=== PATIENT | female | born 1955 | race Two or more races ===

== ENCOUNTER 2017-08-01 11:55 | Emergency (ER) | payer BC ==
[~2017-08-01] VITALS: Ht 160 cm; Wt 57.6 kg
[~2017-08-01 11:55] MED LIST: AMIO100T4 PO; ANAS1TAB8 PO; ATEN-171 PO; BENA40TA2 PO; LEVO50TA8 PO; MIRT15TA7 PO; SERT25TA5 PO; SIMV40TA5 PO; WARF2TAB6 PO
[2017-08-01] MEDS ORDERED: IV NS 0.9% 250 ML IV ONE (12:00)
[2017-08-01] MEDS ORDERED: IOHEXOL-350 100 ML VIAL IV ONE (12:00)
[2017-08-01] MEDS ORDERED: METO25TA20 PO (12:08)
[2017-08-01] MEDS ORDERED: LEVO75TA7 PO (12:08)
[2017-08-01] MEDS: LIDOCAINE 100MG/5ML DISP SYR IV ONE (12:31)
[2017-08-01] MEDS ORDERED: NICARDIPINE IN DEXTROSE,ISO-OS 200 ML IV ONE (12:33)
[2017-08-01 12:36] LABS: BASOPHILS # (AUTO) 0.4 /CMM (0.0-0.2); BASOPHILS % (AUTO) 2.6 % (0.0-2.0); EOSINOPHILS # (AUTO) 0.2 /CMM (0.0-0.7); EOSINOPHILS % (AUTO) 1.8 % (0.0-6.0); HEMATOCRIT 34 % (33-45); HEMOGLOBIN 11.3 g/dL (11.5-14.8); LYMPHOCYTES # (AUTO) 2.1 /CMM (0.8-4.8); LYMPHOCYTES % (AUTO) 15.1 % (20.0-44.0); MEAN CORPUSCULAR HEMOGLOBIN 29 PG (26.0-33.0); MEAN CORPUSCULAR HGB CONC 33 g/dl (31.0-36.0); MEAN CORPUSCULAR VOLUME 86 fL (82-100); MONOCYTES # (AUTO) 1.4 /CMM (0.1-1.30); MONOCYTES % (AUTO) 10.4 % (2.0-12.0); NEUTROPHILS # (AUTO) 9.7 /CMM (1.8-8.9); NEUTROPHILS % (AUTO) 70.1 % (43.0-81.0); PLATELET COUNT (AUTO) 355 /CMM (150-450); RDW COEFFICIENT OF VARIATION 12.5 (11.5-15.0); RED BLOOD CELL COUNT(AUTO) 3.96 MIL/uL (4.0-5.2); WHITE BLOOD COUNT (AUTO) 13.8 K/uL (4.3-11.0)
[2017-08-01] MEDS: ETOMIDATE 2 MG/ML VIAL IV ONE (12:37)
[2017-08-01] MEDS: SUCCINYLCHOLINE CHLORIDE 20 MG/ML VIAL IV ONE (12:37)
[2017-08-01] MEDS: NICARDIPINE IN DEXTROSE,ISO-OS 200 ML IV ONE (12:39)
[2017-08-01 12:47] LABS: CALCIUM, SERUM 8.6 mg/dL (8.5-10.1); CREATININE 0.5 mg/dL (0.6-1.3); POTASSIUM 3.3 mmol/L (3.5-5.1)
[2017-08-01 12:49] LABS: INR 1.36 (0.87-1.13); PROTHROMBIN TIME 14.1 SECS (9.5-12.7)
[2017-08-01] MEDS: LEVETIRACETAM (500MG) 500 MG in IV NS 0.9% 100 ML IV SCH (12:50)
[2017-08-01 12:51] VITALS: BP 177/69
[2017-08-01] MEDS ORDERED: PROPOFOL 100 ML IV ONE (12:52)
[2017-08-01 12:53] LABS: ALBUMIN 3.1 g/dL (3.4-5.0); BILIRUBIN,DIRECT 0.1 mg/dL (0.0-0.2); BILIRUBIN,TOTAL 0.5 mg/dL (0.2-1.0); TOTAL PROTEIN, SERUM 7.8 g/dL (6.4-8.2)
[2017-08-01 12:56] LABS: TROPONIN I 0.038 ng/mL (0.00-0.056)
[2017-08-01] MEDS ORDERED: MANNITOL 50 ML IV ONE (12:57)
[2017-08-01] MEDS: PROPOFOL 100 ML IV ONE (13:10)
[2017-08-01] MEDS: MANNITOL 12.5 GM/50 ML VIAL IV ONE (13:10)
[2017-08-01] MEDS: PHYTONADIONE INJ 10 MG in IV D5W 50 ML SQ ONE (13:10)
[2017-08-01] MEDS: NICARDIPINE IN NACL, ISO-OSM 200 ML IV ONE (14:07)
== END 2017-08-01 14:16 | disposition home or self-care (01) ==
LOC: ER 11:57
DX: I62.9 Nontraumatic intracranial hemorrhage, unspecified (principal); J96.90 Respiratory failure, unspecified, unspecified whether with hypoxia or hypercapnia; E03.9 Hypothyroidism, unspecified; E78.00 Pure hypercholesterolemia, unspecified; I10 Essential (primary) hypertension; I25.2 Old myocardial infarction; I48.91 Unspecified atrial fibrillation; Z79.01 Long term (current) use of anticoagulants; Z86.711 Personal history of pulmonary embolism; Z86.73 Personal history of transient ischemic attack (TIA), and cerebral infarction without residual deficits; Z86.74 Personal history of sudden cardiac arrest; Z88.0 Allergy status to penicillin; Z93.0 Tracheostomy status; Z90.11 Acquired absence of right breast and nipple; Z93.1 Gastrostomy status
CPT/HCPCS: 31500; 36415; 70496; 70498; 71010 ×2; 80048; 80076; 84484; 85025; 85730; 86850; 93005; 96365; 96366; 96368; 96375; 99291; A4606; J0330; J1953; J2001; J2150 ×2; J3430; J3490 ×2; J7030; J7050; J7060; Q9967; Z7610

== ENCOUNTER 2017-09-16 12:03 | Inpatient (IN) | payer BC ==
[~2017-09-16] VITALS: Ht 160 cm; Wt 60.3 kg
[~2017-09-16 12:03] MED LIST changes: -ATEN-171 PO; -LEVO50TA8 PO; +LEVO75TA7 PO; +METO25TA20 PO
--- NOTE | 2017-09-16 12:03 | NUR ---
BBRA FROM SNF FOR SWOLLEN AND PROTRUDING TONGUE X 1 MONTH
--- NOTE | 2017-09-16 12:55 | NUR ---
RT: PT. 62 Y OLD FEMALE REC, IN ER PLACED ON [facility].VENT TRACHED PORTEX # 7 SETTINGS PER MD AND ALARMS ARE SET AND FUNCTIONAL. PT. LIGIA. WELL CONTINUE FOR MONITOR. AMBU BAG AT HE BEDSIDE. EQUAL CHEST RISE NOTED. VENT PLUGGED INTO RED OUTLET. Addendum: 09/16/17 at 1735 by AYDIN MCWILLIAMS RT Amended: Links added.
--- NOTE | 2017-09-16 13:00 | NUR ---
PORTEX 7 AC 16 TV 500 PEEP 5 FIO2 30 %
[2017-09-16 14:49] VITALS: BP 134/68
[2017-09-16 14:56] LABS: BASOPHILS # (AUTO) 0.1 /CMM (0.0-0.2); EOSINOPHILS # (AUTO) 0.4 /CMM (0.0-0.7); EOSINOPHILS % (AUTO) 4.4 % (0.0-6.0); HEMATOCRIT 30 % (33-45); HEMOGLOBIN 10.2 g/dL (11.5-14.8); LYMPHOCYTES # (AUTO) 1.6 /CMM (0.8-4.8); LYMPHOCYTES % (AUTO) 19.9 % (20.0-44.0); MEAN CORPUSCULAR HEMOGLOBIN 29 PG (26.0-33.0); MEAN CORPUSCULAR HGB CONC 34 g/dl (31.0-36.0); MEAN CORPUSCULAR VOLUME 86 fL (82-100); MONOCYTES # (AUTO) 0.9 /CMM (0.1-1.30); MONOCYTES % (AUTO) 11.2 % (2.0-12.0); NEUTROPHILS % (AUTO) 63.5 % (43.0-81.0); PLATELET COUNT (AUTO) 387 /CMM (150-450); RDW COEFFICIENT OF VARIATION 13.6 (11.5-15.0); RED BLOOD CELL COUNT(AUTO) 3.52 MIL/uL (4.0-5.2)
[2017-09-16 15:09] LABS: CARBON DIOXIDE 29 mmol/L (21-32); CHLORIDE 103 mmol/L (98-107); CREATININE 0.3 mg/dL (0.6-1.3); GLUCOSE 117 mg/dL (74-106); POTASSIUM 3.9 mmol/L (3.5-5.1); SODIUM SERUM 137 mmol/L (136-145); UREA NITROGEN, BLOOD 15 mg/dL (7-18)
[2017-09-16 15:12] LABS: INR 0.97 (0.87-1.13); PROTHROMBIN TIME 10.1 SECS (9.5-12.7)
[2017-09-16 15:15] LABS: ALANINE AMINOTRANSFERASE 22 U/L (12-78); ALBUMIN 2.4 g/dL (3.4-5.0); ALKALINE PHOSPHATASE 92 U/L (46-116); ASPARTATE AMINOTRANSFERASE 15 U/L (15-37); BILIRUBIN,TOTAL 0.2 mg/dL (0.2-1.0); TOTAL PROTEIN, SERUM 7.9 g/dL (6.4-8.2)
[2017-09-16 15:17] LABS: TROPONIN I < 0.017 ng/mL (0.00-0.056)
[2017-09-16] MEDS ORDERED: methylPREDNISolone SOD SUCC 125 MG/2ML VIAL IV ONE (16:00)
[2017-09-16] MEDS ORDERED: methylPREDNISolone SOD SUCC 125 MG/2ML VIAL ONE (16:08)
--- NOTE | 2017-09-16 16:14 | NUR ---
PT FURROWING EYEBROWS AND GRIMACING. MD NOTIFIED OF EXPRESSIONS OF PAIN. AWAITING ORDERS.
[2017-09-16] MEDS ORDERED: MAGN400O6 GT (16:25)
[2017-09-16] MEDS ORDERED: ACET-868 GT (16:25)
[2017-09-16] MEDS ORDERED: CALC-15 GT (16:25)
[2017-09-16] MEDS ORDERED: AMLO10TA2 GT (16:25)
[2017-09-16] MEDS ORDERED: LISI10TA5 GT (16:25)
[2017-09-16] MEDS ORDERED: METO50TA16 GT (16:25)
[2017-09-16] MEDS ORDERED: FERR220S2 GT (16:25)
[2017-09-16] MEDS ORDERED: LEVE100S GT (16:25)
[2017-09-16] MEDS ORDERED: HEPA50008 SQ (16:25)
[2017-09-16] MEDS ORDERED: HYDR-552 PO (16:25)
[2017-09-16] MEDS ORDERED: NA P133E RC (16:25)
[2017-09-16] MEDS ORDERED: SCOP1PAT TD (16:25)
[2017-09-16] MEDS ORDERED: ALBU2.5V38 IH (16:25)
[2017-09-16] MEDS ORDERED: CRAN3875 GT (16:25)
[2017-09-16] MEDS ORDERED: LEVO75TA7 GT (16:25)
[2017-09-16] MEDS ORDERED: DOCU-141 GT (16:25)
[2017-09-16] MEDS ORDERED: POLY15DR57 EACHEYE (16:25)
[2017-09-16] MEDS ORDERED: PANT40SU2 GT (16:25)
[2017-09-16] MEDS ORDERED: METRONIDAZOLE 500MG/ NS 100ML 100 ML IV ONE ×2 (16:30→17:03)
[2017-09-16] MEDS ORDERED: VANCOMYCIN 1 GM in IV D5W 250 ML IV ONE (16:30)
[2017-09-16] MEDS ORDERED: LACT-209 GT (16:50)
--- NOTE | 2017-09-16 16:54 | NUR ---
NAHID 113-1
[2017-09-16] MEDS ORDERED: HYDROMORPHONE 1 MG/1 ML DISP.SYRIN ONE (17:04)
[2017-09-16] MEDS ORDERED: ONDANSETRON HCL/PF 4 MG/2 ML VIAL ONE (17:04)
--- NOTE | 2017-09-16 17:12 | NUR ---
VERBAL ORDER DILAUDID 1MG AND ZOFRAN 4MG IVP X1 DR REEVES
[2017-09-16 17:23] VITALS: BP 130/73
--- NOTE | 2017-09-16 17:39 | NUR ---
GAVE REPORT TO STEWART RN NAHID ROOM 113 DR [facility] ADMITING LUDWIGS ANGINA
[2017-09-16] MEDS ORDERED: HYDROMORPHONE INJ 2 MG/ML DISP.SYRIN IV ONE (18:00)
[2017-09-16] MEDS ORDERED: ONDANSETRON HCL/PF 4 MG/2 ML VIAL IVP ONE (18:00)
--- NOTE | 2017-09-16 19:11 | NUR ---
RN NOTES - ADMISSION RECEIVED PATIENT FROM ER VIA RVERNON, TRANSFERRED TO ROOM 113-1, TOLERATED WELL. PATIENT IS ALERT AND ORIENTED X1 TO SELF, SOMETIMES NODDING YES/NO. PER FAMILY, PATIENT IS USUALLY MORE ALERT. TRACH MIDLINE AND INTACT, ON MECHANICAL VENTILATOR AT PRESCRIBED SETTINGS, TOLERATING WELL, FREE FROM ANY S/S OF RESPIRATORY DISTRESS. GT PATENT AND INTACT. IV SITE PATENT AND INTACT. SKIN ISSUES PHOTOGRAPHED AND DOCUMENTED PER PROTOCOL. BED IN LOWEST AND LOCKED POSITION. PLAN OF CARE DISCUSSED WITH THE PATIENT'S FAMILY MEMBERS, WHO VERBALIZE UNDERSTANDING. WILL CONTINUE TO CLOSELY MONITOR
[2017-09-16 20:00] VITALS: BP 159/82
[2017-09-16] MEDS ORDERED: NA PHOS,M-B/NA PHOS,DI-BA 1 EA ENEMA RC PRN (20:30)
[2017-09-16] MEDS ORDERED: Z GUARD REMEDY 2 OZ OINT TP PRN (20:30)
[2017-09-16] MEDS ORDERED: MAG HYDROX/AL HYDROX/SIMETH 30 ML UDC PO PRN (20:30)
[2017-09-16] MEDS ORDERED: MAGNESIUM HYDROXIDE 30 ML UDC GT PRN (20:30)
[2017-09-16] MEDS ORDERED: ACETAMINOPHEN 325 MG TABLET PO PRN ×2 (20:30)
[2017-09-16] MEDS ORDERED: HYDROCODONE/APAP 5/325MG 1 EACH TABLET PO SCH (20:30)
[2017-09-16] MEDS ORDERED: SCOPOLAMINE HBR 1 EA PATCH.TD72 TD SCH (20:30)
[2017-09-16] MEDS ORDERED: ZOLPIDEM TARTRATE 5 MG TABLET PO PRN (20:30)
[2017-09-16] MEDS ORDERED: MAGNESIUM HYDROXIDE 30 ML UDC PO PRN (20:30)
[2017-09-16] MEDS ORDERED: ONDANSETRON HCL/PF 4 MG/2 ML VIAL IVP PRN (20:30)
--- NOTE | 2017-09-16 20:35 | NUR ---
PT RECEIVED TRACHED PTX 7 ON VENT. NO RESP DISTRESS. PT TOLERATING VENT SETTINGS. SX'D FOR SML AMT OF THICK PALE SECRETIONS. VENT ALARMS SET AND AUDIBLE. AMBU BAG AT BEDSIDE. VENT PLUGGED INTO RED OUTLET. WILL CONTINUE TO MONITOR. Addendum: 09/16/17 at 2036 by OLGA HANEY RT Amended: Links added.
[2017-09-16] MEDS: HEPARIN SODIUM, PORCINE 5000 UNITS/1 ML VIAL SQ SCH (21:00)
--- NOTE | 2017-09-16 21:40 | NUR ---
RN NOTES - HEPARIN REFUSAL PATIENT'S FAMILY MEMBER AT BEDSIDE. TEACHING REGARDING MEDICATION RENDERED, BUT FAMILY REFUSES HEPARIN AT THIS TIME DUE TO TONGUE BLEEDING EARLIER IN THE DAY. NO NOTED BLEEDING AT THIS TIME, FAMILY MADE AWARE OF RISKS/CONSEQUENCES, WITH VERBALIZATION OF UNDERSTANDING, BUT STILL STRONGLY REFUSING. WILL CONTINUE TO CLOSELY MONITOR THE PATIENT
[2017-09-16] MEDS ORDERED: SCOPOLAMINE HBR 1 EA PATCH.TD72 TD ONE (21:49)
[2017-09-16] MEDS: FIBERSOURCE HN 1,000 ML BOTTLE GT PRN (22:00)
[2017-09-16] MEDS: DOCUSATE SODIUM 100 MG CAPSULE PO SCH (22:01)
[2017-09-16] MEDS: ALBUTEROL FS 2.5 MG/3 ML VIAL.NEB IH SCH (22:40)
--- NOTE | 2017-09-16 23:21 | NUR ---
RT NOTE: TRACH PT RECEIVED ON MECH VENT WITH NOTED SETTING. TRACH SECURED. CITY MAGISTRATE DONE. VENT PLUGGED INTO RED OUTLET. ALARMS SET AND AUDIBLE. AMBU BAG AT [facility]. NO SOB OR RESP DISTRESS NOTED. PRN SX GIVEN NEEDED. STARTED Q4 HHN TX ORDERED WITH NO ADVERSE REACTIONS. PATIENT'S FAMILY MEMBER AT BEDSIDE. WILL CONT TO MONITOR PT.
[2017-09-16] MEDS: HYDROCODONE/APAP 5/325MG 1 EACH TABLET PO PRN (23:22)
[2017-09-17] VITALS: BP 139/69
[2017-09-17] MEDS: ALBUTEROL FS 2.5 MG/3 ML VIAL.NEB IH SCH ×6 (03:13→23:07)
[2017-09-17 04:00] VITALS: BP 118/60
--- NOTE | 2017-09-17 07:00 | NUR ---
RN CLOSING NOTES PATIENT RESTING IN BED, APPEARS COMFORTABLE. WILL ENDORSE THE PATIENT TO THE AM SHIFT NURSE FOR EDWARD
[2017-09-17 07:56] LABS: HEMATOCRIT 33 % (33-45); HEMOGLOBIN 11.1 g/dL (11.5-14.8); LYMPHOCYTES % (AUTO) 11.8 % (20.0-44.0); MEAN CORPUSCULAR HEMOGLOBIN 29 PG (26.0-33.0); MEAN CORPUSCULAR HGB CONC 34 g/dl (31.0-36.0); MEAN CORPUSCULAR VOLUME 86 fL (82-100); MONOCYTES # (AUTO) 0.6 /CMM (0.1-1.30); MONOCYTES % (AUTO) 6.6 % (2.0-12.0); NEUTROPHILS % (AUTO) 81.6 % (43.0-81.0); PLATELET COUNT (AUTO) 414 /CMM (150-450); RDW COEFFICIENT OF VARIATION 14.3 (11.5-15.0); RED BLOOD CELL COUNT(AUTO) 3.79 MIL/uL (4.0-5.2); WHITE BLOOD COUNT (AUTO) 8.6 K/uL (4.3-11.0)
[2017-09-17 08:00] VITALS: BP 145/67
[2017-09-17] MEDS: PANTOPRAZOLE 40 MG/PACK PACK GT SCH (08:14)
[2017-09-17] MEDS: LEVETIRACETAM SOL (5 ML) 100 MG/ML UDC GT SCH ×2 (08:14→17:38)
[2017-09-17] MEDS: LEVOTHYROXINE SODIUM 75 MCG TABLET GT SCH (08:14)
[2017-09-17] MEDS: AMLODIPINE BESYLATE 10 MG TABLET GT SCH (08:15)
[2017-09-17] MEDS: METOPROLOL TARTRATE 50 MG TABLET GT SCH ×2 (08:15→17:40)
[2017-09-17] MEDS: methylPREDNISolone SOD SUCC 125 MG/2ML VIAL IV SCH ×3 (08:17→17:40)
[2017-09-17] MEDS: HEPARIN SODIUM, PORCINE 5000 UNITS/1 ML VIAL SQ SCH ×2 (08:19→21:48)
[2017-09-17 08:33] LABS: CALCIUM, SERUM 8.9 mg/dL (8.5-10.1); CREATININE 0.4 mg/dL (0.6-1.3); MAGNESIUM 2.2 mg/dL (1.8-2.4); PHOSPHORUS 4.3 mg/dL (2.5-4.9)
[2017-09-17] MEDS ORDERED: LISINOPRIL (10MG) 10 MG TABLET GT SCH (09:00)
[2017-09-17] MEDS ORDERED: diphenhydrAMINE HCL 50 MG/ML VIAL IV PRN (10:30)
[2017-09-17] MEDS: HYDROCODONE/APAP 5/325MG 1 EACH TABLET PO PRN ×2 (11:37→22:07)
[2017-09-17 12:00] VITALS: BP 146/61
[2017-09-17 16:00] VITALS: BP 133/55
--- NOTE | 2017-09-17 17:26 | NUR ---
RECEIVED PT ON [place] R860, VENT, ALARMS ON AND AUDIBLE, TRACH PATENT AND SECURED, AMBUBAG AT BEDSIDE, VENT PLUGGED INTO RED OUTLET, TXS GIVEN ORDERED NO ADVERSE REACTION NOTED PT STABLE. Addendum: 09/17/17 at 1730 by JAIRO CROSS RT Amended: Links added.
--- NOTE | 2017-09-17 19:30 | NUR ---
Received patient in the bed.No unusual signs or symptoms observed or reported,no signs of discomfort or distress.Female family member at bedside,assisting with emotional support and informing us of patient's needs,which we then take care off,no problems.
[2017-09-17 20:00] VITALS: BP 138/53
[2017-09-17] MEDS: DOCUSATE SODIUM 100 MG CAPSULE PO SCH (21:45)
--- NOTE | 2017-09-17 23:00 | NUR ---
Resting quietly,occasional suctioning required.Turn q2h and place in comfortable position,no problems.
[2017-09-18] VITALS: BP 149/55
--- NOTE | 2017-09-18 01:00 | NUR ---
family member member left about this time,no problems
[2017-09-18] MEDS: ALBUTEROL FS 2.5 MG/3 ML VIAL.NEB IH SCH ×6 (03:18→23:50)
[2017-09-18 04:00] VITALS: BP 147/61
[2017-09-18 07:37] LABS: CALCIUM, SERUM 8.7 mg/dL (8.5-10.1); CREATININE 0.5 mg/dL (0.6-1.3); POTASSIUM 3.5 mmol/L (3.5-5.1)
--- NOTE | 2017-09-18 07:51 | NUR ---
RN INITIAL NOTE: RECEIVED PT A/O1. ON TELE MONITORING SR. ON G TUBE FEEDING FIBERSOURCE AT 60ML/HR. SITE CLEAR AND PATENT. NO DISTRESS NOTED NO SOB NOTED. NO PAIN NOTED. L AC HEP LOCK. NO IV FLUIDS RUNNING. SITE CLEAR AND PATENT. RESTING COMFORTABLY IN BED. CALL LIGHT WITHIN REACH.
[2017-09-18 07:52] LABS: BASOPHILS % (AUTO) 0.3 % (0.0-2.0); EOSINOPHILS % (AUTO) 0.1 % (0.0-6.0); HEMATOCRIT 32 % (33-45); HEMOGLOBIN 10.5 g/dL (11.5-14.8); LYMPHOCYTES % (AUTO) 8.4 % (20.0-44.0); MEAN CORPUSCULAR HEMOGLOBIN 29 PG (26.0-33.0); MEAN CORPUSCULAR HGB CONC 33 g/dl (31.0-36.0); MEAN CORPUSCULAR VOLUME 86 fL (82-100); MONOCYTES # (AUTO) 1.6 /CMM (0.1-1.30); MONOCYTES % (AUTO) 13.5 % (2.0-12.0); NEUTROPHILS # (AUTO) 9.1 /CMM (1.8-8.9); NEUTROPHILS % (AUTO) 77.7 % (43.0-81.0); PLATELET COUNT (AUTO) 434 /CMM (150-450); RDW COEFFICIENT OF VARIATION 13.9 (11.5-15.0); RED BLOOD CELL COUNT(AUTO) 3.66 MIL/uL (4.0-5.2); WHITE BLOOD COUNT (AUTO) 11.7 K/uL (4.3-11.0)
[2017-09-18 08:00] VITALS: BP 167/66
[2017-09-18] MEDS: METOPROLOL TARTRATE 50 MG TABLET GT SCH ×2 (08:10→17:33)
[2017-09-18] MEDS: AMLODIPINE BESYLATE 10 MG TABLET GT SCH (08:10)
[2017-09-18] MEDS: LEVETIRACETAM SOL (5 ML) 100 MG/ML UDC GT SCH ×2 (08:10→17:32)
[2017-09-18] MEDS: LEVOTHYROXINE SODIUM 75 MCG TABLET GT SCH (08:10)
[2017-09-18] MEDS: PANTOPRAZOLE 40 MG/PACK PACK GT SCH (08:11)
[2017-09-18] MEDS: HEPARIN SODIUM, PORCINE 5000 UNITS/1 ML VIAL SQ SCH ×2 (08:11→21:19)
[2017-09-18] MEDS: methylPREDNISolone SOD SUCC 125 MG/2ML VIAL IV SCH ×3 (08:11→17:32)
[2017-09-18] MEDS: FIBERSOURCE HN 1,000 ML BOTTLE GT PRN (08:13)
[2017-09-18 12:00] VITALS: BP 142/56
--- NOTE | 2017-09-18 14:24 | NUR ---
RT. SPUTUM CULTURE DONE PER MD ORDER, ABRIL ALANIS MADE AWARE
[2017-09-18 16:00] VITALS: BP 142/60
[2017-09-18 16:10] LABS: APPEARANCE,URINE SL CLOUDY (CLEAR); BILIRUBIN,URINE NEGATIVE (NEGATIVE); BLOOD, URINE 1+ Ery/uL (NEGATIVE); COLOR,URINE YELLOW (YELLOW); KETONES,URINE NEGATIVE (NEGATIVE); LEUKOCYTE ESTERASE ,URINE 1+ (NEGATIVE); NITRITE, URINE NEGATIVE (NEGATIVE); PROTEIN,URINE NEGATIVE (NEGATIVE); UGLUCOSE NEGATIVE (NEGATIVE); UROBILINOGEN,URINE 0.2 EU/dL (0.2)
--- NOTE | 2017-09-18 16:14 | NUR ---
RT RECEIVED PT ON AC MODE ON GE VENT, ALARMS ON AND AUDIBLE, VENT PLUGGED INTO RED OUTLET, TRACH PATENT AND SECURED, AMBUBAG AT BEDSIDE, TXS GIVEN ORDERED NO ADVERSE REACTION NOTED, PT STABLE. Addendum: 09/18/17 at 1616 by JAIRO CROSS RT Amended: Links added.
[2017-09-18 16:38] LABS: BACTERIA,URINE Few /HPF (None Seen); SQUAMOUS EPITHELIAL CELL,UR Few /HPF (None Seen); WBC,URINE 21-50 /HPF (0-3)
[2017-09-18] MEDS: IV 1/2NS 1000 ML 1,000 ML IV PRN (17:50)
[2017-09-18] MEDS: LEVOFLOXACIN 750 MG /D5W 150ML 750 MG in PREMIX 1 EA IV SCH (17:51)
--- NOTE | 2017-09-18 18:46 | NUR ---
FLY FISHING GUIDE: CLOSING NOTE ADMINISTERED ALL MEDICATIONS ON TIME. NO ADVERSE REACTIONS NOTED. NO PAIN NOTED. A/OX1. NON-VERBAL. ON MECHANICAL VENTILATION. PORTEX 7, AC 16, TV 500, FIO2 30%, PEEP 5. ON BEDREST. ON FIBERSOURCE G-TUBE FEEDING AT RATE OF 60ML/HR. NO RESIDUAL NOTED. SITE CLEAR AND PATENT. L HAND #20 RUNNING 1/2 NS AT 60ML/HR. SITE CLEAR AND PATENT. TURNED AND REPOSITIONED Q 2HOURS. RESTING COMFORTABLY IN BED. CALL LIGHT WITHIN REACH.
--- NOTE | 2017-09-18 19:15 | NUR ---
RN INITIAL NOTES RECEIVED PATIENT IN BED, AROUSABLE WITH VERBAL AND TACTILE STIMULI WITH PATIENT'S EYE OPENING NOTED, POOR TRACKING. PATIENT ON MECH VENT VIA TRACH, TOLERATING CURRENT SETTINGS WELL WITH NO DISTRESS. AIRWAY SUCTIONED NEEDED. PATIENT IS SR ON TELE WITH HR OF 87. GT IN PLACE, GTF INFUSING, TOLERATED WELL WITH NO GASTRIC RESIDUAL. PATIENT NOTED WITH TONGUE PROTRUSION, NOTED WITH DRY AND SCALY TONGUE, ORAL CARE RENDERED NEEDED. L HAND G20, FLUSHED AND PATENT, NO SIGNS OF INFILTRATION, IVF ORDERED. PATIENT'S NEEDS ANTICIPATED AND MET. SAFETY AND COMFORT ENSURED. BED IN LOW AND LOCKED POSITION. CALL LIGHT IN REACH. WILL MONITOR. PATIENT'S FAMILY AT BEDSIDE.
[2017-09-18 20:00] VITALS: BP 149/58
[2017-09-18] MEDS: DOCUSATE SODIUM 100 MG CAPSULE PO SCH (21:09)
[2017-09-18] MEDS: HYDROCODONE/APAP 5/325MG 1 EACH TABLET PO PRN (23:54)
[2017-09-19] VITALS: BP 147/59
[2017-09-19] MEDS: FIBERSOURCE HN 1,000 ML BOTTLE GT PRN (00:01)
[2017-09-19] MEDS: ALBUTEROL FS 2.5 MG/3 ML VIAL.NEB IH SCH ×5 (02:53→19:27)
[2017-09-19] MEDS: IV 1/2NS 1000 ML 1,000 ML IV PRN (03:47)
[2017-09-19 04:00] VITALS: BP 148/60
--- NOTE | 2017-09-19 05:35 | NUR ---
END OF SHIFT. NO DISTRESS NOTED. VENT WELL FUNCTIONING WITH ALARMS ON AND AUDIBLE. AMBU BAG AT BEDSIDE. NO SOB/ DISTRESS NOTED ALL SHIFT. SX PRN MOD THICK YELLOW SECRETIONS. NO CHANGES NOTED IN PT STATUS.
--- NOTE | 2017-09-19 06:33 | NUR ---
RN CLOSING NOTE PATIENT WITH NO ACUTE CHANGE IN CONDITION OBSERVED OVERNIGHT. REMAINS SR WITH HR OF 88. PATIENT KEPT CLEAN AND DRY. AIRWAY SUCTIONED AND TRACH CARE DONE. ALL DUE MEDS GIVEN ORDERED. IVF ORDERED. GTF TOLERATED WELL, NO RESIDUAL. HOB ELEVATED. NEEDS ANTICIPATED AND MET. TURNED AND REPOSITIONED. WILL ENDORSE ACCORDINGLY FOR CONTINUITY OF CARE.
[2017-09-19 07:22] LABS: BASOPHILS % (AUTO) 0.1 % (0.0-2.0); EOSINOPHILS % (AUTO) 0.3 % (0.0-6.0); HEMATOCRIT 31 % (33-45); HEMOGLOBIN 10.5 g/dL (11.5-14.8); LYMPHOCYTES # (AUTO) 0.8 /CMM (0.8-4.8); LYMPHOCYTES % (AUTO) 6.3 % (20.0-44.0); MEAN CORPUSCULAR HEMOGLOBIN 29 PG (26.0-33.0); MEAN CORPUSCULAR HGB CONC 34 g/dl (31.0-36.0); MEAN CORPUSCULAR VOLUME 86 fL (82-100); MONOCYTES # (AUTO) 1.8 /CMM (0.1-1.30); MONOCYTES % (AUTO) 14.5 % (2.0-12.0); NEUTROPHILS # (AUTO) 9.9 /CMM (1.8-8.9); NEUTROPHILS % (AUTO) 78.8 % (43.0-81.0); PLATELET COUNT (AUTO) 323 /CMM (150-450); RDW COEFFICIENT OF VARIATION 14.9 (11.5-15.0); RED BLOOD CELL COUNT(AUTO) 3.58 MIL/uL (4.0-5.2); WHITE BLOOD COUNT (AUTO) 12.6 K/uL (4.3-11.0)
[2017-09-19 07:55] LABS: CALCIUM, SERUM 9.2 mg/dL (8.5-10.1); CREATININE 0.5 mg/dL (0.6-1.3); POTASSIUM 3.8 mmol/L (3.5-5.1)
[2017-09-19 08:00] VITALS: BP 153/65
[2017-09-19] MEDS: HEPARIN SODIUM, PORCINE 5000 UNITS/1 ML VIAL SQ SCH (10:05)
[2017-09-19] MEDS: methylPREDNISolone SOD SUCC 125 MG/2ML VIAL IV SCH ×3 (10:05→16:52)
[2017-09-19] MEDS: LEVOTHYROXINE SODIUM 75 MCG TABLET GT SCH (10:06)
[2017-09-19] MEDS: PANTOPRAZOLE 40 MG/PACK PACK GT SCH (10:07)
[2017-09-19] MEDS: METOPROLOL TARTRATE 50 MG TABLET GT SCH ×2 (10:07→16:52)
[2017-09-19] MEDS: AMLODIPINE BESYLATE 10 MG TABLET GT SCH (10:07)
[2017-09-19] MEDS: LEVETIRACETAM SOL (5 ML) 100 MG/ML UDC GT SCH ×2 (10:08→16:50)
[2017-09-19 12:00] VITALS: BP 155/66
[2017-09-19] MEDS ORDERED: methylPREDNISolone SOD SUCC IV (13:12)
[2017-09-19] MEDS ORDERED: MERO1VIA3 IV (13:12)
[2017-09-19 16:00] VITALS: BP 143/60
[2017-09-19 16:52] VITALS: BP 143/60
[2017-09-19] MEDS: LEVOFLOXACIN 750 MG /D5W 150ML 750 MG in PREMIX 1 EA IV SCH (17:00)
--- NOTE | 2017-09-19 17:52 | NUR ---
PATIENT TOLERATING MECHANICAL VENT ON CURRENT ORDERED SETTINGS. NO S/S OF RESPIRATORY DISTRESS. TRACH IS PATENT AND SECURE. VENT PLUGGED INTO RED OUTLET. ALARMS ARE SET AND FUNCTIONING. AMBU BAG AND BACKUP TRACH AT BEDSIDE. Addendum: 09/19/17 at 1753 by ROEL MOSCOSO RT Amended: Links added.
--- NOTE | 2017-09-19 19:16 | NUR ---
Patient refused discharge pictures of skin problems.
--- NOTE | 2017-09-19 20:15 | NUR ---
[facility] OFF THE FLOOR WITH EMS FOR TRANSPORT.
== END 2017-09-19 20:21 | DRG 811 ==
LOC: ER 14:38 → TELE-TD 17:08 → TELE1 20:47
PROVIDERS: ADMIT Family Medicine; ATTEND Family Medicine
PROC: 5A1945Z Respiratory Ventilation, 24-96 Consecutive Hours (ICD-10-PCS; principal; 2017-09-16)
DX: T78.3XXA Angioneurotic edema, initial encounter (principal); G93.49 Other encephalopathy; Z99.11 Dependence on respirator [ventilator] status; R40.3 Persistent vegetative state; J96.11 Chronic respiratory failure with hypoxia; Z93.0 Tracheostomy status; Z93.1 Gastrostomy status; Z86.73 Personal history of transient ischemic attack (TIA), and cerebral infarction without residual deficits; I10 Essential (primary) hypertension; E78.5 Hyperlipidemia, unspecified; E03.9 Hypothyroidism, unspecified; I25.10 Atherosclerotic heart disease of native coronary artery without angina pectoris; I25.2 Old myocardial infarction; R13.10 Dysphagia, unspecified; Z85.3 Personal history of malignant neoplasm of breast; Z86.711 Personal history of pulmonary embolism; Z90.11 Acquired absence of right breast and nipple; Z88.0 Allergy status to penicillin; D63.8 Anemia in other chronic diseases classified elsewhere; N39.0 Urinary tract infection, site not specified; B96.4 Proteus (mirabilis) (morganii) as the cause of diseases classified elsewhere; T46.4X5A Adverse effect of angiotensin-converting-enzyme inhibitors, initial encounter; Y84.8 Other medical procedures as the cause of abnormal reaction of the patient, or of later complication, without mention of misadventure at the time of the procedure; Y92.129 Unspecified place in nursing home as the place of occurrence of the external cause; K04.7 Periapical abscess without sinus; Z79.899 Other long term (current) drug therapy; Z86.74 Personal history of sudden cardiac arrest
CPT/HCPCS: 31720; 36415; 70486-TC; 71045-TC; 74018; 80048-TC; 80061-TC; 80076-TC; 81000-TC; 83605-TC; 83735-TC; 84100-TC; 84484-TC; 85025-TC; 85730-TC; 87040-TC; 87070-TC; 87081-TC; 87086-TC; 87186-TC; 94003-TC; 94640-TC; 94760-TC; A4216; A4606; A6403; J1170; J1644; J1953; J1956; J2405; J2930; J3370; J3490; J7060; Z7610

== ENCOUNTER 2017-11-12 23:21 | Inpatient (IN) | payer BC ==
[~2017-11-12] VITALS: Ht 167.6 cm; Wt 59.9 kg
[~2017-11-12 23:21] MED LIST changes: +ACET-868 GT; +ALBU2.5V38 IH; -AMIO100T4 PO; +AMLO10TA2 GT; -ANAS1TAB8 PO; -BENA40TA2 PO; +CALC-15 GT; +CRAN3875 GT; +DOCU-141 GT; +FERR220S2 GT; +HEPA50008 SQ; +HYDR-552 PO; +LACT-209 GT; +LEVE100S GT; +LEVO75TA7 GT; -LEVO75TA7 PO; +MAGN400O6 GT; +MERO1VIA3 IV; -METO25TA20 PO; +METO50TA16 GT; -MIRT15TA7 PO; +NA P133E RC; +PANT40SU2 GT; +POLY15DR57 EACHEYE; +SCOP1PAT TD; -SERT25TA5 PO; -SIMV40TA5 PO; -WARF2TAB6 PO; +methylPREDNISolone SOD SUCC IV
--- NOTE | 2017-11-12 23:25 | NUR ---
.TO BED 5 A 62 YO FEMALE PATIENT BIBRA FROM SNF FOR "POSSIBLE SEIZURE." PATIENT OPENS EYES, NONVERBAL, WITH TRACH TO MECH VENT, NOTED WITH RIGHT ARM TWITCHING. VSS. NAD NOTED. SKIN WARM AND DRY. MAINTAINED PATENT AIRWAY. COMFORT MEASURES RENDERED. SEIZURE PRECAUTIONS IN PLACE.
--- NOTE | 2017-11-12 23:38 | NUR ---
PT REC'D TRACHED PORTEX 7 VIA AMBU BAG 15LPM. PT PLACED ON NOTED [facility] VENT SETTINGS GIVEN FROM EMT. AMBU BAG BEDSIDE, ALARMS ARE SET AND AUDIBLE. VENT PLUGGED INTO RED OUTLET. WILL CONTINUE TO MONITOR. Addendum: 11/12/17 at 2347 by JANEE HENRIQUEZ RT Amended: Links added.
[2017-11-12 23:40] VITALS: BP 172/101
[2017-11-13] VITALS (7 sets, daily range): BP systolic 105–178; BP diastolic 53–101
[2017-11-13] MEDS ORDERED: LORAZEPAM INJ 2 MG/ML VIAL IV ONE
[2017-11-13] MEDS ORDERED: LEVETIRACETAM (500MG) 1,000 MG in IV NS 0.9% 100 ML IV SCH ×2
[2017-11-13] MEDS ORDERED: IV NS 0.9% 1,000 ML BAG IV ONE
[2017-11-13] MEDS ORDERED: LORAZEPAM INJ 2 MG/ML VIAL ONE (00:21)
--- NOTE | 2017-11-13 00:25 | NUR ---
started a saline lock on the left hand g18, blood drawn and sent to lab.
--- NOTE | 2017-11-13 00:29 | NUR ---
xr at bedside.
[2017-11-13] MEDS ORDERED: LEVETIRACETAM (500MG) 500 MG/5 ML VIAL IV ONE (00:44)
[2017-11-13 00:50] LABS: BASOPHILS % (AUTO) 0.5 % (0.0-2.0); EOSINOPHILS # (AUTO) 0.2 /CMM (0.0-0.7); EOSINOPHILS % (AUTO) 4.5 % (0.0-6.0); HEMATOCRIT 29 % (33-45); LYMPHOCYTES # (AUTO) 1.3 /CMM (0.8-4.8); MEAN CORPUSCULAR HEMOGLOBIN 30 PG (26.0-33.0); MEAN CORPUSCULAR HGB CONC 34 g/dl (31.0-36.0); MEAN CORPUSCULAR VOLUME 87 fL (82-100); MONOCYTES # (AUTO) 0.6 /CMM (0.1-1.30); MONOCYTES % (AUTO) 16.9 % (2.0-12.0); NEUTROPHILS # (AUTO) 1.6 /CMM (1.8-8.9); NEUTROPHILS % (AUTO) 44.1 % (43.0-81.0); PLATELET COUNT (AUTO) 291 /CMM (150-450); RDW COEFFICIENT OF VARIATION 15.4 (11.5-15.0); RED BLOOD CELL COUNT(AUTO) 3.39 MIL/uL (4.0-5.2); WHITE BLOOD COUNT (AUTO) 3.7 K/uL (4.3-11.0)
[2017-11-13 01:11] LABS: CALCIUM, SERUM 8.8 mg/dL (8.5-10.1); CREATININE 0.3 mg/dL (0.6-1.3); POTASSIUM 3.7 mmol/L (3.5-5.1)
[2017-11-13] MEDS ORDERED: OMEP20CA10 PO (04:13)
--- NOTE | 2017-11-13 04:57 | NUR ---
REPORT GIVEN TO SAWYER ALANIS FOR NAHID ADMISSION AND EDWARD.
--- NOTE | 2017-11-13 05:00 | NUR ---
RECEIVED PATIENT FROM ER BY STRETCHER- PATIENT IS VENT/TRACH DEPENDENT, NO DISTRESS NOTED, PATIENT WAS HELPED TO BED, PATIENT'S DAUGHTER AT THE BEDSIDE ATTENTIVE TO THE PATIENT. SAFETY MEASURES IMPLEMENTED. CONTINUE TO MONITOR
--- NOTE | 2017-11-13 05:23 | NUR ---
Transferred patient to ileana bed via als protocol, no incident noted.
[2017-11-13] MEDS ORDERED: MAGNESIUM HYDROXIDE 30 ML UDC PO PRN (07:00)
[2017-11-13] MEDS ORDERED: ALBUTEROL FS 2.5 MG/3 ML VIAL.NEB IH PRN (07:00)
[2017-11-13] MEDS ORDERED: MAG HYDROX/AL HYDROX/SIMETH 30 ML UDC PO PRN (07:00)
[2017-11-13] MEDS ORDERED: ACETAMINOPHEN 325 MG TABLET PO PRN (07:00)
[2017-11-13] MEDS ORDERED: ONDANSETRON HCL/PF 4 MG/2 ML VIAL IVP PRN (07:00)
[2017-11-13] MEDS ORDERED: Z GUARD REMEDY 2 OZ OINT TP PRN (07:00)
[2017-11-13] MEDS ORDERED: HYDROCODONE/APAP 5/325MG 1 EACH TABLET PO PRN (07:00)
[2017-11-13] MEDS ORDERED: ZOLPIDEM TARTRATE 5 MG TABLET PO PRN (07:00)
--- NOTE | 2017-11-13 08:09 | NUR ---
RN INITIAL NOTE PATIENT RECEIVED IN BED SLEEPING WITH FAMILY AT BESIDE, NO SEIZURE ACTIVITY NOTED AT THIS TIME, PATIENT PORTEX 7 AC 16 TV 500, PEEP [address] WE[address]. PATIENT [address] ON MONITOR PATIENT LABS MONITORED, RN WILL CONTINUE TO MONITOR THROUGHOUT THE DAY
[2017-11-13] MEDS: AMLODIPINE BESYLATE 10 MG TABLET GT SCH (08:51)
[2017-11-13] MEDS: LEVOTHYROXINE SODIUM 75 MCG TABLET GT SCH (08:51)
[2017-11-13] MEDS: POLYVINYL ALCOHOL 15 ML BOTTLE EACHEYE SCH ×2 (08:51→17:22)
[2017-11-13] MEDS: FERROUS SULFATE UDC 300 MG/5 ML UDC GT SCH ×2 (08:52→17:21)
[2017-11-13] MEDS: METOPROLOL TARTRATE 25 MG TABLET GT SCH ×2 (08:52→21:24)
[2017-11-13] MEDS: ENOXAPARIN SODIUM 40 MG/0.4 ML DISP.SYRIN SQ SCH (08:53)
[2017-11-13] MEDS ORDERED: Medication Not On Formulary EA (Cran/Vitc/Mannose/Inulin/Brom (Uti-Stat Liquid) 30 MG) GT SCH (09:00)
[2017-11-13] MEDS: FIBERSOURCE HN 1,000 ML BOTTLE GT PRN (14:03)
[2017-11-13 16:27] LABS: MAGNESIUM 2.1 mg/dL (1.8-2.4); PHOSPHORUS 4.5 mg/dL (2.5-4.9)
[2017-11-13] MEDS: LEVETIRACETAM SOL (5 ML) 100 MG/ML UDC PO SCH (17:21)
--- NOTE | 2017-11-13 18:16 | NUR ---
Rn closing note Patient remains stable throughout the day. All medications rendered, No SOB noted, patient tolerated vent settings well, no pain noted throughout the day. Vital signs with normal limits. Patient kept clean, dry, and comfortable at all times.Labs monitored throughout the shift, patient started on g-tube feeding FiberSource at 55ml/hr tolerating well no residuals noted , circulation noted without issues, patient remains alert at this time family at bedside, RN will endorse continuation of care to pm RN .
--- NOTE | 2017-11-13 18:39 | NUR ---
Patient is trach/vent dependent, resides at [facility] [phone]. She is bedbound and totally dependent with adl's. Will transfer back to [facility] once discharge. Addendum: 11/13/17 at 1850 by YOSELYN JADE RN Amended: Links added.
--- NOTE | 2017-11-13 19:30 | NUR ---
NAHID RN INITIAL NOTES RECEIVED PATIENT AWAKE, NON-VERBAL, VENT DEPENDENT. DAUGHTER AT BEDSIDE. NO RESPIRATORY DISTRESS NOTED. WITH VENT SETTINGS AC 16, TV 500, FIO2 35%, PEEP 5K. SPO2 98%. TRACH C/D/I. ON TELE MONITOR SR 61. WITH GT PATENT AND INTACT, IN PLACE, NO RESIDUAL NOTED. HOB ELEVATED. SIDE RAILS UP AND LOCKED. BED KEPT AT LOWEST POSITION. CALL LIGHT KEPT WITHIN EASY REACH. WILL CONTINUE TO MONITOR.
[2017-11-13 21:06] LABS: APPEARANCE,URINE CLEAR (CLEAR); BILIRUBIN,URINE NEGATIVE (NEGATIVE); BLOOD, URINE NEGATIVE Ery/uL (NEGATIVE); COLOR,URINE YELLOW (YELLOW); KETONES,URINE NEGATIVE (NEGATIVE); LEUKOCYTE ESTERASE ,URINE NEGATIVE (NEGATIVE); NITRITE, URINE NEGATIVE (NEGATIVE); PROTEIN,URINE NEGATIVE (NEGATIVE); UGLUCOSE NEGATIVE (NEGATIVE); UROBILINOGEN,URINE 0.2 EU/dL (0.2)
[2017-11-14] VITALS (7 sets, daily range): BP systolic 112–145; BP diastolic 56–76
--- NOTE | 2017-11-14 07:26 | NUR ---
NAHID RN CLOSING NOTES NO SIGNIFICANT CHANGES OVERNIGHT. NO RESPIRATORY DISTRESS NOTED. NO SEIZURE ACTIVITY. SEIZURE PRECAUTIONS OBSERVED. TOLERATED VENT SETTINGS, TOLERATING GTF, GT PATENT AND INTACT. KEPT CLEAN AND DRY. TURNED AND REPOSITIONED Q2 AND PRN. HOB ELEVATED. SIDE RAILS UP AND LOCKED. BED KEPT AT LOWEST POSITION. CONTINUITY OF CARE ENDORSED TO AM NURSE.
[2017-11-14 07:46] LABS: BASOPHILS % (AUTO) 1.1 % (0.0-2.0); EOSINOPHILS # (AUTO) 0.2 /CMM (0.0-0.7); EOSINOPHILS % (AUTO) 4.3 % (0.0-6.0); HEMATOCRIT 30 % (33-45); HEMOGLOBIN 10.5 g/dL (11.5-14.8); LYMPHOCYTES # (AUTO) 1.2 /CMM (0.8-4.8); LYMPHOCYTES % (AUTO) 28.2 % (20.0-44.0); MEAN CORPUSCULAR HEMOGLOBIN 30 PG (26.0-33.0); MEAN CORPUSCULAR HGB CONC 35 g/dl (31.0-36.0); MEAN CORPUSCULAR VOLUME 86 fL (82-100); MONOCYTES # (AUTO) 0.5 /CMM (0.1-1.30); MONOCYTES % (AUTO) 12.7 % (2.0-12.0); NEUTROPHILS # (AUTO) 2.3 /CMM (1.8-8.9); NEUTROPHILS % (AUTO) 53.7 % (43.0-81.0); PLATELET COUNT (AUTO) 307 /CMM (150-450); RDW COEFFICIENT OF VARIATION 15.6 (11.5-15.0); RED BLOOD CELL COUNT(AUTO) 3.52 MIL/uL (4.0-5.2); WHITE BLOOD COUNT (AUTO) 4.3 K/uL (4.3-11.0)
[2017-11-14 08:00] LABS: CALCIUM, SERUM 8.8 mg/dL (8.5-10.1); CREATININE 0.4 mg/dL (0.6-1.3); MAGNESIUM 2.1 mg/dL (1.8-2.4); PHOSPHORUS 4.6 mg/dL (2.5-4.9); POTASSIUM 3.4 mmol/L (3.5-5.1)
--- NOTE | 2017-11-14 08:00 | NUR ---
TD/RN AM SHIFT INITIAL NOTES RECEIVED PT AWAKE WITH AT BEDSIDE. PT OPEN EYES, NON-VERBAL, NO ACUTE CHANGE OF CONDITION OR GRIMACING NOTED. PT ON VENTILATOR WITH RATES SET PRESCRIBED, SATURATING @ 99%, LUNG SOUNDS CLEAR, SUCTIONED FOR AIRWAY CLEARANCE. RESPIRATIONS EVEN & UNLABORED. ON TELE WITH SINUS SUE, HR 52, ASYMPTOMATIC BP135/56. GT FEEDING ON GOING @ 70CC/HR, NO GASTRIC RESIDUAL NOTED, FLUSHED, PATENT. AM MEDS GIVEN, EXCEPT FOR METOPROLOL D/T DECREASED HR. IV SITE FLUSHED, PATENT WITH NO S/S OF INFECTION, SL. PT IS COMFORTABLE. CL WITHIN REACHED, SAFETY MAINTAINED AND SEIZURE PRECAUTION OBSERVED. ON GOING MONITORING.
[2017-11-14] MEDS: METOPROLOL TARTRATE 25 MG TABLET GT SCH ×2 (09:00→21:55)
[2017-11-14] MEDS ORDERED: PROSOURCE / PROSTAT (PYXIS) 30 ML UDC GT SCH (09:00)
[2017-11-14] MEDS: LEVOTHYROXINE SODIUM 75 MCG TABLET GT SCH (09:32)
[2017-11-14] MEDS: LEVETIRACETAM SOL (5 ML) 100 MG/ML UDC PO SCH ×2 (09:33→21:55)
[2017-11-14] MEDS: FERROUS SULFATE UDC 300 MG/5 ML UDC GT SCH ×2 (09:33→16:24)
[2017-11-14] MEDS: POLYVINYL ALCOHOL 15 ML BOTTLE EACHEYE SCH ×2 (09:33→16:24)
[2017-11-14] MEDS: AMLODIPINE BESYLATE 10 MG TABLET GT SCH (09:33)
[2017-11-14] MEDS: ENOXAPARIN SODIUM 40 MG/0.4 ML DISP.SYRIN SQ SCH (09:36)
[2017-11-14] MEDS: FIBERSOURCE HN 1,000 ML BOTTLE GT PRN (09:44)
[2017-11-14] MEDS ORDERED: POTASSIUM CHLORIDE 20 MEQ TAB.PRT.SR PO ONE ×2 (10:30→13:00)
[2017-11-14] MEDS ORDERED: FIBERSOURCE HN 1,000 ML BOTTLE GT PRN (11:00)
--- NOTE | 2017-11-14 12:00 | NUR ---
TD/RN NOON ROUNDS PT'S AT BEDSIDE. PROVIDED PERICARE, NO CHANGE OF CONDITION. MONITORING CONTINUED.
[2017-11-14] MEDS ORDERED: LEVE100S PO (13:26)
--- NOTE | 2017-11-14 19:30 | NUR ---
NAHID/RN NOTES: RECEIVED PT. IN BED AWAKE W/ DAUGHTER AT BEDSIDE. PT OPEN EYES, NON-VERBAL, NO ACUTE RESPIRATORY DISTRESS NOTED. NO FACIAL GRIMACES OR MOANING NOTED. PT ON VENTILATOR WITH RATES SET PRESCRIBED, SATURATING @ 99%, LUNG SOUNDS CLEAR, SUCTIONED FOR AIRWAY CLEARANCE. RESPIRATIONS EVEN & UNLABORED. ON TELE WITH SR HR 72. GT FEEDING ON GOING @ 70CC/HR, NO GASTRIC RESIDUAL NOTED, FLUSHED, PATENT. IV SITE FLUSHED, PATENT AND INTACT W/ NO S/S OF INFECTION/INFILTRATION NOTED. PT IS COMFORTABLE. CL WITHIN REACHED, SAFETY MAINTAINED AND SEIZURE PRECAUTION OBSERVED.
--- NOTE | 2017-11-14 19:45 | NUR ---
TD/RN AM SHIFT END NOTES ALL NEEDS MET. NO ACUTE CHANGE OF CONDITION NOTED DURING THE SHIFT. PT ENDORSED TO PM TO CONTINUE CARE AND COMPLETE DISCHARGE PROTOCOLS. PT SCHEDULED FOR TRANSPORT PICK-UP @ 10:00PM. CL WITHIN REACHED AND SAFETY MAINTAINED.
--- NOTE | 2017-11-14 22:00 | NUR ---
NAHID/RN NOTES: REPORT CALLED IN TO ZEKE MCGRATH AT [facility] [phone].
--- NOTE | 2017-11-14 22:31 | NUR ---
NAHID/RN NOTES: [facility]. 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
--- NOTE | 2017-11-14 22:38 | NUR ---
NAHID/RN NOTES: PT. LEFT VIA STRETCHER W/ RESPIRATORY THERAPIST AND TWO STAFF W/ HER DAUGHTER IN STABLE CONDITION.
== END 2017-11-14 22:40 | DRG 53 ==
LOC: ER 23:25 → TELE-TD 11-13 04:32
PROVIDERS: ADMIT Nurse Practitioner Acute Care; ATTEND Nurse Practitioner Acute Care
PROC: 5A1945Z Respiratory Ventilation, 24-96 Consecutive Hours (ICD-10-PCS; principal; 2017-11-13)
DX: R56.9 Unspecified convulsions (principal); Z99.11 Dependence on respirator [ventilator] status; J90 Pleural effusion, not elsewhere classified; J96.11 Chronic respiratory failure with hypoxia; Z93.0 Tracheostomy status; R13.10 Dysphagia, unspecified; I69.354 Hemiplegia and hemiparesis following cerebral infarction affecting left non-dominant side; J98.11 Atelectasis; Z93.1 Gastrostomy status; Z90.11 Acquired absence of right breast and nipple; Z86.711 Personal history of pulmonary embolism; Z85.3 Personal history of malignant neoplasm of breast; E78.5 Hyperlipidemia, unspecified; I10 Essential (primary) hypertension; I25.10 Atherosclerotic heart disease of native coronary artery without angina pectoris; E03.9 Hypothyroidism, unspecified; D64.9 Anemia, unspecified; Z88.1 Allergy status to other antibiotic agents; Z88.0 Allergy status to penicillin
CPT/HCPCS: 31720; 36415; 70450-TC; 71045-TC; 80048-TC; 80061-TC; 81000-TC; 83735-TC; 84100-TC; 85025-TC; 87081-TC; 94002-TC; 94003-TC; 94760-TC; 99082-TC; A4606; J1650; J1953; J2060; J7030; Z7610

== ENCOUNTER 2019-02-12 11:20 | Inpatient (IN) | payer MEDICARE, BC ==
[2019-02-12] VITALS (19 sets, daily range): BP systolic 81–141; BP diastolic 36–96
[~2019-02-12] VITALS: Ht 157.5 cm; Wt 81.6 kg
[~2019-02-12 11:20] MED LIST changes: -AMLO10TA2 GT; +AMLO10TA7 GT; -CALC-15 GT; +FERR220S18 GT; -FERR220S2 GT; +HYDR-4384 PO; -HYDR-552 PO; -LEVE100S GT; +LEVE100S PO; -MERO1VIA3 IV; +OMEP20CA10 PO; -PANT40SU2 GT; -methylPREDNISolone SOD SUCC IV
[2019-02-12 11:54] LABS: BASOPHILS % (AUTO) 0.2 % (0.0-2.0); EOSINOPHILS % (AUTO) 0.8 % (0.0-6.0); HEMATOCRIT 40 % (33-45); HEMOGLOBIN 13.3 g/dL (11.5-14.8); LYMPHOCYTES % (AUTO) 10.4 % (20.0-44.0); MEAN CORPUSCULAR HGB CONC 33 g/dl (31.0-36.0); MEAN CORPUSCULAR VOLUME 88 fL (82-100); MONOCYTES # (AUTO) 1.1 /CMM (0.1-1.30); MONOCYTES % (AUTO) 11.3 % (2.0-12.0); NEUTROPHILS # (AUTO) 7.7 /CMM (1.8-8.9); NEUTROPHILS % (AUTO) 77.3 % (43.0-81.0); PLATELET COUNT (AUTO) 263 /CMM (150-450); RED BLOOD CELL COUNT(AUTO) 4.53 MIL/uL (4.0-5.2); WHITE BLOOD COUNT (AUTO) 9.9 K/uL (4.3-11.0)
[2019-02-12] MEDS ORDERED: CHLO473M5 MM (11:58)
[2019-02-12] MEDS ORDERED: POTA20PA34 GT (11:58)
[2019-02-12] MEDS ORDERED: SCOP1PAT17 TD (11:58)
[2019-02-12] MEDS ORDERED: ACET650S26 GT (11:58)
[2019-02-12] MEDS ORDERED: MELA5TAB GT (11:58)
[2019-02-12] MEDS ORDERED: IPRA0.2S9 IH (11:58)
[2019-02-12] MEDS ORDERED: LORA10TA7 GT (11:58)
[2019-02-12] MEDS ORDERED: FURO-145 GT (11:58)
[2019-02-12] MEDS ORDERED: CLON0.5T12 GT (11:58)
[2019-02-12] MEDS ORDERED: APIX2.5T GT (11:58)
[2019-02-12] MEDS ORDERED: ALBU2.5V38 IH (11:58)
[2019-02-12] MEDS ORDERED: LEVE100S GT (11:58)
[2019-02-12] MEDS ORDERED: MULT-24 GT (11:58)
[2019-02-12 11:59] LABS: CALCIUM, SERUM 8.2 mg/dL (8.5-10.1); CARBON DIOXIDE 26 mmol/L (21-32); CHLORIDE 94 mmol/L (98-107); CREATININE 0.6 mg/dL (0.6-1.3); GLUCOSE 194 mg/dL (74-106); SODIUM SERUM 129 mmol/L (136-145); UREA NITROGEN, BLOOD 18 mg/dL (7-18)
[2019-02-12] MEDS ORDERED: DILTIAZEM HCL 25 MG IV ONE (11:59)
[2019-02-12] MEDS ORDERED: DILTIAZEM HCL 25 MG IV IV ONE (12:00)
[2019-02-12 12:12] LABS: ALANINE AMINOTRANSFERASE 19 U/L (12-78); ALBUMIN 2.6 g/dL (3.4-5.0); ALKALINE PHOSPHATASE 90 U/L (46-116); ASPARTATE AMINOTRANSFERASE 26 U/L (15-37); B-TYPE NATRIURETIC PEPTIDE 11424 PG/ML (0-125); BILIRUBIN,DIRECT 0.2 mg/dL (0.0-0.2); BILIRUBIN,TOTAL 0.5 mg/dL (0.2-1.0); TOTAL PROTEIN, SERUM 6.7 g/dL (6.4-8.2)
[2019-02-12] MEDS ORDERED: DILTIAZEM HCL IV 125 MG in IV D5W 100 ML IV PRN (13:00)
[2019-02-12 13:33] LABS: APPEARANCE,URINE Cloudy (CLEAR); BILIRUBIN,URINE Negative (NEGATIVE); BLOOD, URINE Small Ery/uL (NEGATIVE); COLOR,URINE Yellow (YELLOW); KETONES,URINE Trace (NEGATIVE); LEUKOCYTE ESTERASE ,URINE Small (NEGATIVE); NITRITE, URINE Negative (NEGATIVE); PH,URINE 5.5 (5.0-8.0); PROTEIN,URINE 100 mg/dl (NEGATIVE); UGLUCOSE Negative (NEGATIVE)
[2019-02-12 13:44] LABS: BACTERIA,URINE Moderate /HPF (None Seen); SQUAMOUS EPITHELIAL CELL,UR Few /HPF (None Seen); WBC,URINE 80-100 /HPF (0-3)
[2019-02-12] MEDS ORDERED: ACETAMINOPHEN 650 MG/SUPP.RECT RC PRN (15:00)
[2019-02-12] MEDS ORDERED: ONDANSETRON HCL/PF 4 MG/2 ML VIAL IVP PRN (15:00)
[2019-02-12] MEDS ORDERED: AMIODARONE 900 MG in IV D5W 482 ML IV PRN (15:00)
[2019-02-12] MEDS ORDERED: AMIODARONE 150 MG in IV D5W 100 ML IV ONE (15:00)
[2019-02-12] MEDS ORDERED: ZOLPIDEM TARTRATE 5 MG TABLET PO PRN (15:00)
[2019-02-12] MEDS ORDERED: BUMETANIDE INJ 8 MG in IV NS 0.9% 48 ML IV ONE (15:30)
[2019-02-12] MEDS: SCOPOLAMINE HBR 1 EA PATCH.TD72 TD SCH (16:41)
[2019-02-12] MEDS: clonazePAM 0.5 MG TABLET GT SCH (17:00)
[2019-02-12] MEDS: PROSOURCE / PROSTAT (PYXIS) 30 ML UDC GT SCH (17:00)
[2019-02-12 17:52] LABS: ABG BASE EXCESS 2.1 mmol/L; ABG OXYGEN SATURATION 95.7 % (92.0-98.5); ABG PCO2 28.4 mmHg (35.0-45.0); ABG PH 7.537 (7.350-7.450); ABG PO2 81.5 mmHg (75.0-100.0); AaDO2 243.1 mmHg; COHb 0.1 % (0.5-1.5); MetHb 0.5 % (0.0-1.5); O2Hb 95.1 % (94.0-97.0); SITE, ABG Left Radial; VENT MODE, BG AC 12 450 50% +5
[2019-02-12] MEDS: CLINDAMYCIN 600 MG in IV NS 0.9% 50 ML IV SCH (18:37)
[2019-02-12] MEDS: APIXABAN 2.5 MG TABLET GT SCH (18:39)
[2019-02-12] MEDS: MEROPENEM 1 G in IV NS 0.9% 100 ML IV SCH (19:40)
[2019-02-12] MEDS: ALBUTEROL FS 2.5 MG/3 ML VIAL.NEB NEB SCH ×2 (19:46→23:51)
[2019-02-12] MEDS: JEVITY 1.2 CAL 1,000 ML BOTTLE GT SCH (20:11)
[2019-02-12] MEDS: LEVETIRACETAM SOL (5 ML) 100 MG/ML UDC GT SCH (20:11)
[2019-02-12] MEDS: CHLORHEXIDINE GLUCONATE 15 ML UDC MM SCH (20:11)
[2019-02-13] VITALS (40 sets, daily range): BP systolic 107–149; BP diastolic 21–86
[2019-02-13] MEDS: CLINDAMYCIN 600 MG in IV NS 0.9% 50 ML IV SCH ×2 (00:36→07:57)
[2019-02-13] MEDS: MEROPENEM 1 G in IV NS 0.9% 100 ML IV SCH ×3 (01:08→17:12)
[2019-02-13] MEDS: ALBUTEROL FS 2.5 MG/3 ML VIAL.NEB NEB SCH ×6 (03:58→23:52)
[2019-02-13 05:21] LABS: BASOPHILS # (AUTO) 0.1 /CMM (0.0-0.2); BASOPHILS % (AUTO) 0.8 % (0.0-2.0); EOSINOPHILS % (AUTO) 1.3 % (0.0-6.0); HEMATOCRIT 36 % (33-45); HEMOGLOBIN 12.3 g/dL (11.5-14.8); LYMPHOCYTES # (AUTO) 1.8 /CMM (0.8-4.8); LYMPHOCYTES % (AUTO) 23.2 % (20.0-44.0); MEAN CORPUSCULAR HGB CONC 34 g/dl (31.0-36.0); MEAN CORPUSCULAR VOLUME 86 fL (82-100); MONOCYTES # (AUTO) 1.2 /CMM (0.1-1.30); MONOCYTES % (AUTO) 15.9 % (2.0-12.0); NEUTROPHILS # (AUTO) 4.4 /CMM (1.8-8.9); NEUTROPHILS % (AUTO) 58.8 % (43.0-81.0); PLATELET COUNT (AUTO) 253 /CMM (150-450); RED BLOOD CELL COUNT(AUTO) 4.22 MIL/uL (4.0-5.2); WHITE BLOOD COUNT (AUTO) 7.6 K/uL (4.3-11.0)
[2019-02-13 05:29] LABS: ALBUMIN 2.5 g/dL (3.4-5.0); BILIRUBIN,TOTAL 0.6 mg/dL (0.2-1.0); CREATININE 0.7 mg/dL (0.6-1.3); MAGNESIUM 1.8 mg/dL (1.8-2.4); PHOSPHORUS 4.5 mg/dL (2.5-4.9); TOTAL PROTEIN, SERUM 6.5 g/dL (6.4-8.2)
[2019-02-13 05:57] LABS: POTASSIUM 2.8 mmol/L (3.5-5.1)
[2019-02-13 06:06] LABS: THYROID STIMULATING HORMONE 4.08 uIU/mL (0.358-3.74)
[2019-02-13 06:18] LABS: EOSINOPHILS % (MANUAL) 1 % (0-4); LYMPHOCYTES % (MANUAL) 26 % (16-48); MONOCYTES % (MANUAL) 11 % (0-11.0); NEUTROPHILS % (MANUAL) 62 (42-76)
[2019-02-13] MEDS: POTASSIUM CL. PREMIX PERIPHER. 50 ML IV SCH ×6 (06:34→12:37)
[2019-02-13] MEDS: CHLORHEXIDINE GLUCONATE 15 ML UDC MM SCH ×2 (08:57→20:21)
[2019-02-13] MEDS: LEVETIRACETAM SOL (5 ML) 100 MG/ML UDC GT SCH ×2 (08:57→20:21)
[2019-02-13] MEDS: AMLODIPINE BESYLATE 10 MG TABLET GT SCH (08:58)
[2019-02-13] MEDS: LORATADINE 10 MG TABLET GT SCH (08:58)
[2019-02-13] MEDS: clonazePAM 0.5 MG TABLET GT SCH ×2 (08:58→17:13)
[2019-02-13] MEDS: POTASSIUM CHLORIDE 20 MEQ POWDER PACKET GT SCH (08:58)
[2019-02-13] MEDS: LEVOTHYROXINE SODIUM 75 MCG TABLET GT SCH (08:59)
[2019-02-13] MEDS ORDERED: FUROSEMIDE 20 MG TABLET GT SCH (09:00)
[2019-02-13] MEDS: APIXABAN 2.5 MG TABLET GT SCH ×2 (09:03→17:14)
[2019-02-13] MEDS: MULTIVITAMINS,THERAGRAN 1 UDTAB TABLET GT SCH (09:04)
[2019-02-13 09:33] LABS: ABG BASE EXCESS 6.3 mmol/L; ABG OXYGEN SATURATION 98.6 % (92.0-98.5); ABG PCO2 32.9 mmHg (35.0-45.0); ABG PH 7.555 (7.350-7.450); AaDO2 154.5 mmHg; COHb 0.3 % (0.5-1.5); MetHb 0.4 % (0.0-1.5); O2Hb 97.9 % (94.0-97.0); SITE, ABG Left Brachial
[2019-02-13] MEDS: PROSOURCE / PROSTAT (PYXIS) 30 ML UDC GT SCH ×2 (10:18→17:15)
[2019-02-13] MEDS ORDERED: CLINDAMYCIN 600 MG in IV D5W 50 ML IV SCH (16:00)
[2019-02-13] MEDS ORDERED: POTASSIUM CHLORIDE 20 MEQ POWDER PACKET GT ONE ×2 (16:30→23:00)
[2019-02-13] MEDS ORDERED: METOLAZONE 2.5 MG TABLET GT ONE (16:30)
[2019-02-13] MEDS ORDERED: BUMETANIDE INJ 4 MG in IV NS 0.9% 24 ML IV ONE (17:00)
[2019-02-14] VITALS (52 sets, daily range): BP systolic 84–160; BP diastolic 51–97
[2019-02-14] MEDS: MEROPENEM 1 G in IV NS 0.9% 100 ML IV SCH ×3 (01:30→18:18)
[2019-02-14 02:56] LABS: BASOPHILS % (AUTO) 0.5 % (0.0-2.0); EOSINOPHILS % (AUTO) 2.5 % (0.0-6.0); HEMATOCRIT 37 % (33-45); HEMOGLOBIN 12.7 g/dL (11.5-14.8); LYMPHOCYTES # (AUTO) 1.3 /CMM (0.8-4.8); LYMPHOCYTES % (AUTO) 15.1 % (20.0-44.0); MEAN CORPUSCULAR HGB CONC 34 g/dl (31.0-36.0); MEAN CORPUSCULAR VOLUME 87 fL (82-100); MONOCYTES # (AUTO) 1.3 /CMM (0.1-1.30); MONOCYTES % (AUTO) 14.5 % (2.0-12.0); NEUTROPHILS # (AUTO) 5.8 /CMM (1.8-8.9); NEUTROPHILS % (AUTO) 67.4 % (43.0-81.0); PLATELET COUNT (AUTO) 277 /CMM (150-450); RED BLOOD CELL COUNT(AUTO) 4.32 MIL/uL (4.0-5.2); WHITE BLOOD COUNT (AUTO) 8.7 K/uL (4.3-11.0)
[2019-02-14] MEDS ORDERED: DILTIAZEM HCL 50 MG IV IV ONE (03:00)
[2019-02-14] MEDS ORDERED: DILTIAZEM HCL IV 125 MG in IV D5W 100 ML IV PRN (03:00)
[2019-02-14] MEDS ORDERED: DILTIAZEM HCL 25 MG IV ONE ×2 (03:03→19:35)
[2019-02-14 03:06] LABS: CALCIUM, SERUM 8.2 mg/dL (8.5-10.1); CREATININE 0.7 mg/dL (0.6-1.3); MAGNESIUM 1.7 mg/dL (1.8-2.4); PHOSPHORUS 4.4 mg/dL (2.5-4.9)
[2019-02-14 03:09] LABS: POTASSIUM 2.3 mmol/L (3.5-5.1)
[2019-02-14] MEDS: ALBUTEROL FS 2.5 MG/3 ML VIAL.NEB NEB SCH ×6 (03:30→23:30)
[2019-02-14] MEDS ORDERED: Magnesium 1GM/D5W 100ML PREMIX 100 ML IV SCH (03:30)
[2019-02-14] MEDS: POTASSIUM CL. PREMIX PERIPHER. 50 ML IV SCH ×6 (03:37→08:55)
[2019-02-14] MEDS: JEVITY 1.2 CAL 1,000 ML BOTTLE GT SCH (07:56)
[2019-02-14] MEDS: CHLORHEXIDINE GLUCONATE 15 ML UDC MM SCH ×2 (08:19→20:46)
[2019-02-14] MEDS: LEVOTHYROXINE SODIUM 75 MCG TABLET GT SCH (08:20)
[2019-02-14] MEDS: MULTIVITAMINS,THERAGRAN 1 UDTAB TABLET GT SCH (08:20)
[2019-02-14] MEDS: clonazePAM 0.5 MG TABLET GT SCH ×2 (08:20→18:16)
[2019-02-14] MEDS: LEVETIRACETAM SOL (5 ML) 100 MG/ML UDC GT SCH ×2 (08:20→20:47)
[2019-02-14] MEDS: PROSOURCE / PROSTAT (PYXIS) 30 ML UDC GT SCH ×2 (08:22→18:17)
[2019-02-14] MEDS: AMLODIPINE BESYLATE 10 MG TABLET GT SCH (08:22)
[2019-02-14] MEDS: LORATADINE 10 MG TABLET GT SCH (08:23)
[2019-02-14] MEDS: APIXABAN 2.5 MG TABLET GT SCH ×2 (08:27→18:19)
[2019-02-14 10:34] LABS: ABG BASE EXCESS 17.3 mmol/L; ABG OXYGEN SATURATION 97.5 % (92.0-98.5); ABG PCO2 42.8 mmHg (35.0-45.0); ABG PH 7.597 (7.350-7.450); ABG PO2 103.2 mmHg (75.0-100.0); AaDO2 132.8 mmHg; MetHb 0.6 % (0.0-1.5); O2Hb 96.9 % (94.0-97.0); SITE, ABG Right Radial
[2019-02-14] MEDS: Z GUARD REMEDY 2 OZ OINT TP PRN ×2 (10:35→18:16)
[2019-02-14] MEDS: POTASSIUM CHLORIDE 20 MEQ POWDER PACKET GT SCH (10:35)
[2019-02-14] MEDS: DILTIAZEM HCL IV 125 MG in IV D5W 100 ML IV PRN ×2 (12:55→20:36)
[2019-02-14] MEDS ORDERED: DILTIAZEM HCL 50 MG IV ONE (19:28)
[2019-02-14] MEDS: IPRATROPIUM NEB FS 0.5 MG/2.5 ML AMPUL.NEB IH PRN (20:09)
[2019-02-15] VITALS (55 sets, daily range): BP systolic 64–151; BP diastolic 52–89
[2019-02-15] MEDS: MEROPENEM 1 G in IV NS 0.9% 100 ML IV SCH ×3 (02:00→17:32)
[2019-02-15] MEDS ORDERED: DILTIAZEM HCL 50 MG IV ONE (02:42)
[2019-02-15] MEDS: ALBUTEROL FS 2.5 MG/3 ML VIAL.NEB NEB SCH ×6 (03:30→23:20)
[2019-02-15 04:38] LABS: BASOPHILS % (AUTO) 0.5 % (0.0-2.0); HEMATOCRIT 32 % (33-45); HEMOGLOBIN 10.8 g/dL (11.5-14.8); LYMPHOCYTES # (AUTO) 1.2 /CMM (0.8-4.8); LYMPHOCYTES % (AUTO) 21.8 % (20.0-44.0); MEAN CORPUSCULAR HGB CONC 34 g/dl (31.0-36.0); MEAN CORPUSCULAR VOLUME 90 fL (82-100); MONOCYTES # (AUTO) 0.9 /CMM (0.1-1.30); MONOCYTES % (AUTO) 16.5 % (2.0-12.0); NEUTROPHILS % (AUTO) 55.2 % (43.0-81.0); PLATELET COUNT (AUTO) 228 /CMM (150-450); RED BLOOD CELL COUNT(AUTO) 3.56 MIL/uL (4.0-5.2); WHITE BLOOD COUNT (AUTO) 5.5 K/uL (4.3-11.0)
[2019-02-15] MEDS: DILTIAZEM HCL IV 125 MG in IV D5W 100 ML IV PRN ×3 (04:41→20:10)
[2019-02-15 06:08] LABS: CALCIUM, SERUM 8.5 mg/dL (8.5-10.1); CREATININE 0.5 mg/dL (0.6-1.3); MAGNESIUM 2.1 mg/dL (1.8-2.4); PHOSPHORUS 3.1 mg/dL (2.5-4.9)
[2019-02-15 06:15] LABS: POTASSIUM 2.6 mmol/L (3.5-5.1)
[2019-02-15] MEDS: POTASSIUM CL. PREMIX PERIPHER. 50 ML IV SCH ×10 (06:51→19:17)
[2019-02-15] MEDS: APIXABAN 2.5 MG TABLET GT SCH ×2 (08:09→16:56)
[2019-02-15] MEDS: PROSOURCE / PROSTAT (PYXIS) 30 ML UDC GT SCH ×2 (08:10→16:55)
[2019-02-15] MEDS: LEVOTHYROXINE SODIUM 75 MCG TABLET GT SCH (08:10)
[2019-02-15] MEDS: MULTIVITAMINS,THERAGRAN 1 UDTAB TABLET GT SCH (08:10)
[2019-02-15] MEDS: CHLORHEXIDINE GLUCONATE 15 ML UDC MM SCH ×2 (08:10→20:43)
[2019-02-15] MEDS: AMLODIPINE BESYLATE 10 MG TABLET GT SCH (08:10)
[2019-02-15] MEDS: POTASSIUM CHLORIDE 20 MEQ POWDER PACKET GT SCH (08:10)
[2019-02-15] MEDS: clonazePAM 0.5 MG TABLET GT SCH ×2 (08:10→16:56)
[2019-02-15] MEDS: LEVETIRACETAM SOL (5 ML) 100 MG/ML UDC GT SCH ×2 (08:11→20:43)
[2019-02-15] MEDS: LORATADINE 10 MG TABLET GT SCH (08:11)
[2019-02-15] MEDS: JEVITY 1.2 CAL 1,000 ML BOTTLE GT SCH (09:10)
[2019-02-15 09:34] LABS: ABG BASE EXCESS 16.2 mmol/L; ABG OXYGEN SATURATION 96.9 % (92.0-98.5); ABG PH 7.547 (7.350-7.450); ABG PO2 93.8 mmHg (75.0-100.0); AaDO2 136.2 mmHg; COHb 0.3 % (0.5-1.5); MetHb 0.5 % (0.0-1.5); O2Hb 96.1 % (94.0-97.0); PEEP,BG 5 cm H2O; SITE, ABG Left Radial; VT, ABG 350 mL
[2019-02-15] MEDS: SCOPOLAMINE HBR 1 EA PATCH.TD72 TD SCH (14:25)
[2019-02-15] MEDS: IPRATROPIUM NEB FS 0.5 MG/2.5 ML AMPUL.NEB IH PRN (19:30)
[2019-02-16] VITALS (43 sets, daily range): BP systolic 104–147; BP diastolic 58–78
[2019-02-16] MEDS: MEROPENEM 1 G in IV NS 0.9% 100 ML IV SCH ×3 (01:48→17:08)
[2019-02-16] MEDS: ALBUTEROL FS 2.5 MG/3 ML VIAL.NEB NEB SCH ×6 (03:57→23:09)
[2019-02-16 05:08] LABS: BASOPHILS # (AUTO) 0.1 /CMM (0.0-0.2); BASOPHILS % (AUTO) 1.2 % (0.0-2.0); EOSINOPHILS % (AUTO) 4.5 % (0.0-6.0); HEMATOCRIT 36 % (33-45); HEMOGLOBIN 12.3 g/dL (11.5-14.8); LYMPHOCYTES # (AUTO) 1.3 /CMM (0.8-4.8); LYMPHOCYTES % (AUTO) 21.7 % (20.0-44.0); MEAN CORPUSCULAR HGB CONC 34 g/dl (31.0-36.0); MEAN CORPUSCULAR VOLUME 88 fL (82-100); MONOCYTES # (AUTO) 0.8 /CMM (0.1-1.30); MONOCYTES % (AUTO) 13.6 % (2.0-12.0); NEUTROPHILS # (AUTO) 3.6 /CMM (1.8-8.9); PLATELET COUNT (AUTO) 306 /CMM (150-450); RED BLOOD CELL COUNT(AUTO) 4.13 MIL/uL (4.0-5.2); WHITE BLOOD COUNT (AUTO) 6.1 K/uL (4.3-11.0)
[2019-02-16 05:20] LABS: CALCIUM, SERUM 8.5 mg/dL (8.5-10.1); CREATININE 0.4 mg/dL (0.6-1.3); PHOSPHORUS 2.9 mg/dL (2.5-4.9)
[2019-02-16] MEDS: LORATADINE 10 MG TABLET GT SCH (09:38)
[2019-02-16] MEDS: CHLORHEXIDINE GLUCONATE 15 ML UDC MM SCH ×2 (09:39→21:36)
[2019-02-16] MEDS: LEVOTHYROXINE SODIUM 75 MCG TABLET GT SCH (09:39)
[2019-02-16] MEDS: POTASSIUM CHLORIDE 20 MEQ POWDER PACKET GT SCH ×3 (09:39→11:54)
[2019-02-16] MEDS: MULTIVITAMINS,THERAGRAN 1 UDTAB TABLET GT SCH (09:39)
[2019-02-16] MEDS: clonazePAM 0.5 MG TABLET GT SCH ×2 (09:40→16:57)
[2019-02-16] MEDS: AMLODIPINE BESYLATE 10 MG TABLET GT SCH (09:41)
[2019-02-16] MEDS: APIXABAN 2.5 MG TABLET GT SCH ×2 (09:41→16:56)
[2019-02-16] MEDS: PROSOURCE / PROSTAT (PYXIS) 30 ML UDC GT SCH ×2 (09:44→16:57)
[2019-02-16] MEDS: LEVETIRACETAM SOL (5 ML) 100 MG/ML UDC GT SCH ×2 (10:23→21:35)
[2019-02-16] MEDS ORDERED: JEVITY 1.2 CAL 1,000 ML BOTTLE GT SCH (11:07)
[2019-02-16] MEDS: JEVITY 1.2 CAL 1,000 ML BOTTLE GT SCH (11:52)
[2019-02-16] MEDS: Z GUARD REMEDY 2 OZ OINT TP PRN (16:50)
[2019-02-17] VITALS (7 sets, daily range): BP systolic 115–132; BP diastolic 54–73
[2019-02-17] MEDS: MEROPENEM 1 G in IV NS 0.9% 100 ML IV SCH ×3 (01:13→18:10)
[2019-02-17] MEDS: ALBUTEROL FS 2.5 MG/3 ML VIAL.NEB NEB SCH ×6 (03:37→22:41)
[2019-02-17 06:58] LABS: BASOPHILS # (AUTO) 0.1 /CMM (0.0-0.2); BASOPHILS % (AUTO) 1.1 % (0.0-2.0); EOSINOPHILS % (AUTO) 7.4 % (0.0-6.0); HEMATOCRIT 35 % (33-45); HEMOGLOBIN 11.8 g/dL (11.5-14.8); LYMPHOCYTES # (AUTO) 1.3 /CMM (0.8-4.8); LYMPHOCYTES % (AUTO) 21.6 % (20.0-44.0); MEAN CORPUSCULAR HGB CONC 34 g/dl (31.0-36.0); MEAN CORPUSCULAR VOLUME 88 fL (82-100); MONOCYTES # (AUTO) 0.8 /CMM (0.1-1.30); MONOCYTES % (AUTO) 13.2 % (2.0-12.0); NEUTROPHILS # (AUTO) 3.3 /CMM (1.8-8.9); NEUTROPHILS % (AUTO) 56.7 % (43.0-81.0); PLATELET COUNT (AUTO) 279 /CMM (150-450); RED BLOOD CELL COUNT(AUTO) 3.95 MIL/uL (4.0-5.2); WHITE BLOOD COUNT (AUTO) 5.9 K/uL (4.3-11.0)
[2019-02-17 07:25] LABS: ALBUMIN 2.5 g/dL (3.4-5.0); BILIRUBIN,TOTAL 0.4 mg/dL (0.2-1.0); CALCIUM, SERUM 8.4 mg/dL (8.5-10.1); CREATININE 0.3 mg/dL (0.6-1.3); PHOSPHORUS 3.1 mg/dL (2.5-4.9); POTASSIUM 3.5 mmol/L (3.5-5.1); TOTAL PROTEIN, SERUM 6.4 g/dL (6.4-8.2)
[2019-02-17] MEDS: clonazePAM 0.5 MG TABLET GT SCH ×2 (08:46→17:01)
[2019-02-17] MEDS: CHLORHEXIDINE GLUCONATE 15 ML UDC MM SCH ×2 (08:46→21:10)
[2019-02-17] MEDS: MULTIVITAMINS,THERAGRAN 1 UDTAB TABLET GT SCH (08:46)
[2019-02-17] MEDS: LEVETIRACETAM SOL (5 ML) 100 MG/ML UDC GT SCH ×2 (08:46→21:09)
[2019-02-17] MEDS: AMLODIPINE BESYLATE 10 MG TABLET GT SCH (08:46)
[2019-02-17] MEDS: LORATADINE 10 MG TABLET GT SCH (08:46)
[2019-02-17] MEDS: LEVOTHYROXINE SODIUM 75 MCG TABLET GT SCH (08:47)
[2019-02-17] MEDS: APIXABAN 2.5 MG TABLET GT SCH ×2 (08:48→17:03)
[2019-02-17] MEDS: PROSOURCE / PROSTAT (PYXIS) 30 ML UDC GT SCH ×2 (09:25→17:02)
[2019-02-17 10:27] LABS: ABG BASE EXCESS 8.7 mmol/L; ABG OXYGEN SATURATION 97.3 % (92.0-98.5); ABG PCO2 49.4 mmHg (35.0-45.0); ABG PH 7.455 (7.350-7.450); ABG PO2 106.2 mmHg (75.0-100.0); AaDO2 49.7 mmHg; COHb 0.3 % (0.5-1.5); MetHb 0.5 % (0.0-1.5); O2Hb 96.5 % (94.0-97.0); SITE, ABG Left Radial
[2019-02-17] MEDS: JEVITY 1.2 CAL 1,000 ML BOTTLE GT SCH (13:36)
[2019-02-17] MEDS: DOCUSATE SODIUM LIQ 100 MG/10 ML UDC GT SCH ×2 (14:59→21:09)
[2019-02-17] MEDS ORDERED: POTASSIUM CHLORIDE 20 MEQ POWDER PACKET NG SCH (16:30)
[2019-02-17] MEDS: IPRATROPIUM NEB FS 0.5 MG/2.5 ML AMPUL.NEB IH PRN (22:40)
[2019-02-18] VITALS: BP 120/72
[2019-02-18] MEDS: MEROPENEM 1 G in IV NS 0.9% 100 ML IV SCH ×3 (02:53→17:29)
[2019-02-18] MEDS: ALBUTEROL FS 2.5 MG/3 ML VIAL.NEB NEB SCH ×5 (02:54→19:52)
[2019-02-18 04:00] VITALS: BP 119/59
[2019-02-18 06:31] LABS: BASOPHILS % (AUTO) 0.6 % (0.0-2.0); EOSINOPHILS % (AUTO) 7.6 % (0.0-6.0); HEMATOCRIT 35 % (33-45); HEMOGLOBIN 11.6 g/dL (11.5-14.8); LYMPHOCYTES % (AUTO) 19.4 % (20.0-44.0); MEAN CORPUSCULAR HGB CONC 33 g/dl (31.0-36.0); MEAN CORPUSCULAR VOLUME 88 fL (82-100); MONOCYTES # (AUTO) 0.7 /CMM (0.1-1.30); MONOCYTES % (AUTO) 13.6 % (2.0-12.0); NEUTROPHILS # (AUTO) 3.1 /CMM (1.8-8.9); NEUTROPHILS % (AUTO) 58.8 % (43.0-81.0); PLATELET COUNT (AUTO) 273 /CMM (150-450); RED BLOOD CELL COUNT(AUTO) 3.97 MIL/uL (4.0-5.2); WHITE BLOOD COUNT (AUTO) 5.3 K/uL (4.3-11.0)
[2019-02-18 06:56] LABS: CALCIUM, SERUM 8.2 mg/dL (8.5-10.1); CREATININE 0.3 mg/dL (0.6-1.3); MAGNESIUM 2.2 mg/dL (1.8-2.4); PHOSPHORUS 3.1 mg/dL (2.5-4.9); POTASSIUM 3.9 mmol/L (3.5-5.1)
[2019-02-18 08:00] VITALS: BP 126/71
[2019-02-18] MEDS: MULTIVITAMINS,THERAGRAN 1 UDTAB TABLET GT SCH (10:43)
[2019-02-18] MEDS: AMLODIPINE BESYLATE 10 MG TABLET GT SCH (10:44)
[2019-02-18] MEDS: clonazePAM 0.5 MG TABLET GT SCH ×2 (10:45→16:12)
[2019-02-18] MEDS: PROSOURCE / PROSTAT (PYXIS) 30 ML UDC GT SCH ×2 (10:45→16:12)
[2019-02-18] MEDS: LORATADINE 10 MG TABLET GT SCH (10:45)
[2019-02-18] MEDS: LEVETIRACETAM SOL (5 ML) 100 MG/ML UDC GT SCH ×2 (10:45→21:08)
[2019-02-18] MEDS: DOCUSATE SODIUM LIQ 100 MG/10 ML UDC GT SCH ×2 (10:45→16:12)
[2019-02-18] MEDS: CHLORHEXIDINE GLUCONATE 15 ML UDC MM SCH ×2 (10:46→21:09)
[2019-02-18] MEDS: LEVOTHYROXINE SODIUM 75 MCG TABLET GT SCH (10:47)
[2019-02-18] MEDS: APIXABAN 2.5 MG TABLET GT SCH ×2 (10:48→18:40)
[2019-02-18 12:00] VITALS: BP 120/63
[2019-02-18 16:00] VITALS: BP 127/60
[2019-02-18] MEDS: SCOPOLAMINE HBR 1 EA PATCH.TD72 TD SCH (16:12)
[2019-02-18] MEDS ORDERED: NA PHOS,M-B/NA PHOS,DI-BA 1 EA ENEMA RC PRN (19:30)
== END 2019-02-18 21:25 | DRG 308 ==
LOC: ER 11:29 → ICU 13:11 → TELE-TD 02-16 21:18 → TELE1 02-18 18:00
PROVIDERS: ADMIT Nurse Practitioner Acute Care; ATTEND Nurse Practitioner Acute Care
PROC: 5A1955Z Respiratory Ventilation, Greater than 96 Consecutive Hours (ICD-10-PCS; principal; 2019-02-12)
PROC: 05H633Z Insertion of Infusion Device into Left Subclavian Vein, Percutaneous Approach (ICD-10-PCS; 2019-02-12)
DX: I48.91 Unspecified atrial fibrillation (principal); I50.23 Acute on chronic systolic (congestive) heart failure; Z99.11 Dependence on respirator [ventilator] status; G93.40 Encephalopathy, unspecified; J96.10 Chronic respiratory failure, unspecified whether with hypoxia or hypercapnia; D68.59 Other primary thrombophilia; N39.0 Urinary tract infection, site not specified; R40.3 Persistent vegetative state; Z93.0 Tracheostomy status; E87.6 Hypokalemia; Z93.1 Gastrostomy status; E78.5 Hyperlipidemia, unspecified; E03.9 Hypothyroidism, unspecified; I11.0 Hypertensive heart disease with heart failure; I25.10 Atherosclerotic heart disease of native coronary artery without angina pectoris; R47.02 Dysphasia; Z85.3 Personal history of malignant neoplasm of breast; Z86.711 Personal history of pulmonary embolism; Z86.73 Personal history of transient ischemic attack (TIA), and cerebral infarction without residual deficits; Z90.11 Acquired absence of right breast and nipple; E88.09 Other disorders of plasma-protein metabolism, not elsewhere classified; B96.20 Unspecified Escherichia coli [E. coli] as the cause of diseases classified elsewhere; Z16.12 Extended spectrum beta lactamase (ESBL) resistance; R93.5 Abnormal findings on diagnostic imaging of other abdominal regions, including retroperitoneum
CPT/HCPCS: 31720; 36415; 36569; 36600; 71045-TC; 80048-TC; 80053-TC; 80061-TC; 80076-TC; 81000-TC; 82040-TC; 82803-TC; 82962-TC; 83540-TC; 83735-TC; 83880; 84100-TC; 84132-TC; 84443-TC; 84484-TC; 85025-TC; 85730-TC; 87081-TC; 87086-TC; 87186-TC; 93307-TC; 93970-TC; 94002-TC; 94003-TC; 94760-TC; 94761-TC; 99082-TC; A4216; A6402; A7526; G0378; J0282; J1953; J2185; J3475; J3480; J3490; J7030; J7050; J7060

== ENCOUNTER 2022-07-26 09:20 | Inpatient (IN) | payer MEDICARE, OTHER ==
[~2022-07-26] VITALS: Ht 157.5 cm; Wt 82.2 kg
[~2022-07-26 09:20] MED LIST changes: +ACET650S26 GT; +AMLO-213 GT; -AMLO10TA7 GT; +APIX2.5T GT; +CHLO473M5 MM; +CLON0.5T4 GT; -FERR220S18 GT; +FERR220S2 GT; +FURO-145 GT; -HEPA50008 SQ; -HYDR-4384 PO; +IPRA0.2S9 IH; +LEVE100S GT; -LEVE100S PO; +LORA10TA7 GT; -MAGN400O6 GT; +MELA5TAB GT; -METO50TA16 GT; +MULT-24 GT; -NA P133E RC; -OMEP20CA10 PO; +POLY15DR31 EACHEYE; -POLY15DR57 EACHEYE; +POTA20PA3 GT; -SCOP1PAT TD; +SCOP1PAT17 TD
--- NOTE | 2022-07-26 09:20 | NUR ---
Received pt 67 yrs female transfered by [facility] with tach c/o bleeding from trach since 830 in am tody pt unresponsiive
--- NOTE | 2022-07-26 09:25 | NUR ---
VENT SITTING TV 450 AC14 PEEP 5 FIO2 40%
--- NOTE | 2022-07-26 09:42 | NUR ---
COVID TEST COLLECTED AND SENT
[2022-07-26 09:47] LABS: BASOPHILS # (AUTO) 0.1 K/uL (0.0-0.2); BASOPHILS % (AUTO) 0.7 % (0.0-2.0); EOSINOPHILS % (AUTO) 3.5 % (0.0-6.0); HEMATOCRIT 36 % (33-45); HEMOGLOBIN 11.7 g/dL (11.5-14.8); LYMPHOCYTES # (AUTO) 2.2 K/uL (0.8-4.8); LYMPHOCYTES % (AUTO) 21.6 % (20.0-44.0); MEAN CORPUSCULAR HGB CONC 33 g/dl (31.0-36.0); MEAN CORPUSCULAR VOLUME 86 fL (82-100); MONOCYTES % (AUTO) 9.7 % (2.0-12.0); NEUTROPHILS # (AUTO) 6.5 K/uL (1.8-8.9); NEUTROPHILS % (AUTO) 64.5 % (43.0-81.0); PLATELET COUNT (AUTO) 306 K/uL (150-450); RED BLOOD CELL COUNT(AUTO) 4.15 MIL/uL (4.0-5.2); WHITE BLOOD COUNT (AUTO) 10.2 K/uL (4.3-11.0)
--- NOTE | 2022-07-26 09:59 | NUR ---
IV ESTABLIHSED R HAND 20G, ADDITIONAL IV ESTABLISHED R UPPER ARM 18G. LABS DRAWN AND COLLECTED AT BEDSIDE.
--- NOTE | 2022-07-26 10:01 | NUR ---
RT NOTE PT BROUGHT IN TO ED FOR BLEEDING TRACH. PT PLACED ON [facility] VENT ON GIVEN SETTINGS FROM FACILITY AC 14 450 +5 40%. TRACH SUCTIONED WITH MODERATED RED SECRETIONS. AIRWAY IS PATENT AND SECURE. AMBU BAG IS AT BEDSIDE. VENT IS PLUGGED INTO RED OUTLET WITH ALARMS ON AND AUDIBLE. Addendum: 07/26/22 at 1005 by BINU MACIAS RT Amended: Links added.
[2022-07-26] MEDS ORDERED: ONDA4TAB5 GT (10:13)
[2022-07-26] MEDS ORDERED: FOLI0.8C GT (10:13)
[2022-07-26] MEDS ORDERED: CARV12.5 GT (10:13)
[2022-07-26] MEDS ORDERED: ASCO500C17 GT (10:13)
[2022-07-26] MEDS ORDERED: CRAN400C GT (10:13)
[2022-07-26] MEDS ORDERED: NUT.237L30 GT (10:13)
[2022-07-26] MEDS ORDERED: NALO1DIS2 IJ (10:13)
[2022-07-26] MEDS ORDERED: ATOR20TA GT (10:13)
[2022-07-26] MEDS ORDERED: LORA-259 GT (10:13)
[2022-07-26] MEDS ORDERED: ASPI-1169 GT (10:13)
--- NOTE | 2022-07-26 10:14 | NUR ---
X-RAY DONE AT BED SIDE
--- NOTE | 2022-07-26 10:15 | NUR ---
bleeding stop no active bleeding at this time
[2022-07-26 10:21] LABS: ALANINE AMINOTRANSFERASE 20 U/L (12-78); ALBUMIN 3.3 g/dL (3.4-5.0); ALKALINE PHOSPHATASE 118 U/L (46-116); ASPARTATE AMINOTRANSFERASE 16 U/L (15-37); BILIRUBIN,DIRECT 0.1 mg/dL (0.0-0.2); BILIRUBIN,TOTAL 0.3 mg/dL (0.2-1.0); CALCIUM, SERUM 9.1 mg/dL (8.5-10.1); CARBON DIOXIDE 32 mmol/L (21-32); CHLORIDE 101 mmol/L (98-107); CREATININE 0.5 mg/dL (0.6-1.3); GLUCOSE 175 mg/dL (74-106); POTASSIUM 3.6 mmol/L (3.5-5.1); SODIUM SERUM 141 mmol/L (136-145); TOTAL PROTEIN, SERUM 8.4 g/dL (6.4-8.2); UREA NITROGEN, BLOOD 14 mg/dL (7-18)
--- NOTE | 2022-07-26 10:44 | NUR ---
CALLED [facility] [phone] PER CHARGE DOUG NEED TO CONTACT VERO [phone] LEFT .
[2022-07-26] MEDS ORDERED: CT SWABBABLE VALVE TRANS SET 1 EA INFUS.SET MC ONE (10:48)
[2022-07-26] MEDS ORDERED: IV NS 0.9% 250 ML IV ONE (10:48)
[2022-07-26] MEDS ORDERED: IOHEXOL-350 100 ML VIAL IV ONE (10:48)
--- NOTE | 2022-07-26 11:00 | NUR ---
CALLED ENT DR. NUÑEZ [phone] [facility] [address] SPICER.
--- NOTE | 2022-07-26 11:20 | NUR ---
T CTA VIA GARNY STABLE VS AND CONDITION
--- NOTE | 2022-07-26 11:40 | NUR ---
Bact from CTA done tolorated procedur no active bleeding from trach
--- NOTE | 2022-07-26 12:46 | NUR ---
NERIS GLEASON AND ELENA
--- NOTE | 2022-07-26 13:30 | NUR ---
NO ACTIIVE BLEEDING from track
--- NOTE | 2022-07-26 13:39 | NUR ---
BED 313-1
--- NOTE | 2022-07-26 14:32 | NUR ---
REPORT GIVEN TO ROSA ALANIS FOR EDWARD
--- NOTE | 2022-07-26 15:00 | NUR ---
RN NOTES RECEIVED PATIENT FROM ER AT 1500. PATIENT IS NONVERBAL. VENT PATIENT. OVERALL SKIN INTACT. LUARM DISCOLORATION NOTED. OVERALL OTHER SKIN INTACT. NO PAIN NOTED. NO DISTRESS NOTED. GOT PATIENT VACCINATION RECORD FROM DAUGHTER. ALL NEEDS ATTENDED. BELONGING CHECKS DONE. ON GTUBE. NO FEEDING NOTED. WILL CONTINUE TO MONITOR. ALL SAFETY MEASURES IN PLACE. BD LOCKED IN THE LOWEST POSITION. CALL LIGHT AND TABLE IN EASY REACH. SIDE RAILS UP TIMES 2. HOB ELEVATED FOR ASPIRATION PRECAUTION. WILL CONTINUE TO MONITOR.
[2022-07-26] MEDS ORDERED: MAG HYDROX/AL HYDROX/SIMETH 30 ML UDC PO PRN (16:30)
[2022-07-26] MEDS ORDERED: ACETAMINOPHEN 325 MG TABLET PO PRN ×2 (16:30→19:00)
[2022-07-26] MEDS ORDERED: ONDANSETRON HCL/PF 4 MG/2 ML VIAL IVP PRN (16:30)
[2022-07-26] MEDS ORDERED: MAGNESIUM HYDROXIDE 30 ML UDC PO PRN (16:30)
[2022-07-26] MEDS ORDERED: Z GUARD REMEDY 4 OZ OINT TP PRN (16:30)
[2022-07-26] MEDS ORDERED: ALBUTEROL FS 2.5 MG/3 ML VIAL.NEB IH PRN (19:00)
[2022-07-26] MEDS ORDERED: LORAZEPAM 1 MG TABLET GT PRN (19:00)
[2022-07-26] MEDS ORDERED: IPRATROPIUM NEB FS 0.5 MG/2.5 ML AMPUL.NEB IH PRN ×2 (19:00)
[2022-07-26] MEDS ORDERED: ONDANSETRON 4 MG TAB.RAPDIS GT PRN (19:30)
[2022-07-26] MEDS ORDERED: NALOXONE HCL 0.4 MG/ML AMPUL IV PRN (19:30)
--- NOTE | 2022-07-26 19:30 | NUR ---
RN NOTES . PATIENT IS NONVERBAL. VENT PATIENT. OVERALL SKIN INTACT. LUARM DISCOLORATION NOTED. OVERALL OTHER SKIN INTACT. NO PAIN NOTED. NO DISTRESS NOTED. ALL NEEDS ATTENDED. BELONGING CHECKS DONE. ON GTUBE. NO FEEDING NOTED. IV ACCESS ON THE RUARM G20 INTACT. CONSENT FOR MEDICAL RECORDS SIGNED BY TELEPHONE CONSENT OF THE DAUGHTER STEFANIA. ME AND JOVEN WITNESSED.WILL CONTINUE TO MONITOR. ALL SAFETY MEASURES IN PLACE. BD LOCKED IN THE LOWEST POSITION. CALL LIGHT AND TABLE IN EASY REACH. SIDE RAILS UP TIMES 2. HOB ELEVATED FOR ASPIRATION PRECAUTION. WILL ENDORSE FOR EDWARD.
--- NOTE | 2022-07-26 19:40 | NUR ---
securities lending trader Opening Note Received patient in bed; awake and nonverbal. On mechanical ventilator with current settings: PEEP 5, AC 14, VT 450, FiO2 40%. Breathing even and nonlabored. Not in any form of respiratory distress. No s/s of pain or discomfort noted at this time. On telemetry monitoring with current reading of sinus rhythm with BBB, HR-65 bpm. With IV access on right hand 20g and right antecubital 18g; both are intact, patent and saline locked. With g-tube in place; clean, dry, patent and intact. Needs anticipated. Turned and repositioning done per hospital protocol. Safety and aspiration precautions implemented: head of bed elevated, call light and table within reach, side rails up x 3, bed in lowest locked position. Will continue plan of care.
[2022-07-26 20:00] VITALS: BP_SYST 133; BP_SYST 98; BP_DIAS 37; BP_DIAS 76
[2022-07-26] MEDS: ALBUTEROL FS 2.5 MG/3 ML VIAL.NEB IH SCH (20:17)
--- NOTE | 2022-07-26 20:44 | NUR ---
RT - SPUTUM SAMPLE COLLECTED, PLACED IN FRIDGE FOR LAB
[2022-07-26] MEDS: LEVETIRACETAM SOL (5 ML) 100 MG/ML UDC GT SCH (22:23)
[2022-07-26] MEDS: ATORVASTATIN 10 MG TABLET GT SCH (22:23)
[2022-07-26] MEDS: DOCUSATE SODIUM 100 MG CAPSULE PO SCH (22:23)
[2022-07-26] MEDS: CHLORHEXIDINE GLUCONATE 15 ML UDC MM SCH (22:25)
[2022-07-27] VITALS: BP 131/42
[2022-07-27] MEDS: ALBUTEROL FS 2.5 MG/3 ML VIAL.NEB IH SCH ×4 (02:13→20:18)
[2022-07-27 04:00] VITALS: BP 123/49
--- NOTE | 2022-07-27 06:55 | NUR ---
certified juvenile probation officer Closing Note Patient in bed; awake, nonverbal. On mechanical ventilator with current settings: PEEP 5, AC 14, VT 450, FiO2 40%. Breathing even and nonlabored. In no apparent distress. No s/s of pain or discomfort noted at this time. On telemetry monitoring with current reading of sinus rhythm with BBB, HR-68 bpm. With IV access on right hand 20g and right antecubital 18g; both are intact, patent and saline locked. With g-tube in place; clean, dry, patent and intact. All needs attended to. Turned and repositioning done. Safety and aspiration precautions maintained: head of bed elevated, call light and table within reach, side rails up x 3, bed in lowest locked position. Endorsed to morning shift for marjorie.
[2022-07-27 07:21] LABS: BASOPHILS # (AUTO) 0.1 K/uL (0.0-0.2); HEMOGLOBIN 10.6 g/dL (11.5-14.8); MONOCYTES # (AUTO) 1.2 K/uL (0.1-1.30)
--- NOTE | 2022-07-27 07:25 | NUR ---
RN OPENING NOTE RECEIVED PATIENT LAYING IN BED, ASLEEP. PATIENT NON-VERBAL. ON TRACH TO VENT WITH CURRENT SETTINGS TOLERATING WELL. NO SOB NOTED, BREATHING EVEN AND UNLABORED. NOTED WITH IV ACCESS ON RIGHT HAND #20G AND RIGHT AC #18 G SALINE LOCKED. ALSO NOTED WITH G-TUBE. PATIENT CURRENTLY ON NPO. SAFETY MEASURE IN PLACE. BED IN LOWEST AND LOCKED POSITION, SIDE RAILS UP X3, CALL LIGHT PLACED WITHIN EASY REACH. WILL CONTINUE TO MONITOR PATIENT.
[2022-07-27 07:28] LABS: BASOPHILS % (AUTO) 0.7 % (0.0-2.0); EOSINOPHILS % (AUTO) 2.5 % (0.0-6.0); HEMATOCRIT 32 % (33-45); LYMPHOCYTES # (AUTO) 1.3 K/uL (0.8-4.8); LYMPHOCYTES % (AUTO) 13.7 % (20.0-44.0); MEAN CORPUSCULAR HGB CONC 33 g/dl (31.0-36.0); MEAN CORPUSCULAR VOLUME 87 fL (82-100); MONOCYTES % (AUTO) 12.9 % (2.0-12.0); NEUTROPHILS # (AUTO) 6.5 K/uL (1.8-8.9); NEUTROPHILS % (AUTO) 70.2 % (43.0-81.0); PLATELET COUNT (AUTO) 253 K/uL (150-450); RED BLOOD CELL COUNT(AUTO) 3.74 MIL/uL (4.0-5.2); WHITE BLOOD COUNT (AUTO) 9.3 K/uL (4.3-11.0)
[2022-07-27] MEDS: LEVOTHYROXINE SODIUM 100 MCG TABLET GT SCH ×2 (07:30→09:35)
[2022-07-27 07:37] LABS: THYROID STIMULATING HORMONE 3.597 uIU/mL (0.358-3.74)
[2022-07-27 07:52] LABS: CALCIUM, SERUM 8.7 mg/dL (8.5-10.1); CREATININE 0.4 mg/dL (0.6-1.3); MAGNESIUM 2.5 mg/dL (1.8-2.4); PHOSPHORUS 3.2 mg/dL (2.5-4.9); POTASSIUM 3.2 mmol/L (3.5-5.1)
[2022-07-27 08:00] VITALS: BP 156/75
[2022-07-27] MEDS: LEVETIRACETAM SOL (5 ML) 100 MG/ML UDC GT SCH ×3 (09:00→21:36)
[2022-07-27] MEDS ORDERED: Medication Not On Formulary EA (Cranberry 400 MG) GT SCH (09:00)
[2022-07-27] MEDS: CARVEDILOL 12.5 MG TABLET GT SCH ×3 (09:00→17:00)
[2022-07-27] MEDS: ACETAMINOPHEN 650 MG/20.3 ML UDC GT SCH ×3 (09:00→17:00)
[2022-07-27] MEDS: FUROSEMIDE 20 MG TABLET GT SCH ×2 (09:00→09:35)
[2022-07-27] MEDS: FOLIC ACID 1 MG TABLET GT SCH ×2 (09:00→09:35)
[2022-07-27] MEDS: ASCORBIC ACID 500 MG TABLET GT SCH ×2 (09:00→09:35)
[2022-07-27] MEDS: PANTOPRAZOLE 40 MG VIAL IV SCH (09:35)
[2022-07-27] MEDS: CHLORHEXIDINE GLUCONATE 15 ML UDC MM SCH ×2 (09:35→21:36)
[2022-07-27] MEDS ORDERED: DEXTROSE 50%-WATER 50 ML DISP.SYRIN IV PRN (10:00)
[2022-07-27 10:27] LABS: THYROID STIMULATING HORMONE 3.445 uIU/mL (0.358-3.74)
[2022-07-27] MEDS: POTASSIUM CL. PREMIX PERIPHER. 50 ML IV SCH ×4 (11:15→15:27)
[2022-07-27] MEDS: BLOOD SUGAR DIAGNOSTIC 1 EACH STRIP IN SCH ×3 (13:24→23:34)
[2022-07-27] MEDS: INSULIN REGULAR, HUMAN 100 UNIT/ML 3 ML VIAL SQ PRN ×3 (13:25→23:45)
[2022-07-27] MEDS ORDERED: MORPHINE SULFATE INJ 2 MG/ML DISP.SYRIN IV ONE (13:30)
--- NOTE | 2022-07-27 15:30 | NUR ---
RN NOTE REGISTERED CLIENT ASSOCIATE DAVIE GOOD SEEN PATIENT, G-TUBE REPOSITIONED. NOTED WITH MINIMAL BLEEDING. WILL WAIT FOR CT ABDOMEN AND PELVIS FOR PLACEMENT. PATIENT'S AT BEDSIDE.
--- NOTE | 2022-07-27 15:35 | NUR ---
RN NOTE PATIENT PICKED UP FOR CT SCAN OF ABDOMEN AND PELVIS.
--- NOTE | 2022-07-27 15:55 | NUR ---
RN NOTE PATIENT BACK FROM CT SCAN, IN STABLE CONDITION.
[2022-07-27] MEDS ORDERED: IOHEXOL-300 100 ML VIAL IV ONE (15:58)
[2022-07-27] MEDS ORDERED: CT SWABBABLE VALVE TRANS SET 1 EA INFUS.SET MC ONE (15:58)
[2022-07-27] MEDS ORDERED: IV NS 0.9% 250 ML IV ONE (15:58)
[2022-07-27 16:00] VITALS: BP 154/58
[2022-07-27] MEDS ORDERED: GLUCERNA 1.2 1,000 ML BOTTLE GT PRN ×2 (18:30→19:00)
--- NOTE | 2022-07-27 18:30 | NUR ---
RN CLOSING NOTE PATIENT LAYING IN BED, ASLEEP. PATIENT NON-VERBAL. ON TRACH TO VENT WITH CURRENT SETTINGS TOLERATING WELL. NO SOB NOTED, BREATHING EVEN AND UNLABORED. NEW IV ACCESS MIDLINE ON LEFT UPPER ARM #18 G, INTACT AND PATENT, SALINE LOCKED. WITH G-TUBE INTACT. SAFETY MEASURE MAINTAINED. BED IN LOWEST AND LOCKED POSITION, SIDE RAILS UP X3, CALL LIGHT PLACED WITHIN EASY REACH. WILL ENDORSE TO NEXT SHIFT FOR EDWARD.
--- NOTE | 2022-07-27 18:52 | NUR ---
RN NOTE RECEIVED NEW ORDER FROM JORDY CRABTREE NP TO RESUME GTUBE FEEDING AND MEDS FROM SNF. ORDER CARRIED OUT.
--- NOTE | 2022-07-27 19:30 | NUR ---
RN OPENING NOTES RECEIVED PATIENT IN BED, WITH EYES CLOSE, NON VERBAL BUT EASY TO AROUSE. AFEBRILE AND NOT IN ANY FORM OF ACUTE DISTRESS. NO SOB/WHEEZING NOTED. ON TRACH TO VENT WITH CURRENT SETTINGS, TOLERATING WELL. WITH INTACT G-TUBE, NO RESIDUAL NOTED. WITH IV ACCESS ON R HAND 20G AND R ANTECUBITAL 18G SL. SAFETY MEASURES IN PLACE. KEPT BED IN LOCKED AND IN LOWEST POSITION. SIDE RAILS UP X2. CALL LIGHT WITHIN EASY REACH.
[2022-07-27 20:00] VITALS: BP 118/46
[2022-07-27] MEDS: DOCUSATE SODIUM 100 MG CAPSULE PO SCH (21:36)
[2022-07-27] MEDS: ATORVASTATIN 10 MG TABLET GT SCH (21:36)
[2022-07-28] VITALS: BP 120/58
--- NOTE | 2022-07-28 01:33 | NUR ---
RT PT RECVD STABLE ON CURRENT AC VENT SETTINGS AND LIGIA WELL. TRACH IS PATENT, MIDLINE AND SECURED. SUCTION DONE Q2/PRN, NEB TX GIVEN AND LIGIA WELL. TRACH CARE DONE. SPO2 >92%. NO SOB OR RESPIRATORY DISTRESS NOTED. VENT IS PLUGGED INTO RED OUTLET WITH ALARMS ON AND AUDIBLE. SPARE TRACH AND AMBU BAG AT BEDSIDE.
[2022-07-28] MEDS: ALBUTEROL FS 2.5 MG/3 ML VIAL.NEB IH SCH ×4 (02:21→20:05)
[2022-07-28 04:00] VITALS: BP 124/62
[2022-07-28] MEDS: BLOOD SUGAR DIAGNOSTIC 1 EACH STRIP IN SCH ×4 (05:14→23:19)
--- NOTE | 2022-07-28 06:40 | NUR ---
RN NOTE TRIED TO CALL FAMILY MEMBER TO OBTAIN VERBAL CONSENT FOR MRI OF PELVIS WITH AND WITHOUT CONSENT BUT UNABLE TO GET HOLD. ENDORSED TO INCOMING SHIFT FOR FOLLOW UP CALL.
--- NOTE | 2022-07-28 07:03 | NUR ---
RN CLOSING NOTES PATIENT IN BED, WITH EYES CLOSE, NON VERBAL BUT EASY TO AROUSE AND RESPONDS TO VERBAL AND TACTILE STIMULI. AFEBRILE AND NOT IN ANY FORM OF ACUTE DISTRESS. NO SOB/WHEEZING NOTED. ON TRACH TO VENT WITH CURRENT SETTINGS, TOLERATING WELL. WITH INTACT G-TUBE, NO RESIDUAL NOTED AND WITH FEEDING OF GLUCERNA 1.2 RUNNING AT 55ML/HR. WITH IV ACCESS ON R HAND 20G AND R ANTECUBITAL 18G SL. MONITORED FOR ANY S/SX. OF HYPO/HYPERGLYCEMIA. MEDICATED ORDERED. TURNED AND REPOSITIONED EVERY 2 HOURS AND TOLERATED TO PROMOTE PROPER CIRCULATION AND COMFORT. SAFETY MEASURES IN PLACE. KEPT BED IN LOCKED AND IN LOWEST POSITION. SIDE RAILS UP X2. CALL LIGHT WITHIN EASY REACH. ALL NURSING NEEDS ATTENDED. ENDORSED TO INCOMING NURSE FOR CONTINUITY OF CARE.
[2022-07-28 07:35] LABS: BASOPHILS # (AUTO) 0.1 K/uL (0.0-0.2); BASOPHILS % (AUTO) 0.6 % (0.0-2.0); EOSINOPHILS % (AUTO) 2.3 % (0.0-6.0); HEMATOCRIT 29 % (33-45); HEMOGLOBIN 9.6 g/dL (11.5-14.8); LYMPHOCYTES # (AUTO) 1.5 K/uL (0.8-4.8); LYMPHOCYTES % (AUTO) 12.1 % (20.0-44.0); MEAN CORPUSCULAR HGB CONC 33 g/dl (31.0-36.0); MEAN CORPUSCULAR VOLUME 87 fL (82-100); MONOCYTES # (AUTO) 1.1 K/uL (0.1-1.30); MONOCYTES % (AUTO) 9.3 % (2.0-12.0); NEUTROPHILS # (AUTO) 9.1 K/uL (1.8-8.9); NEUTROPHILS % (AUTO) 75.7 % (43.0-81.0); PLATELET COUNT (AUTO) 244 K/uL (150-450); RED BLOOD CELL COUNT(AUTO) 3.38 MIL/uL (4.0-5.2); WHITE BLOOD COUNT (AUTO) 12.1 K/uL (4.3-11.0)
[2022-07-28 07:46] LABS: ALBUMIN 2.8 g/dL (3.4-5.0); BILIRUBIN,TOTAL 0.4 mg/dL (0.2-1.0); CALCIUM, SERUM 8.6 mg/dL (8.5-10.1); CREATININE 0.5 mg/dL (0.6-1.3); MAGNESIUM 2.4 mg/dL (1.8-2.4); PHOSPHORUS 3.3 mg/dL (2.5-4.9); POTASSIUM 3.5 mmol/L (3.5-5.1); TOTAL PROTEIN, SERUM 7.3 g/dL (6.4-8.2)
[2022-07-28 08:00] VITALS: BP 136/51
[2022-07-28] MEDS: CHLORHEXIDINE GLUCONATE 15 ML UDC MM SCH ×2 (09:26→22:35)
[2022-07-28] MEDS: ACETAMINOPHEN 650 MG/20.3 ML UDC GT SCH ×2 (09:26→16:34)
[2022-07-28] MEDS: LEVETIRACETAM SOL (5 ML) 100 MG/ML UDC GT SCH ×2 (09:26→22:34)
[2022-07-28] MEDS: FUROSEMIDE 20 MG TABLET GT SCH (09:27)
[2022-07-28] MEDS: LEVOTHYROXINE SODIUM 100 MCG TABLET GT SCH (09:27)
[2022-07-28] MEDS: ASCORBIC ACID 500 MG TABLET GT SCH (09:27)
[2022-07-28] MEDS: CARVEDILOL 12.5 MG TABLET GT SCH ×2 (09:27→16:34)
[2022-07-28] MEDS: FOLIC ACID 1 MG TABLET GT SCH (09:27)
[2022-07-28] MEDS: PANTOPRAZOLE 40 MG VIAL IV SCH (09:27)
--- NOTE | 2022-07-28 09:59 | NUR ---
RN OPENING NOTES RECEIVED PATIENT IN BED, WITH EYES CLOSE, NON VERBAL BUT EASY TO AROUSE. AFEBRILE AND NOT IN ANY FORM OF ACUTE DISTRESS. NO SOB/WHEEZING NOTED. ON TRACH TO VENT WITH CURRENT SETTINGS, TOLERATING WELL. WITH INTACT G-TUBE, NO RESIDUAL NOTED, PATENT AND INTACT WITH GLUCERNA @55ML/HR RUNNING, TOLERATING WELL, NO N/V/D NOTED. WITH IV ACCESS ON R HAND 20G AND R ANTECUBITAL 18G SL, PATENT AND INTACT, FLUSHES WELL. SAFETY MEASURES IN PLACE. KEPT BED IN LOCKED AND IN LOWEST POSITION. SIDE RAILS UP X2. CALL LIGHT WITHIN EASY REACH.WILL CONTINUE PLAN OF CARE.
--- NOTE | 2022-07-28 10:00 | NUR ---
RN NOTES CONSENT CALLED DAUGHTER MALCOLM TO GET A TELEPHONE CONSENT FOR MRI WITH AND WITHOUT CONTRAST, DAUGHTER AGREED.
[2022-07-28 12:06] LABS: IMMUNOGLOBULIN A, SERUM 441 mg/dL (87-352); IMMUNOGLOBULIN G, SERUM 1274 mg/dL (586-1602); IMMUNOGLOBULIN M, SERUM 112 mg/dL (26-217)
--- NOTE | 2022-07-28 12:31 | NUR ---
RN NOTES CALLED LAB FOR FOLLOW UP [facility], PER ALYCIA THEY WILL RUN IT TODAY, WILL FOLLOW UP. MRI PERSONNEL STATED THEY CAN'T DO THE MRI HERE DUE TO PATIENT IS ON TRACH. DAUGHTER AT THE BEDSIDE, SUGGESTED TO BRING PATIENT TO [facility] FOR MRI, INFORMED LEYDA COOL, PER LEYDA COOL DISCUSS IT WITH DR. DIEZ. INFORMED DR. DIEZ AWAITING FOR RESPOND. WILL CONTINUE PLAN OF CARE.
[2022-07-28] MEDS: INSULIN REGULAR, HUMAN 100 UNIT/ML 3 ML VIAL SQ PRN (12:49)
[2022-07-28 12:54] LABS: BILIRUBIN,URINE NEGATIVE (NEGATIVE); COLOR,URINE YELLOW (YELLOW); LEUKOCYTE ESTERASE ,URINE NEGATIVE (NEGATIVE); NITRITE, URINE NEGATIVE (NEGATIVE); PH,URINE 7.5 (5.0-8.0); PROTEIN,URINE TRACE mg/dl (NEGATIVE); UGLUCOSE NEGATIVE (NEGATIVE); UROBILINOGEN,URINE 0.2 EU/dL (0.2)
[2022-07-28 13:00] LABS: BACTERIA,URINE Rare /HPF (None Seen); RBC,URINE 0-2 /HPF (0-2); SQUAMOUS EPITHELIAL CELL,UR Few /HPF (None Seen); WBC,URINE 0-2 /HPF (0-3)
--- NOTE | 2022-07-28 16:35 | NUR ---
RN NOTES HELD CARVEDILOL DUE TO PULSE=53, WILL CONTINUE PLAN OF CARE.
[2022-07-28] MEDS: SOD FERRIC GLUC 125 MG in IV NS 0.9% 100 ML IV SCH (17:23)
--- NOTE | 2022-07-28 18:43 | NUR ---
RN CLOSING NOTES PATIENT IN BED, WITH EYES CLOSE, NON VERBAL BUT EASY TO AROUSE AND RESPONDS TO VERBAL AND TACTILE STIMULI. AFEBRILE AND NOT IN ANY FORM OF ACUTE DISTRESS. NO SOB/WHEEZING NOTED. ON TRACH TO VENT WITH CURRENT SETTINGS, TOLERATING WELL. WITH INTACT G-TUBE, NO RESIDUAL NOTED AND WITH FEEDING OF GLUCERNA 1.2 RUNNING AT 55ML/HR. NOTED WITH LIANA MIDLINE, PATENT AND INTACT, FLUSHES WELL. TURNED AND REPOSITIONED EVERY 2 HOURS AND TOLERATED TO PROMOTE PROPER CIRCULATION AND COMFORT. SAFETY MEASURES IN PLACE. KEPT BED IN LOCKED AND IN LOWEST POSITION. SIDE RAILS UP X2. CALL LIGHT WITHIN EASY REACH. ALL NURSING NEEDS ATTENDED. NO EPISODE OF TRACH BLEEDING. WILL ENDORSED TO INCOMING NURSE FOR CONTINUITY OF CARE.
--- NOTE | 2022-07-28 19:30 | NUR ---
RN OPENING NOTES RECEIVED PATIENT IN BED, AWAKE BUT NON VERBAL. AFEBRILE AND NOT IN ANY FORM OF ACUTE DISTRESS. NO SOB/WHEEZING NOTED. ON TRACH TO VENT WITH CURRENT SETTINGS, TOLERATING WELL. WITH INTACT G-TUBE, NO RESIDUAL NOTED AND WITH FEEDING OF GLUCERNA 1.2 ATG 55ML/HR. WITH IV ACCESS ON L ANTECUBITAL 18G SL. SAFETY MEASURES IN PLACE. KEPT BED IN LOCKED AND IN LOWEST POSITION. SIDE RAILS UP X2. CALL LIGHT WITHIN EASY REACH.
[2022-07-28 20:00] VITALS: BP 115/48
[2022-07-28] MEDS: DOCUSATE SODIUM 100 MG CAPSULE PO SCH (22:34)
[2022-07-28] MEDS: ATORVASTATIN 10 MG TABLET GT SCH (22:35)
[2022-07-28] MEDS: SULFAMETH/TRIMETH 800/160 MG 1 UDTAB TABLET PO SCH (22:35)
[2022-07-29] VITALS: BP 98/49
[2022-07-29] MEDS: ALBUTEROL FS 2.5 MG/3 ML VIAL.NEB IH SCH ×4 (01:15→20:09)
[2022-07-29] MEDS: GLUCERNA 1.2 1,000 ML BOTTLE GT PRN (04:32)
[2022-07-29 05:00] VITALS: BP 139/95
[2022-07-29] MEDS: BLOOD SUGAR DIAGNOSTIC 1 EACH STRIP IN SCH ×3 (05:11→18:11)
[2022-07-29] MEDS: INSULIN REGULAR, HUMAN 100 UNIT/ML 3 ML VIAL SQ PRN ×2 (05:20→13:43)
[2022-07-29 06:45] LABS: CALCIUM, SERUM 8.5 mg/dL (8.5-10.1); CREATININE 0.5 mg/dL (0.6-1.3); MAGNESIUM 2.4 mg/dL (1.8-2.4); PHOSPHORUS 3.1 mg/dL (2.5-4.9); POTASSIUM 3.5 mmol/L (3.5-5.1)
[2022-07-29 06:58] LABS: BASOPHILS # (AUTO) 0.1 K/uL (0.0-0.2); EOSINOPHILS % (AUTO) 4.7 % (0.0-6.0); HEMATOCRIT 30 % (33-45); HEMOGLOBIN 9.7 g/dL (11.5-14.8); LYMPHOCYTES # (AUTO) 1.3 K/uL (0.8-4.8); LYMPHOCYTES % (AUTO) 16.4 % (20.0-44.0); MEAN CORPUSCULAR HGB CONC 33 g/dl (31.0-36.0); MEAN CORPUSCULAR VOLUME 87 fL (82-100); MONOCYTES # (AUTO) 0.8 K/uL (0.1-1.30); MONOCYTES % (AUTO) 10.8 % (2.0-12.0); NEUTROPHILS # (AUTO) 5.1 K/uL (1.8-8.9); NEUTROPHILS % (AUTO) 67.1 % (43.0-81.0); PLATELET COUNT (AUTO) 228 K/uL (150-450); RED BLOOD CELL COUNT(AUTO) 3.44 MIL/uL (4.0-5.2); WHITE BLOOD COUNT (AUTO) 7.7 K/uL (4.3-11.0)
--- NOTE | 2022-07-29 07:07 | NUR ---
RN CLOSING NOTE PATIENT IN BED, AWAKE BUT NON VERBAL. AFEBRILE AND NOT IN ANY FORM OF ACUTE DISTRESS. NO SOB/WHEEZING NOTED. ON TRACH TO VENT WITH CURRENT SETTINGS, TOLERATING WELL. WITH INTACT G-TUBE, NO RESIDUAL NOTED AND WITH FEEDING OF GLUCERNA 1.2 ATG 55ML/HR. WITH IV ACCESS ON SAL MIDLINE S/L. SAFETY MEASURES IN PLACE. KEPT BED IN LOCKED AND IN LOWEST POSITION. SIDE RAILS UP X2. CALL LIGHT WITHIN EASY REACH. WILL ENDORSE EDWARD TO DAY SHIFT NURSE.
--- NOTE | 2022-07-29 07:30 | NUR ---
RURAL ROUTE MAIL CARRIER OPENING NOTES RECEIVED PATIENT IN BED, AWAKE ,NON VERBAL. AFEBRILE AND NOT IN ANY FORM OF ACUTE DISTRESS. NO SOB/WHEEZING NOTED. ON TRACH TO VENT WITH CURRENT SETTINGS, TOLERATING WELL. WITH INTACT G-TUBE, NO RESIDUAL NOTED. PLACEMENT CHECKED . IN PLACE , CHECKED WITH OLVIN ALSO. AND WITH FEEDING OF GLUCERNA 1.2 AT 55ML/HR.IV ACCESS ON LAC 18G SL. ALL SAFETY MEASURES IN PLACE. KEPT BED IN LOCKED AND IN LOWEST POSITION. SIDE RAILS UP X2. CALL LIGHT WITHIN EASY REACH. HEAD OF BED ELEVATED FOR ASPIRATION PRECAUTION. WILL CONTINUE TO MONITOR.
[2022-07-29 08:00] VITALS: BP 143/96
[2022-07-29] MEDS: LEVOTHYROXINE SODIUM 100 MCG TABLET GT SCH (08:18)
[2022-07-29] MEDS: FOLIC ACID 1 MG TABLET GT SCH (08:22)
[2022-07-29] MEDS: SULFAMETH/TRIMETH 800/160 MG 1 UDTAB TABLET PO SCH ×2 (08:22→21:04)
[2022-07-29] MEDS: FUROSEMIDE 20 MG TABLET GT SCH (08:23)
[2022-07-29] MEDS: ACETAMINOPHEN 650 MG/20.3 ML UDC GT SCH ×2 (08:23→18:53)
[2022-07-29] MEDS: LEVETIRACETAM SOL (5 ML) 100 MG/ML UDC GT SCH ×2 (08:23→21:04)
[2022-07-29] MEDS: CHLORHEXIDINE GLUCONATE 15 ML UDC MM SCH ×2 (08:23→21:03)
[2022-07-29] MEDS: CARVEDILOL 12.5 MG TABLET GT SCH ×2 (08:24→18:01)
[2022-07-29] MEDS: ASCORBIC ACID 500 MG TABLET GT SCH (08:24)
[2022-07-29] MEDS: PANTOPRAZOLE 40 MG/PACK PACK GT SCH (09:02)
[2022-07-29 11:07] LABS: *SPE A/G RATIO 0.7 (0.7-1.7); *SPE ALPHA-1-GLOBULIN 0.3 g/dL (0.0-0.4); *SPE BETA GLOBULIN 1.3 g/dL (0.7-1.3); *SPE M-SPIKE Not Observed g/dL (Not Observed)
[2022-07-29] MEDS ORDERED: IOHEXOL-300 100 ML VIAL IV ONE (11:17)
[2022-07-29] MEDS ORDERED: IV NS 0.9% 250 ML IV ONE (11:18)
[2022-07-29 12:00] VITALS: BP 144/56
[2022-07-29] MEDS: SOD FERRIC GLUC 125 MG in IV NS 0.9% 100 ML IV SCH (14:23)
[2022-07-29 16:00] VITALS: BP 123/63
--- NOTE | 2022-07-29 19:30 | NUR ---
TELE CLOSING NOTES PATIENT IN BED, AWAKE ,NON VERBAL. DAUGHTER AT BED SIDE.AFEBRILE AND NOT IN ANY FORM OF ACUTE DISTRESS. NO SOB/WHEEZING NOTED. ON TRACH TO VENT WITH CURRENT SETTINGS, TOLERATING WELL. WITH INTACT G-TUBE, NO RESIDUAL NOTED. PLACEMENT CHECKED . IN PLACE , CHECKED WITH OLVIN ALSO. AND WITH FEEDING OF GLUCERNA 1.2 AT 55ML/HR.IV ACCESS ON LAC 18G SL. ALL DUE MEDS GIVEN ORDERED. NPO FROM [facility] TO HAVE BIOPSY TOMORROW. ALL SAFETY MEASURES IN PLACE. KEPT BED IN LOCKED AND IN LOWEST POSITION. SIDE RAILS UP X2. CALL LIGHT WITHIN EASY REACH. HEAD OF BED ELEVATED FOR ASPIRATION PRECAUTION. WILL ENDORSE FOR EDWARD.
--- NOTE | 2022-07-29 19:52 | NUR ---
noc rn opening received patient in bed, eye opening to stimuli. no s/s of apparent distress-- vent dependent. no bleeding noted on trach area. not exhibiting pain via flacc. 1 daughter at the bedside. tele monitor reading sb with 51 bpm with bbb and pac's. g-tube noted to be in place with redness-- will monitor. g-tube feeding glucerna 1.2 running 55mls/hr. lt. ac #18g on saline lock. safety in place. will continue with plan of care for patient.
[2022-07-29 20:00] VITALS: BP 106/31
[2022-07-29] MEDS: ATORVASTATIN 10 MG TABLET GT SCH (21:14)
[2022-07-29] MEDS: DOCUSATE SODIUM 100 MG CAPSULE PO SCH (21:14)
[2022-07-30] VITALS: BP 115/41
[2022-07-30] MEDS: INSULIN REGULAR, HUMAN 100 UNIT/ML 3 ML VIAL SQ PRN ×2 (00:35→06:14)
[2022-07-30] MEDS: BLOOD SUGAR DIAGNOSTIC 1 EACH STRIP IN SCH ×4 (00:35→17:08)
[2022-07-30] MEDS: ALBUTEROL FS 2.5 MG/3 ML VIAL.NEB IH SCH ×4 (01:58→20:22)
[2022-07-30 04:00] VITALS: BP 130/41
[2022-07-30 06:18] LABS: BASOPHILS % (AUTO) 0.9 % (0.0-2.0); EOSINOPHILS % (AUTO) 6.3 % (0.0-6.0); HEMATOCRIT 29 % (33-45); HEMOGLOBIN 9.6 g/dL (11.5-14.8); LYMPHOCYTES # (AUTO) 1.2 K/uL (0.8-4.8); LYMPHOCYTES % (AUTO) 23.3 % (20.0-44.0); MEAN CORPUSCULAR HGB CONC 34 g/dl (31.0-36.0); MEAN CORPUSCULAR VOLUME 86 fL (82-100); MONOCYTES # (AUTO) 0.6 K/uL (0.1-1.30); MONOCYTES % (AUTO) 10.9 % (2.0-12.0); NEUTROPHILS % (AUTO) 58.6 % (43.0-81.0); PLATELET COUNT (AUTO) 237 K/uL (150-450); RED BLOOD CELL COUNT(AUTO) 3.31 MIL/uL (4.0-5.2); WHITE BLOOD COUNT (AUTO) 5.1 K/uL (4.3-11.0)
[2022-07-30 06:57] LABS: CALCIUM, SERUM 8.5 mg/dL (8.5-10.1); CREATININE 0.5 mg/dL (0.6-1.3); MAGNESIUM 2.5 mg/dL (1.8-2.4); POTASSIUM 3.6 mmol/L (3.5-5.1)
--- NOTE | 2022-07-30 07:30 | NUR ---
RN Opening Note Patient non verbal, not ab;le to assess patients mental status. Patient opens yes and seems to be aware of her name. Patient makes some face expressions. Patient in bewd with no signs of discomfort or distress. Using FLACC patients pain is 0/10. Made patient aware of plan of care and the scheduled biopsy. Patients IV with no signs of infiltration. Feedings are paused at the moment for patient scheduled procedure. Will continue to monitor throughout shift and provide care as needed. All safety precautions taken, call light and table within reach, bed at lowest position.
--- NOTE | 2022-07-30 07:38 | NUR ---
noc rn closing needs attended. report given to stevo Frankel for continuity of patient care.
[2022-07-30 08:00] VITALS: BP 113/54
[2022-07-30] MEDS: FOLIC ACID 1 MG TABLET GT SCH (08:33)
[2022-07-30] MEDS: ASCORBIC ACID 500 MG TABLET GT SCH (08:33)
[2022-07-30] MEDS: PANTOPRAZOLE 40 MG/PACK PACK GT SCH (08:33)
[2022-07-30] MEDS: LEVOTHYROXINE SODIUM 100 MCG TABLET GT SCH (08:33)
[2022-07-30] MEDS: ACETAMINOPHEN 650 MG/20.3 ML UDC GT SCH ×2 (08:34→16:50)
[2022-07-30] MEDS: CHLORHEXIDINE GLUCONATE 15 ML UDC MM SCH ×2 (08:34→21:27)
[2022-07-30] MEDS: FUROSEMIDE 20 MG TABLET GT SCH (08:34)
[2022-07-30] MEDS: LEVETIRACETAM SOL (5 ML) 100 MG/ML UDC GT SCH ×2 (08:34→21:28)
[2022-07-30] MEDS: SULFAMETH/TRIMETH 800/160 MG 1 UDTAB TABLET PO SCH ×2 (08:34→21:28)
[2022-07-30] MEDS: CARVEDILOL 12.5 MG TABLET GT SCH ×2 (09:00→16:50)
--- NOTE | 2022-07-30 11:12 | NUR ---
WOUND CARE CONSULT:PT PRESENTS WITH SACRAL SCARRING AND REDNESS TO LEFT AXILLA PRESENT ON ADMISSION. RECOMMENDATIONS MADE FOR SKIN PROTECTION. DISCUSSED WITH NURSING STAFF. IN AGREEMENT WITH PLAN OF CARE. Addendum: 07/30/22 at 1114 by JAJA WHITMAN WNDNU Amended: Links added.
[2022-07-30 12:00] VITALS: BP 135/57
[2022-07-30] MEDS ORDERED: MIDAZOLAM HCL 2 MG/2ML VIAL IV PRN (13:30)
[2022-07-30] MEDS ORDERED: NALOXONE PREFILLED SYRINGE 2 MG/2 ML SYRINGE IV PRN (13:30)
[2022-07-30] MEDS ORDERED: FLUMAZENIL 0.5 MG VIAL IV PRN (13:30)
[2022-07-30] MEDS: FENTANYL PF 250MCG/5ML AMPUL IV PRN ×2 (14:01→14:03)
[2022-07-30] MEDS: SOD FERRIC GLUC 125 MG in IV NS 0.9% 100 ML IV SCH (15:06)
[2022-07-30 16:00] VITALS: BP 148/70
[2022-07-30] MEDS: GLUCERNA 1.2 1,000 ML BOTTLE GT PRN (16:52)
--- NOTE | 2022-07-30 18:00 | NUR ---
RN Closing Note Patient Non-verbal. Not able to express her concerns. Patient shows no signs of discomfort or distress. Daughter at bedside providing tattoo artist. Will endorse report to night nurse for continuity of care. Patient remained safe and stable throughput shift. Will continue to monitor throughout shift and provide care as needed. All safety precautions taken, call light and table within reach, bed at lowest position.
--- NOTE | 2022-07-30 19:30 | NUR ---
noc rn opening received patient in bed, eye opening to stimuli. no s/s of apparent distress-- vent dependent. no bleeding noted on trach area. not exhibiting pain via flacc. 1 daughter at the bedside. tele monitor reading sb with 50 bpm with bbb and pac's. g-tube noted to be in place with redness-- will monitor. g-tube feeding glucerna 1.2 running 55mls/hr. lt. ac #18g on saline lock. safety in place. will continue with plan of care for patient.
[2022-07-30 20:00] VITALS: BP 126/54
[2022-07-30] MEDS: DOCUSATE SODIUM 100 MG CAPSULE PO SCH (21:27)
[2022-07-30] MEDS: ATORVASTATIN 10 MG TABLET GT SCH (21:28)
[2022-07-31] VITALS: BP 120/75
[2022-07-31] MEDS: BLOOD SUGAR DIAGNOSTIC 1 EACH STRIP IN SCH ×4 (00:16→17:27)
[2022-07-31] MEDS: INSULIN REGULAR, HUMAN 100 UNIT/ML 3 ML VIAL SQ PRN (00:18)
[2022-07-31] MEDS: ALBUTEROL FS 2.5 MG/3 ML VIAL.NEB IH SCH ×4 (02:10→20:14)
[2022-07-31 04:00] VITALS: BP 122/37
--- NOTE | 2022-07-31 07:18 | NUR ---
PICCOLOIST CLOSING NOTES PATIENT IN BED, AWAKE, NON VERBAL. AFEBRILE AND NOT IN ANY FORM OF ACUTE DISTRESS. NO SOB/WHEEZING NOTED. ON TRACH TO VENT WITH CURRENT SETTINGS, TOLERATING WELL. WITH INTACT G-TUBE, NO RESIDUAL NOTED. PLACEMENT CHECKED. AND WITH FEEDING OF GLUCERNA 1.2 AT 55ML/HR. IV ACCESS ON LAC 18G SL. ALL DUE MEDS GIVEN ORDERED. ALL SAFETY MEASURES IN PLACE. KEPT BED IN LOCKED AND IN LOWEST POSITION. SIDE RAILS UP X2. CALL LIGHT WITHIN EASY REACH. HEAD OF BED ELEVATED FOR ASPIRATION PRECAUTION. WILL ENDORSE FOR EDWARD.
[2022-07-31 07:20] LABS: CALCIUM, SERUM 8.8 mg/dL (8.5-10.1); CREATININE 0.5 mg/dL (0.6-1.3); MAGNESIUM 2.5 mg/dL (1.8-2.4); POTASSIUM 3.7 mmol/L (3.5-5.1)
--- NOTE | 2022-07-31 07:30 | NUR ---
RN Opening Note Not able to assess pts mental status, patient blinks to her name and responds to touch. Patient in bed with no signs of discomfort or distress. Patient on ventilator, o2 saturation at 100. Iv with no signs of infiltration. Feedings running as ordered. All safety precautions taken, call light and table within reach and bed at lowest position.
[2022-07-31] MEDS: LEVOTHYROXINE SODIUM 100 MCG TABLET GT SCH (07:49)
[2022-07-31 08:00] VITALS: BP 112/47
[2022-07-31 08:11] LABS: BASOPHILS # (AUTO) 0.1 K/uL (0.0-0.2); BASOPHILS % (AUTO) 1.3 % (0.0-2.0); EOSINOPHILS % (AUTO) 4.3 % (0.0-6.0); HEMATOCRIT 30 % (33-45); HEMOGLOBIN 9.7 g/dL (11.5-14.8); LYMPHOCYTES # (AUTO) 1.2 K/uL (0.8-4.8); LYMPHOCYTES % (AUTO) 23.4 % (20.0-44.0); MEAN CORPUSCULAR HGB CONC 33 g/dl (31.0-36.0); MEAN CORPUSCULAR VOLUME 87 fL (82-100); MONOCYTES # (AUTO) 0.6 K/uL (0.1-1.30); MONOCYTES % (AUTO) 11.2 % (2.0-12.0); NEUTROPHILS % (AUTO) 59.8 % (43.0-81.0); PLATELET COUNT (AUTO) 252 K/uL (150-450)
[2022-07-31] MEDS: PANTOPRAZOLE 40 MG/PACK PACK GT SCH (08:27)
[2022-07-31] MEDS: ACETAMINOPHEN 650 MG/20.3 ML UDC GT SCH ×2 (08:27→16:30)
[2022-07-31] MEDS: LEVETIRACETAM SOL (5 ML) 100 MG/ML UDC GT SCH ×2 (08:27→21:26)
[2022-07-31] MEDS: CHLORHEXIDINE GLUCONATE 15 ML UDC MM SCH ×2 (08:27→21:26)
[2022-07-31] MEDS: SULFAMETH/TRIMETH 800/160 MG 1 UDTAB TABLET PO SCH ×2 (08:28→21:26)
[2022-07-31] MEDS: FOLIC ACID 1 MG TABLET GT SCH (08:28)
[2022-07-31] MEDS: FUROSEMIDE 20 MG TABLET GT SCH (08:28)
[2022-07-31] MEDS: ASCORBIC ACID 500 MG TABLET GT SCH (08:29)
[2022-07-31] MEDS: CARVEDILOL 12.5 MG TABLET GT SCH ×2 (08:29→16:31)
[2022-07-31] MEDS: SOD FERRIC GLUC 125 MG in IV NS 0.9% 100 ML IV SCH (14:10)
[2022-07-31] MEDS ORDERED: GLUCERNA 1.2 1,000 ML BOTTLE NG PRN (15:00)
[2022-07-31 15:55] VITALS: BP 142/47
[2022-07-31] MEDS: GLUCERNA 1.2 1,000 ML BOTTLE GT PRN (16:09)
--- NOTE | 2022-07-31 18:30 | NUR ---
RN Closing Note Patient Non-verbal. Not able to express her concerns. Patient shows no signs of discomfort or distress. Daughter at bedside providing perforator operator. Will endorse report to night nurse for continuity of care. Patient remained safe and stable throughput shift. Will continue to monitor throughout shift and provide care as needed. All safety precautions taken, call light and table within reach, bed at lowest position.
--- NOTE | 2022-07-31 19:30 | NUR ---
RN OPENING NOTE PATIENT IN BED, EYES CLOSED AND NONVERBAL, DAUGHTER AT BEDSIDE. PATIENT ON MECHANICAL VENT WITH FIO2 40%, TOLERATING WELL. PATIENT NOT IN ANY RESPIRATORY DISTRESS AT THIS TIME. TELE MONITOR READS SB 52 BPM WITH PVCS. PATIENT ON GLUCERNA 1.2 AT 55 ML/HR VIA G TUBE. NO RESIDUAL, PATENT AND INTACT. LIANA MIDLINE FLUSHING WELL WITH NS, DRESSING C/D/I. PATIENT NOT IN ANY PAIN VIA FLACC. SAFETY MEASURES IN PLACE: BED LOCKED AND IN LOWEST POSITION, CALL LIGHT WITHIN REACH, SIDE RAILS UP. WILL MONITOR PATIENT CLOSELY.
[2022-07-31 20:00] VITALS: BP 128/57
[2022-07-31] MEDS: MUPIROCIN OINT 2% 22 GM TUBE NS SCH (21:26)
[2022-07-31] MEDS: ATORVASTATIN 10 MG TABLET GT SCH (21:26)
[2022-07-31] MEDS: DOCUSATE SODIUM 100 MG CAPSULE PO SCH (21:27)
[2022-08-01] VITALS: BP 126/57
[2022-08-01] MEDS: BLOOD SUGAR DIAGNOSTIC 1 EACH STRIP IN SCH ×4 (00:40→17:29)
--- NOTE | 2022-08-01 01:00 | NUR ---
TF TURNED OFF AT THIS TIME. FEEDING FOR ONLY 20 HOURS, WILL RESTART AT 0500.
[2022-08-01] MEDS: INSULIN REGULAR, HUMAN 100 UNIT/ML 3 ML VIAL SQ PRN (01:03)
[2022-08-01] MEDS: ALBUTEROL FS 2.5 MG/3 ML VIAL.NEB IH SCH ×4 (02:22→20:44)
[2022-08-01 04:00] VITALS: BP 125/48
--- NOTE | 2022-08-01 07:28 | NUR ---
RN CLOSING NOTE PATIENT IN BED, EYES CLOSED AND NONVERBAL. PATIENT ON MECHANICAL VENT WITH FIO2 40%, TOLERATING WELL. PATIENT NOT IN ANY RESPIRATORY DISTRESS AT THIS TIME. TELE MONITOR READS SB 56 BPM WITH PVCS. PATIENT ON GLUCERNA 1.2 AT 55 ML/HR VIA G TUBE. NO RESIDUAL, PATENT AND INTACT, TURNED BACK ON AT 0500. LIANA MIDLINE FLUSHING WELL WITH NS, DRESSING C/D/I. PATIENT NOT IN ANY PAIN VIA FLACC. SAFETY MEASURES IN PLACE: BED LOCKED AND IN LOWEST POSITION, CALL LIGHT WITHIN REACH, SIDE RAILS UP. PLACED AIR MATTRESS. ALL NEEDS MET AND ATTENDED. ALL ORDERS CARRIED OUT. ENDORSED TO DAY SHIFT NURSE FOR EDWARD.
[2022-08-01 07:44] LABS: BASOPHILS # (AUTO) 0.1 K/uL (0.0-0.2); BASOPHILS % (AUTO) 1.2 % (0.0-2.0); EOSINOPHILS % (AUTO) 4.7 % (0.0-6.0); HEMATOCRIT 28 % (33-45); HEMOGLOBIN 9.2 g/dL (11.5-14.8); LYMPHOCYTES # (AUTO) 1.1 K/uL (0.8-4.8); LYMPHOCYTES % (AUTO) 18.7 % (20.0-44.0); MEAN CORPUSCULAR HGB CONC 33 g/dl (31.0-36.0); MEAN CORPUSCULAR VOLUME 86 fL (82-100); MONOCYTES # (AUTO) 0.7 K/uL (0.1-1.30); MONOCYTES % (AUTO) 12.3 % (2.0-12.0); NEUTROPHILS # (AUTO) 3.8 K/uL (1.8-8.9); NEUTROPHILS % (AUTO) 63.1 % (43.0-81.0); PLATELET COUNT (AUTO) 222 K/uL (150-450)
[2022-08-01] MEDS: LEVOTHYROXINE SODIUM 100 MCG TABLET GT SCH (07:56)
[2022-08-01 08:00] VITALS: BP 129/93
[2022-08-01 08:08] LABS: CALCIUM, SERUM 8.6 mg/dL (8.5-10.1); CREATININE 0.5 mg/dL (0.6-1.3); MAGNESIUM 2.5 mg/dL (1.8-2.4); PHOSPHORUS 2.9 mg/dL (2.5-4.9); POTASSIUM 3.8 mmol/L (3.5-5.1)
[2022-08-01] MEDS: PANTOPRAZOLE 40 MG/PACK PACK GT SCH (09:48)
[2022-08-01] MEDS: ACETAMINOPHEN 650 MG/20.3 ML UDC GT SCH ×2 (09:49→16:09)
[2022-08-01] MEDS: LEVETIRACETAM SOL (5 ML) 100 MG/ML UDC GT SCH ×2 (09:49→21:08)
[2022-08-01] MEDS: CHLORHEXIDINE GLUCONATE 15 ML UDC MM SCH ×2 (09:50→21:06)
[2022-08-01] MEDS: FUROSEMIDE 20 MG TABLET GT SCH (09:50)
[2022-08-01] MEDS: FOLIC ACID 1 MG TABLET GT SCH (09:50)
[2022-08-01] MEDS: SULFAMETH/TRIMETH 800/160 MG 1 UDTAB TABLET PO SCH ×2 (09:50→21:07)
[2022-08-01] MEDS: ASCORBIC ACID 500 MG TABLET GT SCH (09:50)
[2022-08-01] MEDS: CARVEDILOL 12.5 MG TABLET GT SCH ×2 (09:51→16:09)
[2022-08-01] MEDS: MUPIROCIN OINT 2% 22 GM TUBE NS SCH ×2 (11:06→21:09)
[2022-08-01] MEDS: SOD FERRIC GLUC 125 MG in IV NS 0.9% 100 ML IV SCH (14:43)
--- NOTE | 2022-08-01 18:36 | NUR ---
RN Closing Note Patient Non-verbal. Not able to express her concerns. Patient shows no signs of discomfort or distress. Daughter at bedside providing store stocker. Will endorse report to night nurse for continuity of care. Communicated with family as needed. Patient remained safe and stable throughput shift. Will continue to monitor throughout shift and provide care as needed. All safety precautions taken, call light and table within reach, bed at lowest position.
--- NOTE | 2022-08-01 19:15 | NUR ---
PATTERN MARKING SUPERVISOR OPENING NOTES RECEIVED PT IN BED AWAKE AT THIS TIME. NON-VERBAL. AWAKENS TO NAME AND TOUCH. PT DAUGHTER AT BEDSIDE. ON MECHANICAL VENT WITH NO S/S OF DISCOMFORT OR DISTRESS. ON TELE MONITOR READING SINUS BRADYCARDIA, 52 HR. TUBE FEEDING INTACT AND FLUSHING WELL, RUNNING GLUCERNA 1.2 @ 55 ML/HR. SAFETY PRECAUTIONS IN PLACE: BED IN LOW AND LOCKED POSITION; SIDE RAILS UP X3; CALL LIGHT WITHIN REACH. WILL CONTINUE TO MONITOR AND ASSIST.
[2022-08-01 20:00] VITALS: BP 122/47
[2022-08-01] MEDS: DOCUSATE SODIUM 100 MG CAPSULE PO SCH (21:07)
[2022-08-01] MEDS: ATORVASTATIN 10 MG TABLET GT SCH (21:07)
[2022-08-01] MEDS: GLUCERNA 1.2 1,000 ML BOTTLE GT PRN (21:15)
[2022-08-02] VITALS: BP 138/57
[2022-08-02] MEDS: BLOOD SUGAR DIAGNOSTIC 1 EACH STRIP IN SCH ×4 (00:49→17:40)
[2022-08-02] MEDS: INSULIN REGULAR, HUMAN 100 UNIT/ML 3 ML VIAL SQ PRN ×3 (01:01→18:00)
--- NOTE | 2022-08-02 01:02 | NUR ---
RN NOTES INSULIN COVERAGE NON-ADMIN PER SLIDING SCALE. BLOOD SUGAR READING AT 121. PT ON TUBE FEEDING.
[2022-08-02] MEDS: ALBUTEROL FS 2.5 MG/3 ML VIAL.NEB IH SCH ×4 (02:01→20:21)
--- NOTE | 2022-08-02 05:40 | NUR ---
RN NOTES INSULIN COVERAGE NON-ADMIN PER SLIDING SCALE FOR 0600 ACCUCHECK . BLOOD SUGAR READING AT 121. PT ON TUBE FEEDING.
[2022-08-02 06:58] LABS: BASOPHILS # (AUTO) 0.1 K/uL (0.0-0.2); BASOPHILS % (AUTO) 0.9 % (0.0-2.0); EOSINOPHILS % (AUTO) 4.6 % (0.0-6.0); HEMATOCRIT 29 % (33-45); HEMOGLOBIN 9.6 g/dL (11.5-14.8); LYMPHOCYTES # (AUTO) 1.1 K/uL (0.8-4.8); LYMPHOCYTES % (AUTO) 15.7 % (20.0-44.0); MEAN CORPUSCULAR HGB CONC 33 g/dl (31.0-36.0); MEAN CORPUSCULAR VOLUME 89 fL (82-100); MONOCYTES # (AUTO) 0.8 K/uL (0.1-1.30); MONOCYTES % (AUTO) 11.6 % (2.0-12.0); NEUTROPHILS # (AUTO) 4.6 K/uL (1.8-8.9); NEUTROPHILS % (AUTO) 67.2 % (43.0-81.0); PLATELET COUNT (AUTO) 223 K/uL (150-450); RED BLOOD CELL COUNT(AUTO) 3.29 MIL/uL (4.0-5.2); WHITE BLOOD COUNT (AUTO) 6.9 K/uL (4.3-11.0)
[2022-08-02 07:43] LABS: CALCIUM, SERUM 8.6 mg/dL (8.5-10.1); CREATININE 0.4 mg/dL (0.6-1.3); MAGNESIUM 2.6 mg/dL (1.8-2.4); PHOSPHORUS 3.2 mg/dL (2.5-4.9); POTASSIUM 3.8 mmol/L (3.5-5.1)
--- NOTE | 2022-08-02 07:45 | NUR ---
PIPED POCKET MACHINE OPERATOR CLOSING NOTES PT IN BED AWAKE AT THIS TIME. NON-VERBAL. AWAKENS TO NAME AND TOUCH. STABLE ON MECHANICAL VENT WITH NO S/S OF DISCOMFORT OR DISTRESS. ON TELE MONITOR READING SINUS BRADYCARDIA, 52 HR. TUBE FEEDING INTACT AND FLUSHING WELL, RUNNING GLUCERNA 1.2 @ 55 ML/HR. ALL CARE PROVIDED WELL AND ADMINISTERED MEDICATIONS TOLERATED WELL. SAFETY PRECAUTIONS MAINTAINED: BED IN LOW AND LOCKED POSITION; SIDE RAILS UP X3; CALL LIGHT WITHIN REACH. WILL ENDORSE EDWARD TO HAND SLITTER NURSE.
[2022-08-02] MEDS: LEVOTHYROXINE SODIUM 100 MCG TABLET GT SCH (08:15)
[2022-08-02] MEDS: ACETAMINOPHEN 650 MG/20.3 ML UDC GT SCH ×2 (08:33→17:40)
[2022-08-02] MEDS: LEVETIRACETAM SOL (5 ML) 100 MG/ML UDC GT SCH ×2 (08:33→22:02)
[2022-08-02] MEDS: PANTOPRAZOLE 40 MG/PACK PACK GT SCH (08:33)
[2022-08-02] MEDS: FOLIC ACID 1 MG TABLET GT SCH (08:33)
[2022-08-02] MEDS: FUROSEMIDE 20 MG TABLET GT SCH (08:34)
[2022-08-02] MEDS: ASCORBIC ACID 500 MG TABLET GT SCH (08:34)
[2022-08-02] MEDS: CHLORHEXIDINE GLUCONATE 15 ML UDC MM SCH ×2 (08:34→22:02)
[2022-08-02] MEDS: CARVEDILOL 12.5 MG TABLET GT SCH ×2 (08:34→17:40)
[2022-08-02] MEDS: SULFAMETH/TRIMETH 800/160 MG 1 UDTAB TABLET PO SCH (08:34)
[2022-08-02] MEDS: MUPIROCIN OINT 2% 22 GM TUBE NS SCH ×2 (08:35→22:02)
[2022-08-02 09:51] VITALS: BP 135/55
[2022-08-02 14:20] LABS: BAND % (MANUAL) 7 % (0.0-5.0); EOSINOPHILS % (MANUAL) 6 % (0-4); LYMPHOCYTES % (MANUAL) 12 % (16-48); MONOCYTES % (MANUAL) 2 % (0-11.0); MYELOCYTES % 1 % (0-0); NEUTROPHILS % (MANUAL) 72 (42-76)
--- NOTE | 2022-08-02 19:18 | NUR ---
WASTEWATER ANALYST LAB ANALYST CLOSING NOTES PT IN BED NON-VERBAL. STABLE ON MECHANICAL VENT WITH NO S/S OF DISCOMFORT OR DISTRESS. ON TELE MONITOR READING SINUS BRADYCARDIA, 57 HR. TUBE FEEDING INTACT AND FLUSHING WELL, RUNNING GLUCERNA 1.2 @ 55 ML/HR. ALL CARE PROVIDED WELL AND ADMINISTERED MEDICATIONS TOLERATED WELL. ALL SAFETY PRECAUTIONS MAINTAINED: BED IN LOW AND LOCKED POSITION; SIDE RAILS UP X3; CALL LIGHT WITHIN REACH. WILL ENDORSE EDWARD TO INTERIOR DESIGN COORDINATOR NURSE.
--- NOTE | 2022-08-02 19:45 | NUR ---
parcel post carrier Opening Note Received patient in bed; awake and nonverbal. On mechanical ventilator with current settings: PEEP 5, FiO2 40%, AC 14, TV 450. Breathing even and nonlabored. Not in any form of respiratory distress. No s/s of pain or discomfort noted at this time. On telemetry monitoring with current reading of sinus bradycardia with BBB, HR-59 bpm. With midline on left upper arm; intact, patent and saline locked. With g-tube in place; dressing clean, dry, and intact. On Glucerna 1.2 GT feeding running @ 55 ml/hr; flushes well. Needs anticipated. Turned and repositioning done per hospital protocol. Safety and aspiration precautions implemented: head of bed elevated, call light and table within reach, side rails up x 3, bed in lowest locked position. Will continue plan of care.
[2022-08-02 20:00] VITALS: BP 142/59
[2022-08-02] MEDS: GLUCERNA 1.2 1,000 ML BOTTLE GT PRN (20:21)
[2022-08-02] MEDS: DOCUSATE SODIUM 100 MG CAPSULE PO SCH (22:03)
[2022-08-02] MEDS: ATORVASTATIN 10 MG TABLET GT SCH (22:03)
[2022-08-03] VITALS: BP 111/81
[2022-08-03] MEDS: BLOOD SUGAR DIAGNOSTIC 1 EACH STRIP IN SCH ×4 (00:56→17:14)
[2022-08-03] MEDS: ALBUTEROL FS 2.5 MG/3 ML VIAL.NEB IH SCH ×4 (00:56→20:14)
[2022-08-03 04:00] VITALS: BP 134/49
[2022-08-03 06:20] LABS: BASOPHILS # (AUTO) 0.1 K/uL (0.0-0.2); BASOPHILS % (AUTO) 0.9 % (0.0-2.0); EOSINOPHILS % (AUTO) 4.4 % (0.0-6.0); HEMATOCRIT 29 % (33-45); HEMOGLOBIN 9.8 g/dL (11.5-14.8); LYMPHOCYTES # (AUTO) 1.2 K/uL (0.8-4.8); LYMPHOCYTES % (AUTO) 16.7 % (20.0-44.0); MEAN CORPUSCULAR HGB CONC 34 g/dl (31.0-36.0); MEAN CORPUSCULAR VOLUME 87 fL (82-100); MONOCYTES # (AUTO) 0.8 K/uL (0.1-1.30); MONOCYTES % (AUTO) 11.5 % (2.0-12.0); NEUTROPHILS # (AUTO) 4.6 K/uL (1.8-8.9); NEUTROPHILS % (AUTO) 66.5 % (43.0-81.0); PLATELET COUNT (AUTO) 228 K/uL (150-450); RED BLOOD CELL COUNT(AUTO) 3.38 MIL/uL (4.0-5.2); WHITE BLOOD COUNT (AUTO) 6.9 K/uL (4.3-11.0)
[2022-08-03] MEDS: INSULIN REGULAR, HUMAN 100 UNIT/ML 3 ML VIAL SQ PRN ×3 (06:44→17:28)
[2022-08-03 06:52] LABS: CALCIUM, SERUM 9.1 mg/dL (8.5-10.1); CREATININE 0.5 mg/dL (0.6-1.3); MAGNESIUM 2.4 mg/dL (1.8-2.4); PHOSPHORUS 3.3 mg/dL (2.5-4.9); POTASSIUM 4.1 mmol/L (3.5-5.1)
--- NOTE | 2022-08-03 06:55 | NUR ---
associate financial representative Closing Note Patient in bed; awake and nonverbal. On mechanical ventilator with current settings: PEEP 5, FiO2 40%, AC 14, TV 450. Breathing even and nonlabored. In no apparent distress. No s/s of pain or discomfort noted at this time. On telemetry monitoring with current reading of sinus bradycardia with HR-58 bpm. With midline on left upper arm; intact, patent and saline locked. With g-tube in place; dressing clean, dry, and intact. On Glucerna 1.2 GT feeding running @ 55 ml/hr; flushes well. All needs attended. Turned and repositioned. Safety and aspiration precautions maintained: head of bed elevated, call light and table within reach, side rails up x 3, bed in lowest locked position. Endorsed to morning shift for marjorie.
--- NOTE | 2022-08-03 07:30 | NUR ---
CORRECTIONAL MANAGER OPENING NOTES RECEIVED PT IN BED AWAKE AT THIS TIME. NON-VERBAL. AWAKENS TO NAME AND TOUCH. . ON MECHANICAL VENT WITH NO S/S OF DISCOMFORT OR DISTRESS. ON TELE MONITOR READING SINUS BRADYCARDIA, 59 HR. TUBE FEEDING INTACT AND FLUSHING WELL, RUNNING GLUCERNA 1.2 @ 55 ML/HR. SAFETY PRECAUTIONS IN PLACE: BED IN LOW AND LOCKED POSITION; SIDE RAILS UP X3; CALL LIGHT WITHIN REACH. WILL CONTINUE TO MONITOR FOR ANY CHANGES .
[2022-08-03 08:00] VITALS: BP 151/66
[2022-08-03] MEDS: CHLORHEXIDINE GLUCONATE 15 ML UDC MM SCH ×2 (08:41→21:30)
[2022-08-03] MEDS: ACETAMINOPHEN 650 MG/20.3 ML UDC GT SCH ×2 (08:41→16:58)
[2022-08-03] MEDS: PANTOPRAZOLE 40 MG/PACK PACK GT SCH (08:41)
[2022-08-03] MEDS: LEVOTHYROXINE SODIUM 100 MCG TABLET GT SCH (08:41)
[2022-08-03] MEDS: FUROSEMIDE 20 MG TABLET GT SCH (08:42)
[2022-08-03] MEDS: ASCORBIC ACID 500 MG TABLET GT SCH (08:42)
[2022-08-03] MEDS: FOLIC ACID 1 MG TABLET GT SCH (08:42)
[2022-08-03] MEDS: LEVETIRACETAM SOL (5 ML) 100 MG/ML UDC GT SCH (08:42)
[2022-08-03] MEDS: CARVEDILOL 12.5 MG TABLET GT SCH ×2 (08:43→16:58)
[2022-08-03] MEDS: MUPIROCIN OINT 2% 22 GM TUBE NS SCH ×2 (10:28→21:34)
--- NOTE | 2022-08-03 10:30 | NUR ---
RN NOTES PATIENT WAS NOTED PULLED OUT GTUBE WITH THE BALLOON , NO BLEEDING NOTED
[2022-08-03 12:00] VITALS: BP 132/76
[2022-08-03] MEDS ORDERED: VITAMINS A AND D 56.7 GM TUBE TP PRN (13:00)
[2022-08-03] MEDS: IV D5/0.45 NACL 1,000 ML IV SCH (15:22)
--- NOTE | 2022-08-03 15:47 | NUR ---
RN NOTES SEEN BY DR WHITEHEAD AND GTUBE SITE WAS ASSESSED AND NOTED WITH SOME DISCHARGES , WITH ORDER TO DO CULTURE ON THE GT SITE , SPECIMEN WAS COLLECTED AND LAB AWARE , WILL REFER TO ID DOCTOR , DAUGHTER AT BEDSIDE AWARE , STARTED WITH IV OF D5 1/2 @ 100 ML /HOUR , IV ACCESS ON LIANA MIDLINE PATENT AND INTACT .
[2022-08-03 16:00] VITALS: BP 142/72
--- NOTE | 2022-08-03 16:59 | NUR ---
RN NOTES PATIENT DUE MEDS FOR 1700 WAS ON HOLD DUE TO G -TUBE WAS PULLED
--- NOTE | 2022-08-03 18:22 | NUR ---
FINANCE ATTORNEY CLOSING NOTES PATIENT IN BED AWAKE AT THIS TIME. NON-VERBAL. AWAKENS TO NAME AND TOUCH. . ON MECHANICAL VENT WITH NO S/S OF DISCOMFORT OR DISTRESS. ON TELE MONITOR READING SINUS BRADYCARDIA, 56 HR. ALL DUE MEDS ORDERED , GTUBE WAS PULLED OUT AND DR WHITEHEAD AWARE AND WITH ORDER OF D5 1/2 NS @100 ML /HR ON IV ACCESS ON BEAVER MIDLINE WITH G#18 , GLUCERNA 1.2 @ 55 ML/HR ON HOLD FOR NOW , LABS IN AM , WITH PUREWICK ON WITH 1400 CC URINE , BM NOTED X 2 , SAFETY PRECAUTIONS IN PLACE: BED IN LOW AND LOCKED POSITION; SIDE RAILS UP X3; CALL LIGHT WITHIN REACH. ENDORSED TO NEXT SHIFT .
--- NOTE | 2022-08-03 19:39 | NUR ---
noc rn opening received patient in bed, with eyes closed, easy to arouse. no s/s of apparent distress-- trach dependent. not exhibiting pain via flacc. 1 visitor at bedside with patient. tele monitor reading sb-sr -- changing. patient has no G-tube, vuong cath in place-- got pulled out this am as endorsed by the morning shift rn. lt. upper arm midline running D5 1/2 ns @100mls/hr. purewick drainig well. safety in place. will continue with patient's plan of care.
[2022-08-03 20:00] VITALS: BP 113/44
[2022-08-03] MEDS: KEPPRA 1500 MG in IV NS 100 ML IV SCH (21:28)
[2022-08-03] MEDS: ATORVASTATIN 10 MG TABLET GT SCH (22:00)
[2022-08-03] MEDS: DOCUSATE SODIUM 100 MG CAPSULE PO SCH (22:00)
[2022-08-04] VITALS: BP 130/45
[2022-08-04] MEDS: INSULIN REGULAR, HUMAN 100 UNIT/ML 3 ML VIAL SQ PRN ×4 (00:03→17:31)
[2022-08-04] MEDS: IV D5/0.45 NACL 1,000 ML IV SCH ×2 (01:40→11:50)
[2022-08-04] MEDS: ALBUTEROL FS 2.5 MG/3 ML VIAL.NEB IH SCH ×4 (02:06→20:14)
[2022-08-04 05:00] VITALS: BP 144/72
[2022-08-04] MEDS: BLOOD SUGAR DIAGNOSTIC 1 EACH STRIP IN SCH ×4 (06:11→17:30)
[2022-08-04 07:10] LABS: BASOPHILS % (AUTO) 0.9 % (0.0-2.0); EOSINOPHILS % (AUTO) 5.9 % (0.0-6.0); HEMATOCRIT 30 % (33-45); HEMOGLOBIN 9.8 g/dL (11.5-14.8); LYMPHOCYTES # (AUTO) 1.1 K/uL (0.8-4.8); LYMPHOCYTES % (AUTO) 21.1 % (20.0-44.0); MEAN CORPUSCULAR HGB CONC 33 g/dl (31.0-36.0); MEAN CORPUSCULAR VOLUME 88 fL (82-100); MONOCYTES # (AUTO) 0.7 K/uL (0.1-1.30); NEUTROPHILS % (AUTO) 59.1 % (43.0-81.0); PLATELET COUNT (AUTO) 218 K/uL (150-450); RED BLOOD CELL COUNT(AUTO) 3.39 MIL/uL (4.0-5.2); WHITE BLOOD COUNT (AUTO) 5.1 K/uL (4.3-11.0)
[2022-08-04] MEDS: LEVOTHYROXINE SODIUM 100 MCG TABLET GT SCH (07:30)
--- NOTE | 2022-08-04 07:41 | NUR ---
NOC RN CLOSING NOTE NEEDS ATTENDED. REPORT GIVEN TO ZEKE WRIGHT FOR CONTINUITY OF PATIENT CARE.
--- NOTE | 2022-08-04 07:56 | NUR ---
BUSINESS MACHINE MECHANIC OPENING NOTE Patient in bed, asleep. Opens eyes, per shift engineer report. On mechanical ventilator, tolerating current settings well. IV access on LIANA midline infusing D5 1/2 NS at 100 ml/hr. GT site redness noted, GT feeding on hold for now. Purewick in place draining to a yellow colored urine. On tele monitoring showing SB, HR 56. Safety precautions in place: be din low, locked position; siderails up x 2; call light within reach. Will continue to monitor.
[2022-08-04 08:17] VITALS: BP_SYST 159; BP_SYST 166; BP_DIAS 67; BP_DIAS 73
[2022-08-04] MEDS: KEPPRA 1500 MG in IV NS 100 ML IV SCH ×2 (08:17→20:53)
[2022-08-04 08:55] LABS: CALCIUM, SERUM 8.7 mg/dL (8.5-10.1); CARBON DIOXIDE 26 mmol/L (21-32); CREATININE 0.5 mg/dL (0.6-1.3); GLUCOSE 133 mg/dL (74-106); MAGNESIUM 2.5 mg/dL (1.8-2.4); PHOSPHORUS 3.2 mg/dL (2.5-4.9); POTASSIUM 3.8 mmol/L (3.5-5.1); SODIUM SERUM 143 mmol/L (136-145); UREA NITROGEN, BLOOD 8 mg/dL (7-18)
[2022-08-04] MEDS: ASCORBIC ACID 500 MG TABLET GT SCH (09:00)
[2022-08-04] MEDS: ACETAMINOPHEN 650 MG/20.3 ML UDC GT SCH ×2 (09:00→17:00)
[2022-08-04] MEDS: FOLIC ACID 1 MG TABLET GT SCH (09:00)
[2022-08-04] MEDS: CARVEDILOL 12.5 MG TABLET GT SCH ×2 (09:00→17:00)
--- NOTE | 2022-08-04 09:00 | NUR ---
RN NOTE GT feeding held, GT site redness noted, ID consulted. PO medications scheduled for 0900 not administered.
[2022-08-04] MEDS: CHLORHEXIDINE GLUCONATE 15 ML UDC MM SCH ×2 (09:26→21:07)
[2022-08-04] MEDS: PANTOPRAZOLE 40 MG VIAL IV SCH (09:26)
[2022-08-04] MEDS: MUPIROCIN OINT 2% 22 GM TUBE NS SCH ×2 (09:26→21:08)
[2022-08-04] MEDS: FUROSEMIDE 20 MG/2 ML VIAL IV SCH (09:27)
[2022-08-04] MEDS: VANCOMYCIN 1 GM in IV D5W 250ml IV SCH ×2 (11:49→18:00)
[2022-08-04 12:10] VITALS: BP 159/70
--- NOTE | 2022-08-04 14:00 | NUR ---
RN NOTE Purewick changed, drained 1400cc of yellow colored urine.
[2022-08-04] MEDS: CEFEPIME 2 GM in IV D5W 100 ML IV SCH ×2 (14:23→21:01)
[2022-08-04 15:59] VITALS: BP 154/75
--- NOTE | 2022-08-04 17:02 | NUR ---
RN NOTE Patient's PO meds still on hold.
--- NOTE | 2022-08-04 18:46 | NUR ---
ROLLING ATTENDANT CLOSING NOTE Patient in bed, resting. Opens eyes, non-verbal. On mechanical ventilator, tolerating current settings well. IV access on LIANA midline infusing D5 1/2 NS at 100 ml/hr. GT site redness noted, GT feeding on hold for now. Purewick in place draining to a yellow colored urine with an output of 1400 cc. On tele monitoring showing SB, HR 55. Patient kept clean and dry. Due IV meds given. Turned and repositioned as tolerated. Safety precautions in place: be din low, locked position; siderails up x 2; call light within reach. Will endorse to slot shift supervisor nurse for EDWARD.
--- NOTE | 2022-08-04 19:30 | NUR ---
noc rn opening received patient in bed, with eyes closed, easy to arouse. no s/s of apparent distress-- VENT dependent. not exhibiting pain via flacc. 1 visitor at bedside with patient. tele monitor reading sb 55 bpm. patient has no G-tube, vuong cath in place with dressing. lt. upper arm midline running D5 1/2 ns @100mls/hr. purewick drainig well. safety in place. will continue with patient's plan of care.
[2022-08-04 20:00] VITALS: BP 153/75
[2022-08-04] MEDS: ATORVASTATIN 10 MG TABLET GT SCH (22:00)
[2022-08-04] MEDS: DOCUSATE SODIUM 100 MG CAPSULE PO SCH (22:00)
[2022-08-05] VITALS: BP 154/77
[2022-08-05] MEDS: BLOOD SUGAR DIAGNOSTIC 1 EACH STRIP IN SCH ×5 (00:22→23:37)
[2022-08-05] MEDS: INSULIN REGULAR, HUMAN 100 UNIT/ML 3 ML VIAL SQ PRN ×3 (00:22→23:39)
[2022-08-05] MEDS: VANCOMYCIN 1 GM in IV D5W 250ml IV SCH (03:26)
[2022-08-05 04:00] VITALS: BP 152/79
[2022-08-05] MEDS: ALBUTEROL FS 2.5 MG/3 ML VIAL.NEB IH SCH ×4 (04:12→20:38)
[2022-08-05] MEDS: CEFEPIME 2 GM in IV D5W 100 ML IV SCH ×3 (05:24→20:07)
[2022-08-05 06:23] LABS: BASOPHILS # (AUTO) 0.1 K/uL (0.0-0.2); EOSINOPHILS % (AUTO) 6.4 % (0.0-6.0); HEMATOCRIT 28 % (33-45); HEMOGLOBIN 9.5 g/dL (11.5-14.8); LYMPHOCYTES # (AUTO) 1.1 K/uL (0.8-4.8); LYMPHOCYTES % (AUTO) 20.6 % (20.0-44.0); MEAN CORPUSCULAR HGB CONC 34 g/dl (31.0-36.0); MEAN CORPUSCULAR VOLUME 86 fL (82-100); MONOCYTES # (AUTO) 0.7 K/uL (0.1-1.30); MONOCYTES % (AUTO) 13.6 % (2.0-12.0); NEUTROPHILS # (AUTO) 3.2 K/uL (1.8-8.9); NEUTROPHILS % (AUTO) 58.4 % (43.0-81.0); PLATELET COUNT (AUTO) 206 K/uL (150-450); RED BLOOD CELL COUNT(AUTO) 3.27 MIL/uL (4.0-5.2); WHITE BLOOD COUNT (AUTO) 5.4 K/uL (4.3-11.0)
[2022-08-05] MEDS: IV D5/0.45 NACL 1,000 ML IV SCH ×3 (06:53→17:59)
[2022-08-05] MEDS: LEVOTHYROXINE SODIUM 100 MCG TABLET GT SCH (07:30)
--- NOTE | 2022-08-05 07:30 | NUR ---
RN Receiving Report. Non-Verbal pt, not able to assess patients mental status. Patient on air mattress, with vent in place as ordered. IV running as ordered with no signs of infiltration. Patient looks comfortable and clean, no signs of distress or discomfort. All safety precautions taken, call light and table within reach, bed at lowest position.
[2022-08-05 08:00] VITALS: BP 142/55
--- NOTE | 2022-08-05 08:11 | NUR ---
Non Admin Meds Not able to administer GTube meds, Gtube not available at the moment. Per night nurse, and charge nurse were made aware.
[2022-08-05 08:41] LABS: CALCIUM, SERUM 8.1 mg/dL (8.5-10.1); CREATININE 0.5 mg/dL (0.6-1.3); PHOSPHORUS 3.1 mg/dL (2.5-4.9); POTASSIUM 3.4 mmol/L (3.5-5.1)
[2022-08-05] MEDS: CARVEDILOL 12.5 MG TABLET GT SCH ×2 (09:00→17:00)
[2022-08-05] MEDS: ACETAMINOPHEN 650 MG/20.3 ML UDC GT SCH ×2 (09:00→17:00)
[2022-08-05] MEDS: ASCORBIC ACID 500 MG TABLET GT SCH (09:00)
[2022-08-05] MEDS: FOLIC ACID 1 MG TABLET GT SCH (09:00)
[2022-08-05] MEDS: KEPPRA 1500 MG in IV NS 100 ML IV SCH ×2 (09:05→20:55)
[2022-08-05] MEDS: FUROSEMIDE 20 MG/2 ML VIAL IV SCH (09:06)
[2022-08-05] MEDS: PANTOPRAZOLE 40 MG VIAL IV SCH (09:06)
[2022-08-05] MEDS: CHLORHEXIDINE GLUCONATE 15 ML UDC MM SCH ×2 (12:02→20:55)
[2022-08-05] MEDS: MUPIROCIN OINT 2% 22 GM TUBE NS SCH ×2 (12:03→20:55)
[2022-08-05] MEDS ORDERED: MUPIROCIN OINT 2% 22 GM TUBE NS SCH (14:30)
[2022-08-05 16:00] VITALS: BP 105/61
[2022-08-05] MEDS: hydrALAZINE HCL IV 20 MG VIAL IV PRN (17:27)
--- NOTE | 2022-08-05 18:38 | NUR ---
RN Closing Note Patient Non-verbal. Not able to express her concerns. Patient shows no signs of discomfort or distress. Daughter at bedside providing glass sander belt. Will endorse report to night nurse for continuity of care. Patient remained safe and stable throughput shift. Provided BP medication as ordered by physician. Will continue to monitor throughout shift and provide care as needed. All safety precautions taken, call light and table within reach, bed at lowest position.
--- NOTE | 2022-08-05 19:30 | NUR ---
CHIEF PSYCHOLOGY OPENING NOTE RECEIVED PT IN BED. DAUGHTER AT BEDSIDE. ON MECHANICAL VENT WITH ORDERED SETTINGS, TOLERATING WELL. NO SOB OR S/S OF RESPIRATORY DISTRESS. ON EXTERNAL NUCLEAR PHYSICS TEACHER READING SB 55 BPM. IV ACCESS LIANA ML, INTACT AND PATENT, RUNNING D5 1/2 NS @ 100 ML/HR. WITH GTUBE IN PLACE, FEEDING HELD AT THIS TIME. SAFETY PRECAUTIONS IN PLACE. BED IN LOWEST LOCKED POSITION, HOB ELEVATED, SIDE RAILS UP X3, AND CALL LIGHT AND TABLE WITHIN REACH. ALL NEEDS MET AT THIS TIME.
[2022-08-05 20:00] VITALS: BP 159/46
[2022-08-05] MEDS: ATORVASTATIN 10 MG TABLET GT SCH (21:27)
[2022-08-05] MEDS: DOCUSATE SODIUM 100 MG CAPSULE PO SCH (21:27)
[2022-08-05] MEDS: VANCOMYCIN HCL 0.75 GM in IV D5W 250 ML IV SCH (23:20)
[2022-08-06] VITALS: BP_SYST 154; BP_SYST 164; BP_DIAS 61
[2022-08-06] MEDS: ALBUTEROL FS 2.5 MG/3 ML VIAL.NEB IH SCH ×4 (02:04→20:46)
[2022-08-06] MEDS: IV D5/0.45 NACL 1,000 ML IV SCH ×2 (03:54→14:21)
[2022-08-06 04:00] VITALS: BP 164/73
[2022-08-06] MEDS: CEFEPIME 2 GM in IV D5W 100 ML IV SCH ×3 (05:12→21:54)
[2022-08-06] MEDS: hydrALAZINE HCL IV 20 MG VIAL IV PRN ×2 (05:12→08:25)
[2022-08-06] MEDS: BLOOD SUGAR DIAGNOSTIC 1 EACH STRIP IN SCH ×3 (05:34→17:54)
[2022-08-06] MEDS: VANCOMYCIN HCL 0.75 GM in IV D5W 250 ML IV SCH ×2 (06:18→15:33)
[2022-08-06 06:26] LABS: CALCIUM, SERUM 8.3 mg/dL (8.5-10.1); CREATININE 0.4 mg/dL (0.6-1.3); IRON, SERUM 24 ug/dl (50-175); PHOSPHORUS 3.2 mg/dL (2.5-4.9); POTASSIUM 3.3 mmol/L (3.5-5.1); TOTAL IRON BINDING CAPACITY 222 ug/dl (250-450)
[2022-08-06 06:28] LABS: BASOPHILS # (AUTO) 0.1 K/uL (0.0-0.2); BASOPHILS % (AUTO) 1.2 % (0.0-2.0); EOSINOPHILS % (AUTO) 4.8 % (0.0-6.0); HEMATOCRIT 32 % (33-45); HEMOGLOBIN 10.6 g/dL (11.5-14.8); LYMPHOCYTES # (AUTO) 1.1 K/uL (0.8-4.8); LYMPHOCYTES % (AUTO) 16.4 % (20.0-44.0); MEAN CORPUSCULAR HGB CONC 33 g/dl (31.0-36.0); MEAN CORPUSCULAR VOLUME 87 fL (82-100); MONOCYTES # (AUTO) 0.6 K/uL (0.1-1.30); MONOCYTES % (AUTO) 8.5 % (2.0-12.0); NEUTROPHILS # (AUTO) 4.7 K/uL (1.8-8.9); NEUTROPHILS % (AUTO) 69.1 % (43.0-81.0); PLATELET COUNT (AUTO) 259 K/uL (150-450); RED BLOOD CELL COUNT(AUTO) 3.71 MIL/uL (4.0-5.2); WHITE BLOOD COUNT (AUTO) 6.8 K/uL (4.3-11.0)
--- NOTE | 2022-08-06 06:49 | NUR ---
FINANCIAL SALES ASSOCIATE CLOSING NOTE PT AWAKE IN BED. NON VERBAL. ON MECHANICAL VENT WITH ORDERED SETTINGS, TOLERATING WELL. NO SOB OR S/S OF RESPIRATORY DISTRESS. ON EXTERNAL SOCIAL MEDIA MANAGER READING SR 64 BPM. IV ACCESS LIANA ML, INTACT AND PATENT, RUNNING D5 1/2 NS @ 100 ML/HR. WITH GTUBE IN PLACE, FEEDING HELD AT THIS TIME. ALL DUE MEDS GIVEN ORDERED. TURNED AND REPOSITIONED Q2H. WOUND CARE RENDERED ORDERED. SAFETY PRECAUTIONS IN PLACE AT ALL TIMES. BED IN LOWEST LOCKED POSITION, HOB ELEVATED, SIDE RAILS UP X3, AND CALL LIGHT AND TABLE WITHIN REACH. ALL NEEDS MET AT THIS TIME AND WILL ENDORSE TO ONCOMING NURSE FOR EDWARD.
[2022-08-06] MEDS: LEVOTHYROXINE SODIUM 100 MCG TABLET GT SCH (07:30)
--- NOTE | 2022-08-06 07:42 | NUR ---
RN Opening Note. Non-Verbal pt, not able to assess patients mental status. Patient opens eyes and makes gestures when called by her name. Patient on air mattress, with vent in place as ordered, no signs of respiratory distress. IV running as ordered with no signs of infiltration. Patient looks comfortable and clean, no signs of distress or discomfort. All safety precautions taken, call light and table within reach, bed at lowest position.
[2022-08-06 08:00] VITALS: BP 143/47
[2022-08-06] MEDS: PANTOPRAZOLE 40 MG VIAL IV SCH (08:41)
[2022-08-06] MEDS: FUROSEMIDE 20 MG/2 ML VIAL IV SCH (08:41)
[2022-08-06] MEDS: KEPPRA 1500 MG in IV NS 100 ML IV SCH ×2 (08:59→21:14)
[2022-08-06] MEDS ORDERED: PANTOPRAZOLE 40 MG/PACK PACK GT SCH (09:00)
[2022-08-06] MEDS: FOLIC ACID 1 MG TABLET GT SCH (09:00)
[2022-08-06] MEDS: ASCORBIC ACID 500 MG TABLET GT SCH (09:00)
[2022-08-06] MEDS: CARVEDILOL 12.5 MG TABLET GT SCH ×2 (09:00→17:00)
[2022-08-06] MEDS: ACETAMINOPHEN 650 MG/20.3 ML UDC GT SCH ×2 (09:00→17:00)
[2022-08-06 09:15] LABS: FERRITIN 704 ng/mL (8-388)
[2022-08-06] MEDS: CHLORHEXIDINE GLUCONATE 15 ML UDC MM SCH ×2 (09:48→21:14)
[2022-08-06] MEDS: MUPIROCIN OINT 2% 22 GM TUBE NS SCH ×2 (09:49→21:15)
[2022-08-06] MEDS: POTASSIUM CL. PREMIX PERIPHER. 50 ML IV SCH ×2 (11:18→12:02)
[2022-08-06 16:11] VITALS: BP 132/73
--- NOTE | 2022-08-06 18:21 | NUR ---
RN Closing Note Patient Non-verbal. Not able to express her concerns. Patient shows no signs of discomfort or distress. Daughter at bedside providing lunchroom worker. GTube was repositioned, waiting on KUB results to restart feedings. Will endorse report to night nurse for continuity of care. Patient remained safe and stable throughput shift. Provided BP medication as ordered by physician. Some medications were non administered due to GTube placement. Will continue to monitor throughout shift and provide care as needed. All safety precautions taken, call light and table within reach, bed at lowest position.
[2022-08-06] MEDS ORDERED: DIATR MEGLU/DIATRIZOATE SODIUM 30 ML BOTTLE (GASTROGRAPHIN) ONE (18:51)
--- NOTE | 2022-08-06 19:30 | NUR ---
REVENUE INVESTIGATOR OPENING NOTE RECEIVED PT IN BED. DAUGHTER AT BEDSIDE. ON MECHANICAL VENT WITH ORDERED SETTINGS, TOLERATING WELL. NO SOB OR S/S OF RESPIRATORY DISTRESS. ON EXTERNAL KNIFE SETTER ASSEMBLER READING SB 60 BPM. IV ACCESS LIANA ML, INTACT AND PATENT, RUNNING D5 1/2 NS @ 100 ML/HR. WITH GTUBE IN PLACE, FEEDING HELD AT THIS TIME. SAFETY PRECAUTIONS IN PLACE. BED IN LOWEST LOCKED POSITION, HOB ELEVATED, SIDE RAILS UP X3, AND CALL LIGHT AND TABLE WITHIN REACH. ALL NEEDS MET AT THIS TIME.
[2022-08-06 20:00] VITALS: BP 148/68
[2022-08-06] MEDS: ATORVASTATIN 10 MG TABLET GT SCH (21:16)
[2022-08-06] MEDS: DOCUSATE SODIUM 100 MG CAPSULE PO SCH (21:16)
--- NOTE | 2022-08-06 23:56 | NUR ---
RN NOTE LAB HAS NOT BEEN ABLE TO PULL VANCO TROUGH DUE TO BEING A HARD STICK. MIDLINE NOT HAVING ANY BLOOD RETURN. LAB SENT ANOTHER CHIEF MAINTENANCE SUPERVISOR TO THE UNIT AT THIS TIME. STILL PENDING VANCO TROUGH.
[2022-08-07] VITALS: BP 132/57
[2022-08-07] MEDS: IV D5/0.45 NACL 1,000 ML IV SCH ×2 (00:17→08:40)
[2022-08-07] MEDS: BLOOD SUGAR DIAGNOSTIC 1 EACH STRIP IN SCH ×4 (00:33→17:47)
--- NOTE | 2022-08-07 00:55 | NUR ---
RN NOTE STILL PENDING VANCO TROUGH. FOLLOWED UP WITH LAB AND IT IS STILL PROCESSING. CHARGE NURSE JACQUES AWARE.
[2022-08-07] MEDS: ALBUTEROL FS 2.5 MG/3 ML VIAL.NEB IH SCH ×4 (01:05→20:27)
[2022-08-07] MEDS: VANCOMYCIN HCL 0.75 GM in IV D5W 250 ML IV SCH (01:14)
--- NOTE | 2022-08-07 01:21 | NUR ---
RN NOTE VANCO TROUGH 18. ADMINISTERED VANCO IV ORDERED. CHANGE NURSE JACQUES AWARE.
[2022-08-07] MEDS: GLUCERNA 1.2 1,000 ML BOTTLE NG PRN (02:58)
--- NOTE | 2022-08-07 02:59 | NUR ---
RN NOTE KUB RESULTS SHOW POSITIVE GTUBE PLACEMENT. GLUCERNA 1.2 RESTARTED PER MD ORDER @ 20 ML/HR UNTIL REACHING 55 ML/HR TOLERATED. CHARGE NURSE JACQUES DIXON.
[2022-08-07 04:00] VITALS: BP 143/67
[2022-08-07] MEDS: CEFEPIME 2 GM in IV D5W 100 ML IV SCH ×3 (05:00→21:27)
[2022-08-07] MEDS: INSULIN REGULAR, HUMAN 100 UNIT/ML 3 ML VIAL SQ PRN (05:18)
--- NOTE | 2022-08-07 06:39 | NUR ---
SPICE MIXER CLOSING NOTE PT AWAKE IN BED. NON VERBAL. ON MECHANICAL VENT WITH ORDERED SETTINGS, TOLERATING WELL. NO SOB OR S/S OF RESPIRATORY DISTRESS. ON EXTERNAL TOOL MACHINIST READING SR 64 BPM. IV ACCESS LIANA ML, INTACT AND PATENT, RUNNING D5 1/2 NS @ 100 ML/HR. WITH GTUBE IN PLACE, RUNNING GLUCERNA 1.2 @ 35 ML/HR. ALL DUE MEDS GIVEN ORDERED. TURNED AND REPOSITIONED Q2H. WOUND CARE RENDERED ORDERED. SAFETY PRECAUTIONS IN PLACE AT ALL TIMES. BED IN LOWEST LOCKED POSITION, HOB ELEVATED, SIDE RAILS UP X3, AND CALL LIGHT AND TABLE WITHIN REACH. ALL NEEDS MET AT THIS TIME AND WILL ENDORSE TO ONCOMING NURSE FOR EDWARD.
[2022-08-07 07:11] LABS: ALBUMIN 2.6 g/dL (3.4-5.0); BILIRUBIN,TOTAL 0.3 mg/dL (0.2-1.0); CALCIUM, SERUM 8.3 mg/dL (8.5-10.1); CREATININE 0.5 mg/dL (0.6-1.3)
--- NOTE | 2022-08-07 07:30 | NUR ---
RN Opening Note. Non-Verbal pt, not able to assess patients mental status. Patient opens eyes and makes gestures when called by her name. Patient sleeping with no signs of distress. Patient on air mattress, with vent in place as ordered, no signs of respiratory distress. IV running as ordered with no signs of infiltration. Patient looks comfortable and clean. All safety precautions taken, call light and table within reach, bed at lowest position.
[2022-08-07 08:00] VITALS: BP 146/66
[2022-08-07] MEDS: LEVETIRACETAM SOL (5 ML) 100 MG/ML UDC GT SCH ×2 (08:07→21:27)
[2022-08-07] MEDS: FOLIC ACID 1 MG TABLET GT SCH (08:07)
[2022-08-07] MEDS: CHLORHEXIDINE GLUCONATE 15 ML UDC MM SCH ×2 (08:07→21:27)
[2022-08-07] MEDS: FUROSEMIDE 20 MG/2 ML VIAL IV SCH (08:07)
[2022-08-07] MEDS: PANTOPRAZOLE 40 MG VIAL IV SCH (08:07)
[2022-08-07] MEDS: LEVOTHYROXINE SODIUM 100 MCG TABLET GT SCH (08:08)
[2022-08-07] MEDS: ASCORBIC ACID 500 MG TABLET GT SCH (08:08)
[2022-08-07] MEDS: CARVEDILOL 12.5 MG TABLET GT SCH ×2 (08:09→16:32)
[2022-08-07] MEDS: ACETAMINOPHEN 650 MG/20.3 ML UDC GT SCH ×2 (08:14→16:32)
[2022-08-07] MEDS: MUPIROCIN OINT 2% 22 GM TUBE NS SCH (08:40)
[2022-08-07] MEDS: VANCOMYCIN 500 MG in IV D5W 100ml IV SCH ×2 (09:56→16:32)
[2022-08-07] MEDS: POTASSIUM CHLORIDE 20 MEQ POWDER PACKET GT SCH (11:03)
[2022-08-07 15:54] VITALS: BP 120/37
--- NOTE | 2022-08-07 18:38 | NUR ---
RN Closing Note Patient Non-verbal. Not able to express her concerns. Patient shows no signs of discomfort or distress. Daughter at bedside providing direct care worker. Will endorse report to night nurse for continuity of care. Patient remained safe and stable throughput shift. Provided medication as ordered by physician. Will continue to monitor throughout shift and provide care as needed. All safety precautions taken, call light and table within reach, bed at lowest position.
--- NOTE | 2022-08-07 19:37 | NUR ---
BUSINESS ETHICS PROFESSOR OPENING NOTE RECEIVED PT IN BED. DAUGHTER AT BEDSIDE. ON MECHANICAL VENT WITH ORDERED SETTINGS, TOLERATING WELL. NO SOB OR S/S OF RESPIRATORY DISTRESS. ON EXTERNAL AUTOMATIC CASTING MACHINE OPERATOR READING SB 57 BPM. IV ACCESS LIANA ML SL, INTACT AND PATENT. WITH GTUBE IN PLACE RUNNING GLUCERNA 1.2 @ 55 ML/HR, TOLERATING WELL. SAFETY PRECAUTIONS IN PLACE. BED IN LOWEST LOCKED POSITION, HOB ELEVATED, SIDE RAILS UP X3, AND CALL LIGHT AND TABLE WITHIN REACH. ALL NEEDS MET AT THIS TIME.
[2022-08-07 20:00] VITALS: BP 138/57
[2022-08-07] MEDS: DOCUSATE SODIUM 100 MG CAPSULE PO SCH (21:28)
[2022-08-07] MEDS: ATORVASTATIN 10 MG TABLET GT SCH (22:06)
[2022-08-08] VITALS: BP 130/59
[2022-08-08] MEDS: VANCOMYCIN 500 MG in IV D5W 100ml IV SCH ×3 (00:10→17:49)
[2022-08-08] MEDS: BLOOD SUGAR DIAGNOSTIC 1 EACH STRIP IN SCH ×5 (00:22→23:15)
[2022-08-08] MEDS: ALBUTEROL FS 2.5 MG/3 ML VIAL.NEB IH SCH ×4 (01:33→20:29)
[2022-08-08 04:00] VITALS: BP 138/70
[2022-08-08] MEDS: CEFEPIME 2 GM in IV D5W 100 ML IV SCH ×3 (05:04→21:04)
[2022-08-08 06:05] LABS: BASOPHILS # (AUTO) 0.1 K/uL (0.0-0.2); BASOPHILS % (AUTO) 0.9 % (0.0-2.0); EOSINOPHILS % (AUTO) 5.6 % (0.0-6.0); HEMATOCRIT 30 % (33-45); HEMOGLOBIN 9.9 g/dL (11.5-14.8); LYMPHOCYTES # (AUTO) 1.5 K/uL (0.8-4.8); LYMPHOCYTES % (AUTO) 21.4 % (20.0-44.0); MEAN CORPUSCULAR HGB CONC 33 g/dl (31.0-36.0); MEAN CORPUSCULAR VOLUME 87 fL (82-100); MONOCYTES % (AUTO) 14.2 % (2.0-12.0); NEUTROPHILS % (AUTO) 57.9 % (43.0-81.0); PLATELET COUNT (AUTO) 219 K/uL (150-450); RED BLOOD CELL COUNT(AUTO) 3.43 MIL/uL (4.0-5.2); WHITE BLOOD COUNT (AUTO) 6.9 K/uL (4.3-11.0)
--- NOTE | 2022-08-08 06:38 | NUR ---
CUPROUS CHLORIDE OPERATOR CLOSING NOTE PT AWAKE IN BED. NON VERBAL. ON MECHANICAL VENT WITH ORDERED SETTINGS, TOLERATING WELL. NO SOB OR S/S OF RESPIRATORY DISTRESS. ON EXTERNAL MINE WEDGE SAWYER READING SB 56 BPM. IV ACCESS LIANA ML, INTACT AND PATENT. WITH GTUBE IN PLACE, RUNNING GLUCERNA 1.2 @ 55 ML/HR. ALL DUE MEDS GIVEN ORDERED. TURNED AND REPOSITIONED Q2H. WOUND CARE RENDERED ORDERED. SAFETY PRECAUTIONS IN PLACE AT ALL TIMES. BED IN LOWEST LOCKED POSITION, HOB ELEVATED, SIDE RAILS UP X3, AND CALL LIGHT AND TABLE WITHIN REACH. ALL NEEDS MET AT THIS TIME AND WILL ENDORSE TO ONCOMING NURSE FOR EDWARD.
--- NOTE | 2022-08-08 07:30 | NUR ---
STRATEGIC ACCOUNT MANAGER OPENING NOTE RECEIVED PATIENT ON BED ASLEEP. ON MECHANICAL VENT WITH ORDERED SETTINGS, TOLERATING WELL. NO SOB OR S/S OF RESPIRATORY DISTRESS. ON EXTERNAL SENIOR CARE PROVIDER READING SINUS RHYTHM AT 61BPM. WITH IV ACCESS AT THE LEFT UPPER ARM MIDLINE SALINE LOCKED, INTACT AND PATENT. WITH G-TUBE IN PLACED RUNNING GLUCERNA 1.2 @ 55 ML/HR, TOLERATING WELL. SAFETY PRECAUTIONS IN PLACE. BED IN LOWEST LOCKED POSITION, HOB ELEVATED, SIDE RAILS UP X3, AND CALL LIGHT AND TABLE WITHIN REACH. WILL CONTINUE TO MONITOR.
[2022-08-08 08:00] VITALS: BP 137/69
[2022-08-08 08:04] LABS: ALBUMIN 2.6 g/dL (3.4-5.0); BILIRUBIN,TOTAL 0.3 mg/dL (0.2-1.0); CALCIUM, SERUM 8.5 mg/dL (8.5-10.1); CREATININE 0.5 mg/dL (0.6-1.3); MAGNESIUM 2.2 mg/dL (1.8-2.4); PHOSPHORUS 3.1 mg/dL (2.5-4.9); POTASSIUM 3.9 mmol/L (3.5-5.1); TOTAL PROTEIN, SERUM 6.7 g/dL (6.4-8.2)
[2022-08-08] MEDS: ACETAMINOPHEN 650 MG/20.3 ML UDC GT SCH ×2 (08:07→16:59)
[2022-08-08] MEDS: LEVETIRACETAM SOL (5 ML) 100 MG/ML UDC GT SCH ×2 (08:07→21:02)
[2022-08-08] MEDS: CHLORHEXIDINE GLUCONATE 15 ML UDC MM SCH ×2 (08:07→21:02)
[2022-08-08] MEDS: CARVEDILOL 12.5 MG TABLET GT SCH ×2 (08:08→16:59)
[2022-08-08] MEDS: PANTOPRAZOLE 40 MG/PACK PACK GT SCH (08:08)
[2022-08-08] MEDS: POTASSIUM CHLORIDE 20 MEQ POWDER PACKET GT SCH (08:08)
[2022-08-08] MEDS: FUROSEMIDE 40 MG TABLET GT SCH (08:08)
[2022-08-08] MEDS: LEVOTHYROXINE SODIUM 100 MCG TABLET GT SCH (08:08)
[2022-08-08] MEDS: FOLIC ACID 1 MG TABLET GT SCH (08:08)
[2022-08-08] MEDS: ASCORBIC ACID 500 MG TABLET GT SCH (08:08)
[2022-08-08] MEDS: INSULIN REGULAR, HUMAN 100 UNIT/ML 3 ML VIAL SQ PRN ×2 (11:38→17:47)
--- NOTE | 2022-08-08 12:00 | NUR ---
RN NOTE PATIENT'S IV MIDLINE AT THE LEFT UPPER ARM WAS LEAKING AND INFILTRATED. IV LINE REMOVED. AWAITING FOR DUPLEX AT THE LEFT UPPER EXTREMITY RESULT BEFORE IV REINSERTION.
[2022-08-08] MEDS: GLUCERNA 1.2 1,000 ML BOTTLE NG PRN (13:11)
--- NOTE | 2022-08-08 14:28 | NUR ---
RN NOTE PATIENT IS HARD STICK. STILL AWAITING FOR IV MIDLINE INSERTION.
[2022-08-08 16:00] VITALS: BP 134/64
--- NOTE | 2022-08-08 18:40 | NUR ---
VICE PRESIDENT PRECISION MARKET INSIGHTS CLOSING NOTE PATIENT ON BED RESTING. ON MECHANICAL VENT WITH ORDERED SETTINGS, TOLERATING WELL. NO SOB OR S/S OF RESPIRATORY DISTRESS. ON EXTERNAL POWDERED SUGAR SUPERVISOR READING SINUS RHYTHM AT 66BPM. WITH IV ACCESS AT THE RIGHT HAND G22 SALINE LOCKED, INTACT AND PATENT. WITH G-TUBE IN PLACED RUNNING GLUCERNA 1.2 @ 55 ML/HR, TOLERATING WELL. DUE MEDS GIVEN. SAFETY PRECAUTIONS IN PLACE. BED IN LOWEST LOCKED POSITION, HOB ELEVATED, SIDE RAILS UP X3, AND CALL LIGHT AND TABLE WITHIN REACH. ALL NEEDS ATTENDED. WILL ENDORSE TO NEXT SHIFT FOR EDWARD.
--- NOTE | 2022-08-08 19:30 | NUR ---
OSTEOLOGIST NOTE RECEIVED PATIENT IN BED, WITH HOB ELEVATED, AWAKE WITH EYES CLOSED, DAUGHTER AT BEDSIDE. AFEBRILE AND NOT IN ANY FORM OF ACUTE DISTRESS. ON MECHANICAL VENT WITH ORDERED SETTINGS, TOLERATED WELL. WITH INTACT G TUBE WITH FEEDING OF GLUCERNA 1.2 AT 55ML/HR. WITH IV ACCESS ON R HAND 22G SL. SAFETY MEASURES IN PLACE. KEPT BED IN LOCKED AND IN LOW POSITION TO REDUCE INJURY. SIDE RAILS UP X2. CALL LIGHT WITHIN EASY REACH.
[2022-08-08 20:00] VITALS: BP 114/50
[2022-08-08] MEDS: ATORVASTATIN 10 MG TABLET GT SCH (21:02)
[2022-08-08] MEDS: DOCUSATE SODIUM 100 MG CAPSULE PO SCH (21:02)
[2022-08-09] VITALS: BP 134/52
[2022-08-09] MEDS: VANCOMYCIN 500 MG in IV D5W 100ml IV SCH ×3 (01:16→16:48)
--- NOTE | 2022-08-09 01:20 | NUR ---
WATER TESTER NOTE VANCO TROUGH DONE AND RESULTED- 18UG/ML. ADMINISTERED SCHEDULED IV VANCO ORDERED.
[2022-08-09] MEDS: ALBUTEROL FS 2.5 MG/3 ML VIAL.NEB IH SCH ×4 (01:37→20:50)
[2022-08-09 04:00] VITALS: BP 146/73
[2022-08-09] MEDS: CEFEPIME 2 GM in IV D5W 100 ML IV SCH ×3 (04:27→21:35)
[2022-08-09] MEDS: BLOOD SUGAR DIAGNOSTIC 1 EACH STRIP IN SCH ×3 (05:29→17:26)
[2022-08-09] MEDS: INSULIN REGULAR, HUMAN 100 UNIT/ML 3 ML VIAL SQ PRN ×3 (05:32→17:27)
--- NOTE | 2022-08-09 06:42 | NUR ---
ENTERTAINMENT CENTRE MANAGER CLOSING NOTE PATIENT IN BED, WITH HOB ELEVATED, ASLEEP BUT EASY TO AROUSE AND OPENS EYES. AFEBRILE AND NOT IN ANY FORM OF ACUTE DISTRESS. ON MECHANICAL VENT WITH ORDERED SETTINGS, TOLERATED WELL. WITH INTACT G TUBE WITH FEEDING OF GLUCERNA 1.2 AT 55ML/HR, RESTARTED FEEDING AT 0300 ORDERED, TOLERATED WELL. WITH IV ACCESS ON R HAND 22G SL. ON EXTERNAL MONITOR WITH CURRENT READING OF SR 61. MONITORED FOR ANY S/SX. OF HYPO/HYPERGLYCEMIA. ON IV ATB, MONITORED FOR ANY ADVERSE REACTION. SAFETY MEASURES IN PLACE. KEPT BED IN LOCKED AND IN LOW POSITION. SIDE RAILS UP X2. CALL LIGHT WITHIN EASY REACH. ALL NURSING NEEDS ATTENDED. ENDORSED TO INCOMING NURSE FOR CONTINUITY OF CARE.
[2022-08-09 06:50] LABS: BASOPHILS # (AUTO) 0.1 K/uL (0.0-0.2); BASOPHILS % (AUTO) 0.9 % (0.0-2.0); EOSINOPHILS % (AUTO) 4.5 % (0.0-6.0); HEMATOCRIT 28 % (33-45); HEMOGLOBIN 9.5 g/dL (11.5-14.8); LYMPHOCYTES # (AUTO) 1.1 K/uL (0.8-4.8); LYMPHOCYTES % (AUTO) 14.5 % (20.0-44.0); MEAN CORPUSCULAR HGB CONC 34 g/dl (31.0-36.0); MEAN CORPUSCULAR VOLUME 87 fL (82-100); MONOCYTES # (AUTO) 0.9 K/uL (0.1-1.30); MONOCYTES % (AUTO) 12.2 % (2.0-12.0); NEUTROPHILS # (AUTO) 4.9 K/uL (1.8-8.9); NEUTROPHILS % (AUTO) 67.9 % (43.0-81.0); PLATELET COUNT (AUTO) 221 K/uL (150-450); RED BLOOD CELL COUNT(AUTO) 3.25 MIL/uL (4.0-5.2); WHITE BLOOD COUNT (AUTO) 7.3 K/uL (4.3-11.0)
[2022-08-09 06:56] LABS: ALBUMIN 2.6 g/dL (3.4-5.0); BILIRUBIN,TOTAL 0.4 mg/dL (0.2-1.0); CALCIUM, SERUM 8.7 mg/dL (8.5-10.1); CREATININE 0.5 mg/dL (0.6-1.3); MAGNESIUM 2.1 mg/dL (1.8-2.4); PHOSPHORUS 3.1 mg/dL (2.5-4.9); POTASSIUM 3.8 mmol/L (3.5-5.1); TOTAL PROTEIN, SERUM 6.9 g/dL (6.4-8.2)
--- NOTE | 2022-08-09 07:30 | NUR ---
CURED MEATS SUPERVISOR OPENING NOTE RECEIVED PATIENT ON BED ASLEEP. ON MECHANICAL VENT WITH ORDERED SETTINGS, TOLERATING WELL. NO SOB OR S/S OF RESPIRATORY DISTRESS. ON EXTERNAL MOTOR VEHICLE ESCORT DRIVER READING SINUS RHYTHM AT 64BPM. WITH IV ACCESS AT THE LEFT UPPER ARM MIDLINE SALINE LOCKED, INTACT AND PATENT. WITH G-TUBE IN PLACED RUNNING GLUCERNA 1.2 @ 55 ML/HR, TOLERATING WELL. SAFETY PRECAUTIONS IN PLACE. BED IN LOWEST LOCKED POSITION, HOB ELEVATED, SIDE RAILS UP X3, AND CALL LIGHT AND TABLE WITHIN REACH. WILL CONTINUE TO MONITOR.
[2022-08-09 08:00] VITALS: BP 128/69
[2022-08-09] MEDS: FUROSEMIDE 40 MG TABLET GT SCH (08:40)
[2022-08-09] MEDS: CHLORHEXIDINE GLUCONATE 15 ML UDC MM SCH ×2 (08:40→21:57)
[2022-08-09] MEDS: LEVETIRACETAM SOL (5 ML) 100 MG/ML UDC GT SCH ×2 (08:40→21:57)
[2022-08-09] MEDS: ACETAMINOPHEN 650 MG/20.3 ML UDC GT SCH ×2 (08:40→16:48)
[2022-08-09] MEDS: LEVOTHYROXINE SODIUM 100 MCG TABLET GT SCH (08:40)
[2022-08-09] MEDS: PANTOPRAZOLE 40 MG/PACK PACK GT SCH (08:40)
[2022-08-09] MEDS: FOLIC ACID 1 MG TABLET GT SCH (08:40)
[2022-08-09] MEDS: POTASSIUM CHLORIDE 20 MEQ POWDER PACKET GT SCH (08:40)
[2022-08-09] MEDS: ASCORBIC ACID 500 MG TABLET GT SCH (08:40)
[2022-08-09] MEDS: CARVEDILOL 12.5 MG TABLET GT SCH ×2 (08:41→16:48)
[2022-08-09 16:00] VITALS: BP 133/59
--- NOTE | 2022-08-09 17:19 | NUR ---
RECEIVED PATIENT ON VENT SETTINGS OF AC 14, VT 450, FIO2 40%, PEEP5. HAS A TRACH PORTEX 7 CUFFED. AIRWAY PATENT AND SECURE. INLINE HHN TXS LIGIA WELL WITH NO ADVERSE REACTION NOTED. Q2 VENT CHECK, SUCTION PRN. AMBU BAG AT BEDSIDE. VENT PLUGGED INTO RED OUTLET. ALARMS SET AND AUDIBLE. SMALL TO MODERATE YELLOW THICK SECRETIONS NOTED.
--- NOTE | 2022-08-09 18:16 | NUR ---
RN NOTE COVID TEST PERFORMED PER DOCTOR'S ORDER AND SUBMITTED TO THE LAB.
--- NOTE | 2022-08-09 18:23 | NUR ---
ELECTROLOG OPERATOR CLOSING NOTE PATIENT ON BED AWAKE. ON MECHANICAL VENT WITH ORDERED SETTINGS, TOLERATING WELL. NO SOB OR S/S OF RESPIRATORY DISTRESS. ON EXTERNAL ASSISTANT BUSINESS MANAGER READING SINUS RHYTHM AT 62BPM. WITH IV ACCESS AT THE RIGHT HAND G22 SALINE LOCKED, INTACT AND PATENT. WITH G-TUBE IN PLACED RUNNING GLUCERNA 1.2 @ 55 ML/HR, TOLERATING WELL. DUE MEDS GIVEN. SAFETY PRECAUTIONS IN PLACE. BED IN LOWEST LOCKED POSITION, HOB ELEVATED, SIDE RAILS UP X3, AND CALL LIGHT AND TABLE WITHIN REACH. WILL ENDORSE TO NEXT SHIFT FOR EDWARD.
[2022-08-09 20:00] VITALS: BP_SYST 141; BP_SYST 60; BP_DIAS 32; BP_DIAS 48
--- NOTE | 2022-08-09 20:12 | NUR ---
PRINTED CIRCUIT BOARDS PLASMA ETCHER OPENING NOTES: RECEIVED PATIENT AWAKE IN BED, OPEN EYES, ACCOMPANIED, BY FAMILY, BED IN LOW POSITION, ACCOMPANIED BY FAMILY, CALL LIGHTS WITHIN REACH, NO COMPLAIN OF PAIN AND DISCOMFORT AT THIS TIME, ON MECHANICAL VENT SATURATING WELL, ON G TUBE FEEDING OF GLUCERNA 1.2@55ML/HR INFUSING WELL, INCONTINENT ON PUREWICK, ON TELE [id number], KEPT CLEAN AND DRY ALL NEEDS MET WILL CONTINUE TO MONITOR.
[2022-08-09] MEDS: DOCUSATE SODIUM 100 MG CAPSULE PO SCH (21:58)
[2022-08-09] MEDS: ATORVASTATIN 10 MG TABLET GT SCH (21:58)
[2022-08-10] VITALS: BP 143/60
[2022-08-10] MEDS: INSULIN REGULAR, HUMAN 100 UNIT/ML 3 ML VIAL SQ PRN ×2 (00:34→06:28)
[2022-08-10] MEDS: BLOOD SUGAR DIAGNOSTIC 1 EACH STRIP IN SCH ×4 (00:34→17:39)
--- NOTE | 2022-08-10 00:35 | NUR ---
RN NOTES: BLOOD SUGAR-132/ 2 UNITS INSULIN GIVEN
[2022-08-10] MEDS: ALBUTEROL FS 2.5 MG/3 ML VIAL.NEB IH SCH ×4 (01:40→19:26)
[2022-08-10] MEDS: GLUCERNA 1.2 1,000 ML BOTTLE NG PRN (03:04)
[2022-08-10 06:01] LABS: BASOPHILS # (AUTO) 0.1 K/uL (0.0-0.2); BASOPHILS % (AUTO) 0.6 % (0.0-2.0); HEMATOCRIT 30 % (33-45); HEMOGLOBIN 9.9 g/dL (11.5-14.8); LYMPHOCYTES # (AUTO) 1.3 K/uL (0.8-4.8); LYMPHOCYTES % (AUTO) 12.8 % (20.0-44.0); MEAN CORPUSCULAR HGB CONC 33 g/dl (31.0-36.0); MEAN CORPUSCULAR VOLUME 89 fL (82-100); MONOCYTES # (AUTO) 1.3 K/uL (0.1-1.30); MONOCYTES % (AUTO) 12.2 % (2.0-12.0); NEUTROPHILS # (AUTO) 7.2 K/uL (1.8-8.9); NEUTROPHILS % (AUTO) 70.4 % (43.0-81.0); PLATELET COUNT (AUTO) 200 K/uL (150-450); RED BLOOD CELL COUNT(AUTO) 3.41 MIL/uL (4.0-5.2); WHITE BLOOD COUNT (AUTO) 10.3 K/uL (4.3-11.0)
[2022-08-10 06:11] LABS: ALBUMIN 2.6 g/dL (3.4-5.0); BILIRUBIN,TOTAL 0.4 mg/dL (0.2-1.0); CALCIUM, SERUM 8.7 mg/dL (8.5-10.1); CREATININE 0.5 mg/dL (0.6-1.3); MAGNESIUM 2.2 mg/dL (1.8-2.4); PHOSPHORUS 3.3 mg/dL (2.5-4.9); TOTAL PROTEIN, SERUM 7.1 g/dL (6.4-8.2)
--- NOTE | 2022-08-10 06:28 | NUR ---
RN NOTES: BLOOD SUGAR- 131/ 2 UNITS INSULIN GIVEN PER SLIDING SCALE.
--- NOTE | 2022-08-10 06:32 | NUR ---
HOME HEALTH TRAVEL PT CLOSING NOTES: PATIENT SLEEP IN BED COMFORTABLY AROUSABLE TO VERBAL STIMULI, BED IN LOW POSITION CALL LIGHTS WITHIN REACH, ON MECHANICAL VENT TO REMAIN HOB AT 45 DEGREE, ON GTUBE FEEDING INFUSING WELL, REPOSITION Q2H, ON TELE [id number]- 50'S TO 70 NO SYMPTOMS WAS OBSERVED, PATIENT KEPT CLEAN AND DRY ALL NEEDS MET, ENDORSE TO INCOMING SHIFT.
--- NOTE | 2022-08-10 07:46 | NUR ---
RN OPENING NOTE PATIENT RECEIVED IN BED, OBTUNDED, ABLE TO RESPONDS PHYSICAL STIMULI. RESPIRATORY EVEN AND UNLABORED ON VENTILATOR WITH TRACH, NO S/S OF BLEEDING OBSERVED FROM TRACHEOSTOMY. SKIN IS WARM TO TOUCH, KEEP CLEAN/DRY. REPOSITION PROVIDED. KEPT ELEVATED HOB FOR ASPIRATION PRECAUTION/ENSURE AIRWAY, AND LOWEST BED POSITIONED FOR SAFETY. CALL LIGHT WITHIN REACH, WILL CONTINUE TO MONITOR.
[2022-08-10 08:00] VITALS: BP 144/46
[2022-08-10] MEDS: ASCORBIC ACID 500 MG TABLET GT SCH (08:57)
[2022-08-10] MEDS: CARVEDILOL 12.5 MG TABLET GT SCH ×2 (08:58→17:39)
[2022-08-10] MEDS: CHLORHEXIDINE GLUCONATE 15 ML UDC MM SCH ×2 (08:58→21:07)
[2022-08-10] MEDS: POTASSIUM CHLORIDE 20 MEQ POWDER PACKET GT SCH (08:58)
[2022-08-10] MEDS: LEVETIRACETAM SOL (5 ML) 100 MG/ML UDC GT SCH ×2 (08:58→21:07)
[2022-08-10] MEDS: ACETAMINOPHEN 650 MG/20.3 ML UDC GT SCH ×2 (08:58→17:39)
[2022-08-10] MEDS: PANTOPRAZOLE 40 MG/PACK PACK GT SCH (08:58)
[2022-08-10] MEDS: FUROSEMIDE 40 MG TABLET GT SCH (08:59)
[2022-08-10] MEDS: LEVOTHYROXINE SODIUM 100 MCG TABLET GT SCH (08:59)
[2022-08-10] MEDS: FOLIC ACID 1 MG TABLET GT SCH (08:59)
[2022-08-10] MEDS ORDERED: FURO40TA5 GT (10:37)
[2022-08-10] MEDS ORDERED: POTA20PA3 GT (10:37)
[2022-08-10 12:00] VITALS: BP 115/50
[2022-08-10 16:00] VITALS: BP 142/78
--- NOTE | 2022-08-10 18:26 | NUR ---
CLOSING NOTE PATIENT RESTING IN BED RESTING. IN NO ACUTE DISTRESS OBSERVED. RESPIRATORY EVEN AND UNLABORED ON VENTILATOR WITH TRACH. SKIN IS WARM TO TOUCH KEEP CLEAN/DRY. G-TUBE FEEDING RUNNING AT 55 ML/HR AND NO RESIDUAL OBSERVED. KEPT ELEVATED HOB FOR ENSURE AIRWAY/ASPIRATION PRECAUTION, AND LOWEST BED POSITION FOR SAFETY. PATIENT'S DTR REQUESTED THE MEDICAL RECORD AND SIGNED ON MEDICAL RELEASE FORM. CALL LIGHT WITHIN REACH, WILL ENDORSE TIME RECORDER.
--- NOTE | 2022-08-10 19:35 | NUR ---
RT Pt recvd on current vent settings of AC rr14 vt 450 fio2 40 peep +5 and lamin well. Neb tx given and lamin well. Suction PRN, no SOB or respiratory distress noted at this time. SPo2 >92%. Vent is plugged into red outlet with alarms on and audible. Spare trach and ambu bag at bedside. Daughter Pily at bedside.
--- NOTE | 2022-08-10 19:45 | NUR ---
RN OPENING NOTES RECEIVED PT IN BED, AWAKE, WITH DAUGHTER AT BEDSIDE. AOx1, RESPONDS TO VERBAL STIMULI. ON MECHANICAL VENTILATOR AND TOLERATING WELL. NO SOB NOTED. NO S/SX OF RESPIRATORY DISTRESS NOTED. TELE MONITOR DETECTS SINUS RHYTHM. IV ACCESS IN R HAND #24G. IV IS INTACT, PATENT, AND FLUSHING WELL. SAFETY PRECAUTIONS IN PLACE: BED IN LOWEST, LOCKED POSITION, SIDERAILS UPx2, AND BRAKES ON. TABLE AND CALL LIGHT WITHIN REACH. ALL NEEDS MET AND QUESTIONS ANSWERED AT THIS TIME.
[2022-08-10 20:00] VITALS: BP 133/42
[2022-08-10] MEDS: ATORVASTATIN 10 MG TABLET GT SCH (21:07)
[2022-08-10] MEDS: DOCUSATE SODIUM LIQ 100 MG/10 ML UDC GT SCH (21:14)
[2022-08-11] VITALS (7 sets, daily range): BP systolic 107–149; BP diastolic 50–105
[2022-08-11] MEDS: BLOOD SUGAR DIAGNOSTIC 1 EACH STRIP IN SCH ×4 (00:32→17:54)
[2022-08-11] MEDS: INSULIN REGULAR, HUMAN 100 UNIT/ML 3 ML VIAL SQ PRN ×3 (00:33→12:16)
[2022-08-11] MEDS: ALBUTEROL FS 2.5 MG/3 ML VIAL.NEB IH SCH ×4 (01:57→19:50)
[2022-08-11] MEDS: GLUCERNA 1.2 1,000 ML BOTTLE NG PRN (05:21)
--- NOTE | 2022-08-11 06:46 | NUR ---
RN CLOSING NOTES PT IN BED, ASLEEP, AWAKENS TO VERBAL STIMULI. AOx1, RESPONDS TO VERBAL STIMULI. ON MECHANICAL VENTILATOR AND TOLERATING WELL. NO SOB NOTED. NO S/SX OF RESPIRATORY DISTRESS NOTED. TELE MONITOR DETECTS SINUS RHYTHM. IV ACCESS IN R HAND #24G. IV IS INTACT, PATENT, AND FLUSHING WELL. ALL ORDERS CARRIED OUT. ALL NEEDS MET. PT KEPT CLEAN AND DRY. SAFETY PRECAUTIONS IN PLACE: BED IN LOWEST, LOCKED POSITION, SIDERAILS UPx2, AND BRAKES ON. TABLE AND CALL LIGHT WITHIN REACH. WILL ENDORSE TO ONCOMING SHIFT FOR EDWARD.
--- NOTE | 2022-08-11 07:35 | NUR ---
RN OPENING NOTE PATIENT RECEIVED IN BED, OBTUNDED, ABLE TO RESPONDS PHYSICAL STIMULI. RESPIRATORY EVEN AND NONLABORED ON MECHANICAL VENTILATOR WITH TRACH, NO S/S OF BLEEDING OBSERVED FROM TRACHEOSTOMY. SKIN IS WARM TO TOUCH, KEEP CLEAN/DRY. TELE MONITOR DETECTS SINUS RHYTHM. NO S/S OF RESPIRATOR DISTRESS/SOB OF NOTED. IV ACCESS IN R HAND #24G. IV IS INTACT, PATENT, AND FLUSHING WELL. WELL, ON G TUBE FEEDING OF GLUCERNA 1.2@55ML/HR INFUSING WELL, INCONTINENT ON PUREWICK. REPOSITION PROVIDED. KEPT ELEVATED HOB FOR ASPIRATION PRECAUTION/ENSURE AIRWAY, AND LOWEST BED POSITIONED FOR SAFETY, SIDERAILS UPx2. CALL LIGHT WITHIN REACH, WILL CONTINUE TO MONITOR AND ASSIST.
[2022-08-11] MEDS: LEVOTHYROXINE SODIUM 100 MCG TABLET GT SCH (08:36)
[2022-08-11] MEDS: CHLORHEXIDINE GLUCONATE 15 ML UDC MM SCH ×2 (08:36→21:02)
[2022-08-11] MEDS: POTASSIUM CHLORIDE 20 MEQ POWDER PACKET GT SCH (08:36)
[2022-08-11] MEDS: ACETAMINOPHEN 650 MG/20.3 ML UDC GT SCH ×2 (08:36→17:54)
[2022-08-11] MEDS: LEVETIRACETAM SOL (5 ML) 100 MG/ML UDC GT SCH ×2 (08:36→21:02)
[2022-08-11] MEDS: FOLIC ACID 1 MG TABLET GT SCH (08:36)
[2022-08-11] MEDS: PANTOPRAZOLE 40 MG/PACK PACK GT SCH (08:36)
[2022-08-11] MEDS: FUROSEMIDE 40 MG TABLET GT SCH (08:37)
[2022-08-11] MEDS: ASCORBIC ACID 500 MG TABLET GT SCH (08:37)
[2022-08-11] MEDS: CARVEDILOL 12.5 MG TABLET GT SCH ×2 (09:05→17:54)
--- NOTE | 2022-08-11 16:00 | NUR ---
RN NOTE RECEIVED REPORT KYLE/RN FOR EDWARD.
--- NOTE | 2022-08-11 16:00 | NUR ---
RN NOTE REPORT GIVEN TO ZEKE MENDES FOR EDWARD.
--- NOTE | 2022-08-11 18:00 | NUR ---
CLOSING NOTE PATIENT RESTING IN BED RESTING. IN NO ACUTE DISTRESS OBSERVED. FAMILY MEMBER AT BED SIDE. RESPIRATORY EVEN AND UNLABORED ON VENTILATOR WITH TRACH. SKIN IS WARM TO TOUCH KEEP CLEAN/DRY. G-TUBE FEEDING RUNNING AT 55 ML/HR AND NO RESIDUAL OBSERVED. KEPT ELEVATED HOB FOR ENSURE AIRWAY/ASPIRATION PRECAUTION, AND LOWEST BED POSITION FOR SAFETY. CALL LIGHT WITHIN REACH, WILL ENDORSE OUTREACH AND EDUCATION SOCIAL WORKER.
--- NOTE | 2022-08-11 19:38 | NUR ---
RN OPENING NOTES RECEIVED PT IN BED, AWAKE, WITH DAUGHTER AT BEDSIDE. AOx1, RESPONDS TO VERBAL STIMULI. ON MECHANICAL VENTILATOR AND TOLERATING WELL. NO SOB NOTED. NO S/SX OF RESPIRATORY DISTRESS NOTED. TELE MONITOR DETECTS SINUS RHYTHM. IV ACCESS IN R HAND #24G. IV IS INTACT, PATENT, AND FLUSHING WELL. SAFETY PRECAUTIONS IN PLACE: BED IN LOWEST, LOCKED POSITION, SIDERAILS UPx2, AND BRAKES ON. TABLE AND CALL LIGHT WITHIN REACH. ALL NEEDS MET AND QUESTIONS ANSWERED AT THIS TIME. Addendum: 08/11/22 at 1939 by TETE MCDONOUGH RN FAMILY MEMBER IS AT BEDSIDE, NOT DAUGHTER.
[2022-08-11] MEDS: ATORVASTATIN 10 MG TABLET GT SCH (21:02)
[2022-08-11] MEDS: DOCUSATE SODIUM LIQ 100 MG/10 ML UDC GT SCH (21:02)
[2022-08-12] MEDS: INSULIN REGULAR, HUMAN 100 UNIT/ML 3 ML VIAL SQ PRN ×3 (00:38→17:52)
[2022-08-12] MEDS: BLOOD SUGAR DIAGNOSTIC 1 EACH STRIP IN SCH ×4 (00:38→17:50)
[2022-08-12] MEDS: ALBUTEROL FS 2.5 MG/3 ML VIAL.NEB IH SCH ×3 (01:32→14:00)
[2022-08-12 04:31] VITALS: BP 144/57
[2022-08-12] MEDS: GLUCERNA 1.2 1,000 ML BOTTLE NG PRN (06:08)
--- NOTE | 2022-08-12 08:07 | NUR ---
RN OPENING NOTE PATIENT RECEIVED IN BED, OBTUNDED, ABLE TO RESPONDS PHYSICAL STIMULI. RESPIRATORY EVEN AND NONLABORED ON MECHANICAL VENTILATOR WITH TRACH, NO S/S OF BLEEDING OBSERVED FROM TRACHEOSTOMY. SKIN IS WARM TO TOUCH, KEEP CLEAN/DRY. ON TELEMETRY NOW SHOWING NSR @ 64 BPM. NO S/S OF RESPIRATORY DISTRESS/SOB NOTED. IV ACCESS IN R HAND #24G. IV IS INTACT, PATENT, AND FLUSHING WELL. PATIENT ON G TUBE FEEDING OF GLUCERNA 1.2@55ML/HR INFUSING WELL, INCONTINENT ON PUREWICK. REPOSITION PROVIDED. KEPT ELEVATED HOB FOR ASPIRATION PRECAUTION/ENSURE AIRWAY, AND LOWEST BED POSITIONED FOR SAFETY, SIDERAILS UPx2. CALL LIGHT WITHIN REACH, WILL CONTINUE TO MONITOR .
[2022-08-12] MEDS: LEVOTHYROXINE SODIUM 100 MCG TABLET GT SCH (08:12)
[2022-08-12 08:31] VITALS: BP 126/56
[2022-08-12] MEDS: PANTOPRAZOLE 40 MG/PACK PACK GT SCH (08:46)
[2022-08-12] MEDS: ACETAMINOPHEN 650 MG/20.3 ML UDC GT SCH ×2 (08:47→17:24)
[2022-08-12] MEDS: LEVETIRACETAM SOL (5 ML) 100 MG/ML UDC GT SCH (08:47)
[2022-08-12] MEDS: POTASSIUM CHLORIDE 20 MEQ POWDER PACKET GT SCH (08:47)
[2022-08-12] MEDS: CARVEDILOL 12.5 MG TABLET GT SCH ×2 (08:55→17:00)
[2022-08-12] MEDS: FUROSEMIDE 40 MG TABLET GT SCH (08:55)
[2022-08-12] MEDS: FOLIC ACID 1 MG TABLET GT SCH (08:55)
[2022-08-12] MEDS: CHLORHEXIDINE GLUCONATE 15 ML UDC MM SCH (08:56)
[2022-08-12] MEDS: ASCORBIC ACID 500 MG TABLET GT SCH (08:56)
[2022-08-12 16:19] VITALS: BP 104/60
[2022-08-12 17:00] VITALS: BP 100/56
--- NOTE | 2022-08-12 17:53 | NUR ---
maintenance shop welder Note Received orders for discharge. Patient is at baseline level of alertness, tracking with eyes when her name is spoken. Patient is breathing evenly on ventilator via tracheostomy without any signs of distress. Vital signs are stable, afebrile. IV access removed with catheter tip intact. Pressure dressing applied ti former IV site. No signs of bleeding noted at IV site. Telemetry box removed last showing sinus bradycardia to NSR. Purewick removed and skin care applied to periarea. Patient received by ambulance EMT staff /nurse for safe transport to receiving facility, [facility], via gurney to ambulance in the company of her daughter.
== END 2022-08-12 18:22 | DRG 207 ==
LOC: ER 09:22 → TELE 13:46
PROVIDERS: ADMIT Registered Nurse; ATTEND Nurse Practitioner Acute Care
PROC: 5A1955Z Respiratory Ventilation, Greater than 96 Consecutive Hours (ICD-10-PCS; principal; 2022-07-26)
PROC: 05HA33Z Insertion of Infusion Device into Left Brachial Vein, Percutaneous Approach (ICD-10-PCS; 2022-07-27)
PROC: 0BBC3ZX Excision of Right Upper Lung Lobe, Percutaneous Approach, Diagnostic (ICD-10-PCS; 2022-08-05)
DX: J95.01 Hemorrhage from tracheostomy stoma (principal); J96.10 Chronic respiratory failure, unspecified whether with hypoxia or hypercapnia; Z99.11 Dependence on respirator [ventilator] status; G93.1 Anoxic brain damage, not elsewhere classified; I42.9 Cardiomyopathy, unspecified; J90 Pleural effusion, not elsewhere classified; C34.91 Malignant neoplasm of unspecified part of right bronchus or lung; K94.23 Gastrostomy malfunction; K94.22 Gastrostomy infection; L03.311 Cellulitis of abdominal wall; J98.11 Atelectasis; R04.89 Hemorrhage from other sites in respiratory passages; I48.0 Paroxysmal atrial fibrillation; Z85.3 Personal history of malignant neoplasm of breast; Z20.822 Contact with and (suspected) exposure to COVID-19; R13.10 Dysphagia, unspecified; I50.9 Heart failure, unspecified; I11.0 Hypertensive heart disease with heart failure; Z86.73 Personal history of transient ischemic attack (TIA), and cerebral infarction without residual deficits; Z85.841 Personal history of malignant neoplasm of brain; Z90.11 Acquired absence of right breast and nipple; E78.00 Pure hypercholesterolemia, unspecified; E03.9 Hypothyroidism, unspecified; Z88.1 Allergy status to other antibiotic agents; Z88.0 Allergy status to penicillin; Z79.82 Long term (current) use of aspirin; Z79.51 Long term (current) use of inhaled steroids; Z79.01 Long term (current) use of anticoagulants; Z79.899 Other long term (current) drug therapy; Z86.718 Personal history of other venous thrombosis and embolism; Z68.35 Body mass index [BMI] 35.0-35.9, adult; Z86.711 Personal history of pulmonary embolism; Z86.72 Personal history of thrombophlebitis; E66.01 Morbid (severe) obesity due to excess calories; Y84.8 Other medical procedures as the cause of abnormal reaction of the patient, or of later complication, without mention of misadventure at the time of the procedure; Y92.129 Unspecified place in nursing home as the place of occurrence of the external cause; D72.821 Monocytosis (symptomatic); E88.09 Other disorders of plasma-protein metabolism, not elsewhere classified; K46.9 Unspecified abdominal hernia without obstruction or gangrene; N94.89 Other specified conditions associated with female genital organs and menstrual cycle; R56.9 Unspecified convulsions; Y84.9 Medical procedure, unspecified as the cause of abnormal reaction of the patient, or of later complication, without mention of misadventure at the time of the procedure; Y82.8 Other medical devices associated with adverse incidents; K80.20 Calculus of gallbladder without cholecystitis without obstruction; D50.9 Iron deficiency anemia, unspecified
CPT/HCPCS: 31720; 36410; 36415; 71045-TC; 74018; 74178; 77012-TC; 80048-TC; 80053-TC; 80061-TC; 80076-TC; 80202-TC; 81001; 82378; 82607-TC; 82728-TC; 82784; 82962-TC; 83540-TC; 83615-TC; 83690-TC; 83735-TC; 84100-TC; 84155; 84165; 84439-TC; 84443-TC; 84484-TC; 85025-TC; 85385-TC; 85610-TC; 85730-TC; 86300; 86304; 86334; 86850-TC; 87070-TC; 87081-TC; 87186-TC; 93930-TC; 93970-TC; 94002-TC; 94003-TC; 94760-TC; 94799-TC; A4623; A6403; C9113; C9803; G0378; J0360; J0692; J1815; J1940; J1953; J2270; J2916; J3010; J3370; J3480; J3490; J7030; J7040; J7042; J7050; J7060; Q9963; Q9967

== ENCOUNTER 2023-01-24 16:54 | Inpatient (IN) | payer MEDICARE, OTHER ==
[~2023-01-24] VITALS: Ht 154.9 cm; Wt 76.7 kg
[~2023-01-24 16:54] MED LIST changes: -AMLO-213 GT; -APIX2.5T GT; +ASCO500C17 GT; +ASPI-1169 GT; +ATOR20TA GT; +CARV12.5 GT; -CLON0.5T4 GT; -CRAN3875 GT; +CRAN400C GT; -FERR220S2 GT; +FOLI0.8C GT; +FURO40TA5 GT; -LACT-209 GT; +LORA-259 GT; -LORA10TA7 GT; -MELA5TAB GT; -MULT-24 GT; +NALO1DIS2 IJ; +NUT.237L30 GT; +ONDA4TAB5 GT; -POLY15DR31 EACHEYE; -SCOP1PAT17 TD
--- NOTE | 2023-01-24 17:05 | NUR ---
BIB [facility] FROM [facility], BLOOD NOTED IN G-TUBE. PLACED IN BED, NON VERBAL, VENTILATOR DEPENDENT, RESP. TECH AT BEDSIDE ATTACHED TO VENTILATOR WITH SETTING A/C VC FIO2- 50, VT- 450, RATE- 14, PEEP- 5 SATURATING AT 100%.
--- NOTE | 2023-01-24 17:51 | NUR ---
MALCOLM MARCOS [phone]
[2023-01-24] MEDS ORDERED: PANTOPRAZOLE 80 MG in IV NS 0.9% 500 ML IV ONE (18:00)
[2023-01-24] MEDS ORDERED: PANTOPRAZOLE 80 MG in IV NS 0.9% 100 ML IV ONE (18:00)
[2023-01-24] MEDS ORDERED: IV NS 0.9% 1,000 ML BAG IV ONE (18:00)
[2023-01-24] MEDS ORDERED: SULF1TAB48 GT (18:27)
[2023-01-24] MEDS ORDERED: ANAS1TAB50 GT (18:27)
[2023-01-24] MEDS ORDERED: MULT-447 GT (18:27)
[2023-01-24] MEDS ORDERED: APIX2.5T GT (18:27)
[2023-01-24] MEDS ORDERED: POLY17PO4 GT (18:27)
[2023-01-24] MEDS ORDERED: TRAM50TA2 GT (18:27)
[2023-01-24] MEDS ORDERED: FERR300L GT (18:27)
[2023-01-24] MEDS ORDERED: ASCO500T10 GT (18:27)
[2023-01-24] MEDS ORDERED: LACT10SO3 GT (18:27)
[2023-01-24] MEDS ORDERED: SOD62.5V IV (18:27)
[2023-01-24] MEDS ORDERED: OMEG1CAP GT (18:27)
[2023-01-24] MEDS ORDERED: NALO0.4D4 IV (18:27)
[2023-01-24] MEDS ORDERED: OXIC30CR3 TP (18:27)
[2023-01-24] MEDS ORDERED: POTA10CA43 GT (18:27)
[2023-01-24] MEDS ORDERED: CRAN425C6 GT (18:27)
[2023-01-24] MEDS ORDERED: OMEP40CA21 GT (18:27)
[2023-01-24] MEDS ORDERED: LACT1CAP71 GT (18:27)
[2023-01-24] MEDS ORDERED: AMIN30LI2 GT (18:27)
--- NOTE | 2023-01-24 18:30 | NUR ---
CONTACTED NURSING PIG MACHINE OPERATOR FOR MIDLINE AND NEIDA VARGAS WILL COME COMMENTED.
[2023-01-24 18:43] LABS: BASOPHILS # (AUTO) 0.1 K/uL (0.0-0.2); BASOPHILS % (AUTO) 1.2 % (0.0-2.0); EOSINOPHILS % (AUTO) 8.6 % (0.0-6.0); HEMATOCRIT 29 % (33-45); HEMOGLOBIN 9.6 g/dL (11.5-14.8); LYMPHOCYTES # (AUTO) 1.6 K/uL (0.8-4.8); MEAN CORPUSCULAR HGB CONC 33 g/dl (31.0-36.0); MEAN CORPUSCULAR VOLUME 86 fL (82-100); MONOCYTES % (AUTO) 13.1 % (2.0-12.0); NEUTROPHILS # (AUTO) 4.1 K/uL (1.8-8.9); NEUTROPHILS % (AUTO) 55.1 % (43.0-81.0); PLATELET COUNT (AUTO) 272 K/uL (150-450); RED BLOOD CELL COUNT(AUTO) 3.38 MIL/uL (4.0-5.2); WHITE BLOOD COUNT (AUTO) 7.4 K/uL (4.3-11.0)
--- NOTE | 2023-01-24 19:00 | NUR ---
PATIENT TAKEN TO CT VIA HILARIA
[2023-01-24 19:07] LABS: CALCIUM, SERUM 9.3 mg/dL (8.5-10.1); CARBON DIOXIDE 25 mmol/L (21-32); CHLORIDE 102 mmol/L (98-107); CREATININE 0.5 mg/dL (0.6-1.3); GLUCOSE 144 mg/dL (74-106); POTASSIUM 4.2 mmol/L (3.5-5.1); SODIUM SERUM 138 mmol/L (136-145); UREA NITROGEN, BLOOD 18 mg/dL (7-18)
[2023-01-24 19:12] LABS: ALANINE AMINOTRANSFERASE 21 U/L (12-78); ALBUMIN 3.2 g/dL (3.4-5.0); ALKALINE PHOSPHATASE 95 U/L (46-116); ASPARTATE AMINOTRANSFERASE 19 U/L (15-37); BILIRUBIN,DIRECT 0.1 mg/dL (0.0-0.2); BILIRUBIN,TOTAL 0.3 mg/dL (0.2-1.0); LIPASE 66 U/L (73-393); TOTAL PROTEIN, SERUM 8.1 g/dL (6.4-8.2)
--- NOTE | 2023-01-24 20:04 | NUR ---
SWAB FOR COVID19 SENT TO LAB
--- NOTE | 2023-01-24 20:17 | NUR ---
CALLED [facility] PAGED ESTRELLITA ALLEN
--- NOTE | 2023-01-24 21:46 | NUR ---
MIDLINE DONE BY ESTRELLITA ALLEN THEATRICAL RIGGER
--- NOTE | 2023-01-24 21:47 | NUR ---
MIDLINE INSITU AT L UPPER ARM
[2023-01-24] MEDS ORDERED: Z GUARD REMEDY 4 OZ OINT TP PRN (23:30)
[2023-01-24] MEDS ORDERED: ACETAMINOPHEN 650 MG/SUPP.RECT RC PRN (23:30)
[2023-01-24] MEDS ORDERED: ONDANSETRON HCL/PF 4 MG/2 ML VIAL IVP PRN (23:30)
--- NOTE | 2023-01-24 23:32 | NUR ---
BODY FLUID FOR OCULT BLOOD SENT TO LAB
--- NOTE | 2023-01-24 23:38 | NUR ---
REPORT GIVEN TO ZEKE CARO
--- NOTE | 2023-01-25 00:05 | NUR ---
RN NOTES ADMITTED A 67 Y/O FEMALE PATIENT FROM ER WITH DIAGNOSIS FO GI BLEED AND GT MALFUNCTION. VITAL SIGNS TAKEN AND RECORDED AFEBRILE. ON TRACH CONNECTED TO MV WITH PRESCRIBED SETTINGS. SAFELY TRANSFER TO BED. COMPLETE BODY ASSESSMENT DONE. IV ACCESS AT LIANA MIDLINE PATENT FLUSHES WELL. WITH GT INTACT WITH DRESSING WITH TAPE NO BLEEDING NOTED AT THE DRESSING AT THIS TIME. HOOKED TO STONEWORK TRACER. HOB ELEVATED. CALL LIGHT WITHIN REACH. WILL CLOSELY [id number] THE PATIENT
--- NOTE | 2023-01-25 00:11 | NUR ---
TRANSFERRED PT TO 105 WITH RT AND ACLS PROTOCOL
[2023-01-25] MEDS ORDERED: LEVETIRACETAM SOL (5 ML) 100 MG/ML UDC GT SCH (01:00)
[2023-01-25] MEDS: IV D5/0.45 NACL 1,000 ML IV PRN ×2 (01:24→15:16)
[2023-01-25] MEDS ORDERED: LACTULOSE 10 G/15 ML UDC (PYXIS) GT PRN (01:30)
[2023-01-25 04:00] VITALS: BP 108/57
[2023-01-25] MEDS ORDERED: DEXTROSE 50%-WATER 50 ML DISP.SYRIN IV PRN (05:00)
[2023-01-25] MEDS: BLOOD SUGAR DIAGNOSTIC 1 EACH STRIP IN SCH ×3 (06:12→18:02)
--- NOTE | 2023-01-25 06:42 | NUR ---
RN NOTES PATIENT REMAINS STABLE NO SIGNIFICANT CHANGES NO BLEEDING ON GT SITE. ON TRACH CONNECTED TO MV WITH PRESCRIBED SETTINGS TOLERATING WELL. PATIENT STILL ON NPO. ALL NEEDS ATTENDED. WILL ENDORSED TO MORNING SHIFT FOR EDWARD
--- NOTE | 2023-01-25 07:00 | NUR ---
RN NOTE RECEIVED PATIENT IN BED RESTING OBTUNDED,OPEN EYES,ON MECHANICAL VENT,SETTING PRESCRIBED,ON G-TUBE MALFUNCTIONING AND CLAMPED,NO FEEDING, NPO,IV SITE IS ON LEFT UPPER ARM MIDLINE INTACT PATENT,ON D5 1/2NS 75CC/HR,INCONTINENT BOWEL/BLADDER,SAFETY MEASURE IMPLEMENT BED IN LOW POSITION AND LOCKED,HEAD OFT THE BED ELEVATED CONTINUE TO MONITOR.
[2023-01-25 07:05] LABS: BASOPHILS # (AUTO) 0.1 K/uL (0.0-0.2); BASOPHILS % (AUTO) 1.5 % (0.0-2.0); EOSINOPHILS % (AUTO) 9.5 % (0.0-6.0); HEMATOCRIT 26 % (33-45); LYMPHOCYTES # (AUTO) 1.1 K/uL (0.8-4.8); LYMPHOCYTES % (AUTO) 21.9 % (20.0-44.0); MEAN CORPUSCULAR HGB CONC 32 g/dl (31.0-36.0); MEAN CORPUSCULAR VOLUME 89 fL (82-100); MONOCYTES # (AUTO) 0.7 K/uL (0.1-1.30); MONOCYTES % (AUTO) 15.2 % (2.0-12.0); NEUTROPHILS # (AUTO) 2.5 K/uL (1.8-8.9); NEUTROPHILS % (AUTO) 51.9 % (43.0-81.0); PLATELET COUNT (AUTO) 230 K/uL (150-450); RED BLOOD CELL COUNT(AUTO) 2.86 MIL/uL (4.0-5.2); WHITE BLOOD COUNT (AUTO) 4.8 K/uL (4.3-11.0)
[2023-01-25 07:13] LABS: CALCIUM, SERUM 8.2 mg/dL (8.5-10.1); CREATININE 0.4 mg/dL (0.6-1.3); POTASSIUM 3.7 mmol/L (3.5-5.1)
[2023-01-25 07:16] LABS: MAGNESIUM 2.2 mg/dL (1.8-2.4); PHOSPHORUS 2.6 mg/dL (2.5-4.9)
[2023-01-25] MEDS: KEPPRA 1500 MG in IV NS 100 ML IV SCH ×2 (07:27→20:18)
[2023-01-25] MEDS: LEVOTHYROXINE SODIUM 100 MCG TABLET GT SCH (07:28)
[2023-01-25 07:30] LABS: THYROID STIMULATING HORMONE 3.245 uIU/mL (0.358-3.74)
[2023-01-25 08:00] VITALS: BP 129/64
[2023-01-25] MEDS: LACTOBACILLUS RHAMNOSUS GG 1 EACH CAP.SPRINK GT SCH (08:12)
[2023-01-25] MEDS: FERROUS SULFATE UDC 300 MG/5 ML UDC GT SCH ×3 (08:12→16:46)
[2023-01-25] MEDS: CARVEDILOL 12.5 MG TABLET GT SCH ×2 (08:12→16:46)
[2023-01-25] MEDS: ANASTROZOLE 1 MG TABLET GT SCH (08:12)
[2023-01-25] MEDS: PROSOURCE / PROSTAT (PYXIS) 30 ML UDC GT SCH (08:13)
[2023-01-25] MEDS: FOLIC ACID 1 MG TABLET GT SCH (08:13)
[2023-01-25] MEDS: MULTIVIT W/MINERALS 1 TAB TABLET GT SCH (08:25)
[2023-01-25] MEDS: ASCORBIC ACID 500 MG TABLET GT SCH (08:25)
[2023-01-25] MEDS ORDERED: FUROSEMIDE 20 MG TABLET GT SCH (09:00)
[2023-01-25] MEDS ORDERED: FUROSEMIDE 40 MG/4 ML VIAL IV SCH (09:00)
[2023-01-25] MEDS: PANTOPRAZOLE 40 MG VIAL IV SCH ×2 (09:04→21:58)
[2023-01-25] MEDS: CHLORHEXIDINE GLUCONATE 15 ML UDC MM SCH ×2 (09:04→21:59)
[2023-01-25 12:00] VITALS: BP 142/36
[2023-01-25 16:00] VITALS: BP 152/36
[2023-01-25] MEDS ORDERED: hydrALAZINE HCL IV 20 MG VIAL IV PRN (18:00)
[2023-01-25 18:21] LABS: OCCULT BLOOD STOOL NEGATIVE (NEGATIVE)
--- NOTE | 2023-01-25 18:41 | NUR ---
RN NOTE PATIENT REMAINS ON OBTUNDED,ON G-TUBE CLAMPED,ON MECHANICAL VENT,NO SOB NOT ACUTE DISTRESS NOTED,NPO,HELD ALL G-TUBE MEDS,IV MEDS GIVEN,TURNED AND REPOSITIONED EVERY 2 HOURS,KEPT CLEAN AND DRY ALL THE TIME,KEPT COMFORTABLE,KEPT HEAD OF THE BED ELEVATED ALL NEEDS MET,DAUGHTER IS BED SIDE,ENDORSE NEXT COMING SHIFT FOR CONTINUATION OF CARE.
--- NOTE | 2023-01-25 19:30 | NUR ---
RN NOTES RECEIVED REPORT FROM MORNING RN. PATIENT A/O X1 RESPONSIVE TO VERBAL STIMULI. WITH IV ACCESS AT LIANA MIDLINE PATENT FLUSHES WELL NO INFILTRATION NOTED. ON TRACH CONNECTED TO MV WITH PRESCRIBED SETTINGS SATING 96% NO SOB NO DISTRESS NOTED BREATHING EVEN AND UNLABORED FAMILY AT BEDSIDE. GT NOTED LEAKING WITH PINKISH DRAINAGE. ALL SAFETY MEASURES IN PLACE. HOB ELEVATED. CALL LIGHT WITHIN REACH. WILL CLOSELY MONITOR THE PATIENT
[2023-01-25 20:00] VITALS: BP 146/88
[2023-01-25] MEDS: MORPHINE SULFATE INJ 2 MG/ML DISP.SYRIN IV PRN (21:56)
[2023-01-25] MEDS: ATORVASTATIN 10 MG TABLET GT SCH (22:00)
[2023-01-26] VITALS: BP 148/51
[2023-01-26] MEDS: BLOOD SUGAR DIAGNOSTIC 1 EACH STRIP IN SCH ×5 (00:37→23:54)
[2023-01-26 04:00] VITALS: BP 140/80
[2023-01-26] MEDS: IV D5/0.45 NACL 1,000 ML IV PRN ×2 (05:44→18:41)
[2023-01-26 06:48] LABS: BASOPHILS # (AUTO) 0.1 K/uL (0.0-0.2); BASOPHILS % (AUTO) 2.2 % (0.0-2.0); EOSINOPHILS % (AUTO) 12.8 % (0.0-6.0); HEMATOCRIT 27 % (33-45); HEMOGLOBIN 8.4 g/dL (11.5-14.8); LYMPHOCYTES # (AUTO) 1.1 K/uL (0.8-4.8); LYMPHOCYTES % (AUTO) 29.2 % (20.0-44.0); MEAN CORPUSCULAR HGB CONC 32 g/dl (31.0-36.0); MEAN CORPUSCULAR VOLUME 88 fL (82-100); MONOCYTES # (AUTO) 0.6 K/uL (0.1-1.30); MONOCYTES % (AUTO) 16.3 % (2.0-12.0); NEUTROPHILS # (AUTO) 1.4 K/uL (1.8-8.9); NEUTROPHILS % (AUTO) 39.5 % (43.0-81.0); PLATELET COUNT (AUTO) 244 K/uL (150-450); RED BLOOD CELL COUNT(AUTO) 3.01 MIL/uL (4.0-5.2); WHITE BLOOD COUNT (AUTO) 3.6 K/uL (4.3-11.0)
--- NOTE | 2023-01-26 06:53 | NUR ---
RN NOTES PATIENT REMAINS STABLE NO SIGNIFICANT CHANGES NO BLEEDING ON GT SITE. ON TRACH CONNECTED TO MV WITH PRESCRIBED SETTINGS TOLERATING WELL. PATIENT STILL ON NPO. ALL NEEDS ATTENDED. REPOSITION PATIENT Q2H. WILL ENDORSED TO MORNING SHIFT FOR EDWARD
[2023-01-26 07:13] LABS: THYROID STIMULATING HORMONE 3.499 uIU/mL (0.358-3.74)
[2023-01-26] MEDS: LEVOTHYROXINE SODIUM 100 MCG TABLET GT SCH (07:30)
--- NOTE | 2023-01-26 07:35 | NUR ---
RN OPENING NOTE RECEIVED PATIENT IN BED, A/OX1. ON TELE MONITOR THAT READS SR 66, RESTING OBTUNDED,OPEN EYES,ON MECHANICAL VENT,SETTING PRESCRIBED,ON G-TUBE MALFUNCTIONING AND CLAMPED,NO FEEDING, NPO,IV SITE IS ON LEFT UPPER ARM MIDLINE INTACT PATENT,ON D5 1/2NS 75CC/HR,INCONTINENT BOWEL/BLADDER,SAFETY MEASURE IMPLEMENT BED IN LOW POSITION AND LOCKED,HEAD OFT THE BED ELEVATED CONTINUE TO MONITOR.
[2023-01-26 07:56] LABS: BAND % (MANUAL) 1 % (0.0-5.0); CALCIUM, SERUM 8.7 mg/dL (8.5-10.1); CREATININE 0.4 mg/dL (0.6-1.3); EOSINOPHILS % (MANUAL) 13 % (0-4); LYMPHOCYTES % (MANUAL) 30 % (16-48); MONOCYTES % (MANUAL) 8 % (0-11.0); NEUTROPHILS % (MANUAL) 48 (42-76); POTASSIUM 3.7 mmol/L (3.5-5.1)
[2023-01-26] MEDS: KEPPRA 1500 MG in IV NS 100 ML IV SCH ×2 (08:27→20:06)
[2023-01-26] MEDS: PANTOPRAZOLE 40 MG VIAL IV SCH ×2 (08:58→21:13)
[2023-01-26] MEDS: FUROSEMIDE 40 MG/4 ML VIAL IV SCH (08:58)
[2023-01-26] MEDS: MORPHINE SULFATE INJ 2 MG/ML DISP.SYRIN IV PRN (08:59)
[2023-01-26] MEDS: ASCORBIC ACID 500 MG TABLET GT SCH (09:00)
[2023-01-26] MEDS: MULTIVIT W/MINERALS 1 TAB TABLET GT SCH (09:00)
[2023-01-26] MEDS: LACTOBACILLUS RHAMNOSUS GG 1 EACH CAP.SPRINK GT SCH (09:00)
[2023-01-26] MEDS: CARVEDILOL 12.5 MG TABLET GT SCH ×2 (09:00→16:21)
[2023-01-26] MEDS: FERROUS SULFATE UDC 300 MG/5 ML UDC GT SCH ×3 (09:00→16:21)
[2023-01-26] MEDS: PROSOURCE / PROSTAT (PYXIS) 30 ML UDC GT SCH (09:00)
[2023-01-26] MEDS: CHLORHEXIDINE GLUCONATE 15 ML UDC MM SCH ×2 (09:00→21:13)
[2023-01-26] MEDS: FOLIC ACID 1 MG TABLET GT SCH (09:00)
[2023-01-26] MEDS: ANASTROZOLE 1 MG TABLET GT SCH (09:00)
[2023-01-26 11:05] VITALS: BP 150/60
[2023-01-26 12:59] VITALS: BP 140/76
[2023-01-26 16:59] VITALS: BP 122/63
--- NOTE | 2023-01-26 18:21 | NUR ---
RN CLOSING NOTE PATIENT IN BED, A/OX1 WITH THE DAUGHTER AT BEDSIDE. ON TELE MONITOR WITH CURRENT READING SR 62 , RESTING OBTUNDED,OPEN EYES,ON MECHANICAL VENT,SETTING PRESCRIBED,ON G-TUBE MALFUNCTIONING AND CLAMPED,NO FEEDING, NPO,IV SITE IS ON LEFT UPPER ARM MIDLINE INTACT PATENT, NO BLEEDING NOTED, MINIMAL CLEAR DISCHARGE NOTED. ON D5 1/2NS 75CC/HR,INCONTINENT BOWEL/BLADDER. NO SIGNIFICANT CHANGES NOTED ALL THROUGHOUT THE SHIFT. AWAITS GI CONSULT. SAFETY MEASURE IMPLEMENT BED IN LOW POSITION AND LOCKED,HEAD OF THE BED ELEVATED. ENDORSED TO NIGHT NURSE.
--- NOTE | 2023-01-26 19:39 | NUR ---
RN OPENING NOTE RECEIVED PATIENT IN BED WITH EYES OPEN NON VERBAL,OBTUNDED,ON VENT ASSEST LIGAI WELL NO SIGN SOB/DISTRESS NOTED,G-TUBE MALFUNCTIONING AND CLAMPED,IV SITE IS ON LEFT UPPER ARM MIDLINE WITH D5 1/2NS 75CC/HR INFUSING WELL.SAFETY MEASURE IMPLEMENT BED IN LOW POSITION AND LOCKED,CALL LIGHT WITHIN REACH,WILL CONTINUE TO MONITOR.
[2023-01-26 20:00] VITALS: BP 115/54
[2023-01-26] MEDS: ATORVASTATIN 10 MG TABLET GT SCH (21:13)
[2023-01-26] MEDS: INSULIN REGULAR, HUMAN 100 UNIT/ML 3 ML VIAL SQ PRN (23:53)
[2023-01-27] VITALS: BP 139/49
[2023-01-27 04:00] VITALS: BP 138/74
[2023-01-27] MEDS: BLOOD SUGAR DIAGNOSTIC 1 EACH STRIP IN SCH ×4 (05:13→23:53)
--- NOTE | 2023-01-27 06:22 | NUR ---
RN CLOSING NOTE; PATIENT IN BED WITH EYES OPEN NON VERBAL,OBTUNDED,ON VENT ASSEST LIGIA WELL SAT 98%,NO SIGN SOB/DISTRESS NOTED,NO SIGN OF PAIN/DISCOMFORT DURING SHIFT,G-TUBE MALFUNCTIONING AND CLAMPED,IV SITE IS ON LEFT UPPER ARM MIDLINE WITH D5 1/2NS 75CC/HR INFUSING WELL.,DUE MEDS GIVEN ORDER,ALL NEEDS ATTENDED,PUREWICK IN PLACE OUTPUT 500ML,SAFETY MEASURE IMPLEMENT BED IN LOW POSITION AND LOCKED,CALL LIGHT WITHIN REACH,WILL ENDORSED TO NEXT SHIFT,
[2023-01-27] MEDS: LEVOTHYROXINE SODIUM 100 MCG TABLET GT SCH (07:30)
--- NOTE | 2023-01-27 07:30 | NUR ---
FOOD CHEMIST AM NOTE RECEIVED PATIENT IN BED, OBTUNDED, WITH PORTEX 7 TRACH TO MECHANICAL VENT, SETTING ORDERED AC 12 TV 450 FIO2 35% PEEP 5, BREATHING EVEN AND UNLABORED, NO SOB, NO DISTRESS, SR HR 72 ON MONITOR, NO SIGNS OF PAIN OR GRIMACINGS. IV ACCESS TO LEFT FOOT 22G, LIANA MIDLINE WITH D51/2 NS AT 75 ML INFUSING. SITE CLEAR. NPO GT CLAMPED FOR NOW. NO BLEEDING. FOR DR. DOMINGO TO SEE.ON DIAPERS, NO SKIN ISSUES. PUREWICK IN PLACE, SAFETY MEASURES IN PLACE, HOB UP 30 DEG. SAFETY MEASURE IMPLEMENT BED IN LOW POSITION AND LOCKED,WILL TURN AND REPOSITION Q 2 HOURS. CONTINUE TO MONITOR.
[2023-01-27 08:00] VITALS: BP 149/77
[2023-01-27] MEDS: KEPPRA 1500 MG in IV NS 100 ML IV SCH ×2 (08:16→20:28)
[2023-01-27] MEDS: ANASTROZOLE 1 MG TABLET GT SCH (08:17)
[2023-01-27] MEDS: LACTOBACILLUS RHAMNOSUS GG 1 EACH CAP.SPRINK GT SCH (08:17)
[2023-01-27] MEDS: CARVEDILOL 12.5 MG TABLET GT SCH ×2 (08:17→17:34)
[2023-01-27] MEDS: FOLIC ACID 1 MG TABLET GT SCH (08:18)
[2023-01-27] MEDS: FERROUS SULFATE UDC 300 MG/5 ML UDC GT SCH ×3 (08:18→17:34)
[2023-01-27] MEDS: ASCORBIC ACID 500 MG TABLET GT SCH (08:18)
[2023-01-27] MEDS: MULTIVIT W/MINERALS 1 TAB TABLET GT SCH (08:18)
[2023-01-27] MEDS: PROSOURCE / PROSTAT (PYXIS) 30 ML UDC GT SCH (08:18)
[2023-01-27 08:22] LABS: CALCIUM, SERUM 8.4 mg/dL (8.5-10.1); CREATININE 0.4 mg/dL (0.6-1.3); POTASSIUM 3.5 mmol/L (3.5-5.1)
[2023-01-27 08:30] LABS: BASOPHILS # (AUTO) 0.1 K/uL (0.0-0.2); BASOPHILS % (AUTO) 1.4 % (0.0-2.0); HEMATOCRIT 27 % (33-45); HEMOGLOBIN 8.7 g/dL (11.5-14.8); LYMPHOCYTES # (AUTO) 2.3 K/uL (0.8-4.8); LYMPHOCYTES % (AUTO) 34.3 % (20.0-44.0); MEAN CORPUSCULAR HGB CONC 32 g/dl (31.0-36.0); MEAN CORPUSCULAR VOLUME 90 fL (82-100); MONOCYTES # (AUTO) 0.8 K/uL (0.1-1.30); NEUTROPHILS # (AUTO) 2.8 K/uL (1.8-8.9); NEUTROPHILS % (AUTO) 42.3 % (43.0-81.0); PLATELET COUNT (AUTO) 264 K/uL (150-450); RED BLOOD CELL COUNT(AUTO) 3.04 MIL/uL (4.0-5.2); WHITE BLOOD COUNT (AUTO) 6.7 K/uL (4.3-11.0)
[2023-01-27] MEDS: FUROSEMIDE 40 MG/4 ML VIAL IV SCH (08:32)
[2023-01-27] MEDS: CHLORHEXIDINE GLUCONATE 15 ML UDC MM SCH ×2 (08:32→21:09)
[2023-01-27] MEDS: PANTOPRAZOLE 40 MG VIAL IV SCH ×2 (08:32→21:09)
--- NOTE | 2023-01-27 08:36 | NUR ---
RN NOTES DR. VARGAS AT BEDSIDE, ASSESSED GT SITE. NO BLEEDING. PER HIM DC IVF AND RESUME GT FEEDING.
[2023-01-27] MEDS ORDERED: GLUCERNA 1.2 1,000 ML BOTTLE NG PRN (09:00)
[2023-01-27 12:00] VITALS: BP 137/92
[2023-01-27] MEDS: GLUCERNA 1.2 1,000 ML BOTTLE NG PRN (13:47)
[2023-01-27 16:00] VITALS: BP 156/82
[2023-01-27 16:07] LABS: *SPE A/G RATIO 0.7 (0.7-1.7); *SPE ALPHA-1-GLOBULIN 0.3 g/dL (0.0-0.4); *SPE BETA GLOBULIN 1.1 g/dL (0.7-1.3); *SPE M-SPIKE Not Observed g/dL (Not Observed); CANCER AG, 125 81.1 U/mL (0.0-38.1); CANCER AG, 15-3 19.5 U/mL (0.0-25.0)
[2023-01-27] MEDS: METOCLOPRAMIDE HCL 10 MG/2 ML VIAL IV SCH (18:56)
--- NOTE | 2023-01-27 19:30 | NUR ---
RN NOTES ALL NEEDS MET AT THIS TIME. PM CARE DONE EARLIER. TURNED AND RESPOSITIONED Q 2 HOURS GTF AT 25 ML/HR GOAL IS 55 ML/HR FOR [address] VARGAS THAT GT SITE IS LEAKING. NEW ORDER RECEIVED REGLAN 5 MG IV TID. CARRIED OUT. ENDORSED TO NEXT SHIFT FOR EDWARD
--- NOTE | 2023-01-27 19:40 | NUR ---
RN OPENING NOTES: RECEIVED PATIENT IN BED, OBTUNDED. ON TRACH TO MECHANICAL VENT SETTING WITH PORTEX 7: AC 12 TV 450 FIO2 35% PEEP 5. BREATHING EVEN AND UNLABORED. IV ACCESS ON LEFT FOOT# 22G, LIANA MIDLINE INTACT AND PATENT. NO /S INFILTRATIONS. GTUBE FEEDING WELL TOLERATED. FEEDING RUNNING GLUCERNA AT 25 CC/HR AND GOAL IS TO INCREASE 55CC/HR. NO RESIDUAL PUREWICK IN PLACE, DRAINING BY GRAVITY. ALL SAFETY MEASURES IN PLACE. HOB ELEVATED. BED IN LOWEST POSITION AND LOCKED. SIDE RAILS UP X3, PLACE CALL LIGHT IN REACH. WILL CONTINUE TO MONITOR
[2023-01-27 20:00] VITALS: BP 128/56
[2023-01-27] MEDS: ATORVASTATIN 10 MG TABLET GT SCH (21:09)
[2023-01-27] MEDS: INSULIN REGULAR, HUMAN 100 UNIT/ML 3 ML VIAL SQ PRN (23:53)
--- NOTE | 2023-01-27 23:54 | NUR ---
RN NOTES: PT'S BLOOD SUGAR 107. NO COVERAGE NEEDED. NO S/S OF HYPER/HYPOGLYCEMIA. WILL CONTINUE TO MONITOR
[2023-01-28] VITALS: BP 132/58
[2023-01-28 04:00] VITALS: BP 132/77
[2023-01-28] MEDS: BLOOD SUGAR DIAGNOSTIC 1 EACH STRIP IN SCH ×4 (05:12→23:40)
[2023-01-28] MEDS: INSULIN REGULAR, HUMAN 100 UNIT/ML 3 ML VIAL SQ PRN ×3 (05:13→23:43)
--- NOTE | 2023-01-28 05:14 | NUR ---
RN NOTES: PT'S BLOOD SUGAR 123. NO COVERAGE NEEDED. NO S/S OF HYPER/HYPOGLYCEMIA. WILL CONTINUE TO MONITOR
[2023-01-28 06:07] LABS: IMMUNOGLOBULIN A, SERUM 339 mg/dL (87-352); IMMUNOGLOBULIN G, SERUM 1549 mg/dL (586-1602); IMMUNOGLOBULIN M, SERUM 106 mg/dL (26-217)
--- NOTE | 2023-01-28 06:42 | NUR ---
RN CLOSING NOTES: PATIENT IN BED, OBTUNDED. ON TRACH TO MECHANICAL VENT SETTING WITH PORTEX 7: AC 12 TV 450 FIO2 35% PEEP 5. BREATHING EVEN AND UNLABORED. IV ACCESS ON LEFT FOOT# 22G, LIANA MIDLINE INTACT AND PATENT. NO /S INFILTRATIONS. GTUBE FEEDING WELL TOLERATED. GT FEEDING RUNNING GLUCERNA AT 30CC/HR AND GOAL IS TO INCREASE 55CC/HR. NO RESIDUAL NOTED. PUREWICK IN PLACE, DRAINING BY GRAVITY. ALL DUE MEDS GIVEN ORDERED. ALL SAFETY MEASURES IN PLACE. HOB ELEVATED. BED IN LOWEST POSITION AND LOCKED. SIDE RAILS UP X3, PLACE CALL LIGHT IN REACH. WILL ENDORSE TO MORNING SHIFT NURSE.
--- NOTE | 2023-01-28 07:07 | NUR ---
FISH WARDEN OPENING NOTES: RECEIVED PATIENT IN BED, OBTUNDED. ON TRACH WITH VENT. BREATHING EVEN AND UNLABORED. IV ACCESS ON LEFT FOOT# 22G, LIANA MIDLINE INTACT AND PATENT. NO /S INFILTRATIONS. GTUBE FEEDING WELL TOLERATED. FEEDING RUNNING GLUCERNA AT 30CC/HR AND GOAL IS TO INCREASE 55CC/HR. NO RESIDUAL PUREWICK IN PLACE, DRAINING BY GRAVITY. ALL SAFETY MEASURES IN PLACE. HOB ELEVATED. BED IN LOWEST POSITION AND LOCKED. SIDE RAILS UP X3, PLACE CALL LIGHT IN REACH. WILL CONTINUE TO MONITOR
[2023-01-28 07:35] LABS: BASOPHILS # (AUTO) 0.1 K/uL (0.0-0.2); BASOPHILS % (AUTO) 1.3 % (0.0-2.0); EOSINOPHILS % (AUTO) 5.4 % (0.0-6.0); HEMATOCRIT 28 % (33-45); HEMOGLOBIN 9.1 g/dL (11.5-14.8); LYMPHOCYTES # (AUTO) 1.4 K/uL (0.8-4.8); LYMPHOCYTES % (AUTO) 25.2 % (20.0-44.0); MEAN CORPUSCULAR HGB CONC 33 g/dl (31.0-36.0); MEAN CORPUSCULAR VOLUME 87 fL (82-100); MONOCYTES # (AUTO) 0.6 K/uL (0.1-1.30); NEUTROPHILS # (AUTO) 3.2 K/uL (1.8-8.9); NEUTROPHILS % (AUTO) 57.1 % (43.0-81.0); PLATELET COUNT (AUTO) 293 K/uL (150-450); RED BLOOD CELL COUNT(AUTO) 3.17 MIL/uL (4.0-5.2); WHITE BLOOD COUNT (AUTO) 5.6 K/uL (4.3-11.0)
[2023-01-28 07:50] LABS: CREATININE 0.4 mg/dL (0.6-1.3); POTASSIUM 3.4 mmol/L (3.5-5.1)
[2023-01-28 08:00] VITALS: BP 133/69
[2023-01-28] MEDS: FUROSEMIDE 40 MG/4 ML VIAL IV SCH (08:48)
[2023-01-28] MEDS: ASCORBIC ACID 500 MG TABLET GT SCH (08:48)
[2023-01-28] MEDS: MULTIVIT W/MINERALS 1 TAB TABLET GT SCH (08:48)
[2023-01-28] MEDS: ANASTROZOLE 1 MG TABLET GT SCH (08:48)
[2023-01-28] MEDS: KEPPRA 1500 MG in IV NS 100 ML IV SCH ×2 (08:48→20:53)
[2023-01-28] MEDS: FERROUS SULFATE UDC 300 MG/5 ML UDC GT SCH ×3 (08:48→16:10)
[2023-01-28] MEDS: FOLIC ACID 1 MG TABLET GT SCH (08:48)
[2023-01-28] MEDS: PANTOPRAZOLE 40 MG VIAL IV SCH ×2 (08:48→20:54)
[2023-01-28] MEDS: LACTOBACILLUS RHAMNOSUS GG 1 EACH CAP.SPRINK GT SCH (08:48)
[2023-01-28] MEDS: CHLORHEXIDINE GLUCONATE 15 ML UDC MM SCH ×2 (08:48→20:54)
[2023-01-28] MEDS: CARVEDILOL 12.5 MG TABLET GT SCH ×2 (08:48→16:11)
[2023-01-28] MEDS: METOCLOPRAMIDE HCL 10 MG/2 ML VIAL IV SCH ×3 (08:49→16:10)
[2023-01-28] MEDS: LEVOTHYROXINE SODIUM 100 MCG TABLET GT SCH (08:54)
[2023-01-28] MEDS: PROSOURCE / PROSTAT (PYXIS) 30 ML UDC GT SCH (08:54)
[2023-01-28] MEDS ORDERED: POTASSIUM CHLORIDE 20 MEQ POWDER PACKET NG SCH (11:00)
[2023-01-28] MEDS ORDERED: IV NS 0.9% 250 ML IV ONE (11:17)
[2023-01-28] MEDS ORDERED: IOHEXOL-350 100 ML VIAL IV ONE (11:17)
[2023-01-28] MEDS ORDERED: CT SWABBABLE VALVE TRANS SET 1 EA INFUS.SET MC ONE (11:17)
[2023-01-28 12:00] VITALS: BP 132/71
[2023-01-28 16:00] VITALS: BP 133/62
--- NOTE | 2023-01-28 18:26 | NUR ---
RN CLOSING NOTES: PATIENT IN BED, OBTUNDED. ON TRACH TO MECHANICAL VENT SETTING WITH PORTEX 7: AC 12 TV 450 FIO2 35% PEEP +5. BREATHING EVEN AND UNLABORED. IV ACCESS ON LEFT FOOT# 22G, LIANA MIDLINE INTACT AND PATENT. NO /S INFILTRATIONS. GTUBE FEEDING WELL TOLERATED. GT FEEDING RUNNING GLUCERNA AT 35CC/HR AND GOAL IS TO INCREASE 55CC/HR. NO RESIDUAL NOTED. PUREWICK IN PLACE, DRAINING BY GRAVITY. ALL DUE MEDS GIVEN ORDERED. ALL SAFETY MEASURES IN PLACE. HOB ELEVATED. BED IN LOWEST POSITION AND LOCKED. SIDE RAILS UP X3, PLACE CALL LIGHT IN REACH.
--- NOTE | 2023-01-28 19:15 | NUR ---
RN OPENING NOTES: PATIENT IN BED, OBTUNDED. ON TRACH TO MECHANICAL VENT SETTING WITH PORTEX 7: AC 14 TV 450 FIO2 35% PEEP 5. BREATHING EVEN AND UNLABORED. IV ACCESS ON LEFT FOOT# 22G, LIANA MIDLINE, FLUSHED WITH NS, INTACT AND PATENT. GT FEEDING RUNNING GLUCERNA AT 35ML/HR. RESIDUAL 20 ML NOTED. TUBE FEEDING WELL TOLERATED. PUREWICK IN PLACE. ALL SAFETY MEASURES IN PLACE. HOB ELEVATED. BED IN LOWEST POSITION AND LOCKED. SIDE RAILS UP X2, CALL LIGHT IN REACH. WILL CONTINUE TO MONITOR
[2023-01-28 20:00] VITALS: BP 110/38
[2023-01-28] MEDS: ATORVASTATIN 10 MG TABLET GT SCH (21:02)
[2023-01-29] VITALS: BP 128/55
--- NOTE | 2023-01-29 | NUR ---
RN NOTES GASTRIC RESIDUAL IS 20 ML. GTUBE FEEDING RATE INCREASED FROM 35 ML/HR TO 45 ML/HR. GOAL IS 55 ML/HR FOR 24 HOURS. WILL CONTINUE TO MONITOR
[2023-01-29 04:00] VITALS: BP 122/35
[2023-01-29] MEDS: BLOOD SUGAR DIAGNOSTIC 1 EACH STRIP IN SCH ×2 (05:45→11:05)
[2023-01-29 06:22] LABS: BASOPHILS # (AUTO) 0.1 K/uL (0.0-0.2); BASOPHILS % (AUTO) 1.3 % (0.0-2.0); EOSINOPHILS % (AUTO) 7.1 % (0.0-6.0); HEMATOCRIT 29 % (33-45); HEMOGLOBIN 9.4 g/dL (11.5-14.8); LYMPHOCYTES # (AUTO) 1.5 K/uL (0.8-4.8); LYMPHOCYTES % (AUTO) 27.9 % (20.0-44.0); MEAN CORPUSCULAR HGB CONC 32 g/dl (31.0-36.0); MEAN CORPUSCULAR VOLUME 88 fL (82-100); MONOCYTES # (AUTO) 0.7 K/uL (0.1-1.30); MONOCYTES % (AUTO) 12.1 % (2.0-12.0); NEUTROPHILS # (AUTO) 2.8 K/uL (1.8-8.9); NEUTROPHILS % (AUTO) 51.6 % (43.0-81.0); PLATELET COUNT (AUTO) 305 K/uL (150-450); RED BLOOD CELL COUNT(AUTO) 3.31 MIL/uL (4.0-5.2); WHITE BLOOD COUNT (AUTO) 5.5 K/uL (4.3-11.0)
[2023-01-29 06:30] LABS: CALCIUM, SERUM 9.2 mg/dL (8.5-10.1); CREATININE 0.5 mg/dL (0.6-1.3)
[2023-01-29] MEDS: GLUCERNA 1.2 1,000 ML BOTTLE NG PRN (06:39)
--- NOTE | 2023-01-29 06:43 | NUR ---
CHECKER AND PACKER NOTE PT IN BED OBTUNDED. REMAIN ON VENT/TRACH TOLERATING THE SETTINGS WELL. NO DISTRESS OR DISCOMFORT NOTED. NO S/S OF PAIN NOTED. GTF INFUSING WELL. ON TELE SR 62. KEPT HER DRY AND CLEAN. REPOSITION HER Q2H, ALL NEEDS ATTENDED. WILL ENDORSE TO DAY SHIFT NURSE FOR CONTINUE TO CARE.
--- NOTE | 2023-01-29 07:00 | NUR ---
RN OPENING NOTES PATIENT IN BED, OBTUNDED. ON TRACH TO MECHANICAL VENT SETTING WITH PORTEX 7: AC 14 TV 450 FIO2 35% PEEP 5. BREATHING EVEN AND UNLABORED. IV ACCESS ON LEFT FOOT# 22G, LIANA MIDLINE, FLUSHED WITH NS, INTACT AND PATENT. GT FEEDING RUNNING GLUCERNA AT 55ML/HR. RESIDUAL 20 ML NOTED. TUBE FEEDING WELL TOLERATED. PUREWICK IN PLACE. ALL SAFETY MEASURES IN PLACE WITH HEAD OF BED ELEVATED, BED IN LOWEST AND LOCKED POSITION. SIDE RAILS UP X2, CALL LIGHT IN REACH. WILL CONTINUE TO MONITOR
[2023-01-29 08:00] VITALS: BP 128/40
[2023-01-29] MEDS: KEPPRA 1500 MG in IV NS 100 ML IV SCH (08:14)
[2023-01-29] MEDS: LEVOTHYROXINE SODIUM 100 MCG TABLET GT SCH (08:15)
[2023-01-29] MEDS: ANASTROZOLE 1 MG TABLET GT SCH (08:39)
[2023-01-29] MEDS: FUROSEMIDE 40 MG/4 ML VIAL IV SCH (08:39)
[2023-01-29] MEDS: METOCLOPRAMIDE HCL 10 MG/2 ML VIAL IV SCH ×2 (08:39→12:39)
[2023-01-29] MEDS: PANTOPRAZOLE 40 MG VIAL IV SCH (08:40)
[2023-01-29] MEDS: ASCORBIC ACID 500 MG TABLET GT SCH (08:41)
[2023-01-29] MEDS: FERROUS SULFATE UDC 300 MG/5 ML UDC GT SCH ×2 (08:41→12:39)
[2023-01-29] MEDS: MULTIVIT W/MINERALS 1 TAB TABLET GT SCH (08:41)
[2023-01-29] MEDS: LACTOBACILLUS RHAMNOSUS GG 1 EACH CAP.SPRINK GT SCH (08:41)
[2023-01-29] MEDS: CHLORHEXIDINE GLUCONATE 15 ML UDC MM SCH (08:42)
[2023-01-29] MEDS: CARVEDILOL 12.5 MG TABLET GT SCH (08:42)
[2023-01-29] MEDS: FOLIC ACID 1 MG TABLET GT SCH (08:43)
[2023-01-29] MEDS: PROSOURCE / PROSTAT (PYXIS) 30 ML UDC GT SCH (08:45)
[2023-01-29] MEDS: INSULIN REGULAR, HUMAN 100 UNIT/ML 3 ML VIAL SQ PRN (11:06)
[2023-01-29 12:00] VITALS: BP 107/42
--- NOTE | 2023-01-29 15:35 | NUR ---
RN NOTE PATIENT WAS DISCHARGED TO REHAB IN STABLE CONDITION, OBTUNDED, ON ROOM AIR, 02 SAT AT 96%, NO SOB, ACUTE DISTRESS NOTED. IV ACCESS REMOVED, NO BLEEDING NOTED, DRESSINGS INTACT, ALL PATIENT DISCHARGE FORMS WERE SIGNED ALONG WITH BELONGINGS. PATIENT LEFT VIA [facility].
== END 2023-01-29 15:37 | DRG 393 ==
LOC: ER 17:01 → TELE1 23:43
PROVIDERS: ADMIT Nurse Practitioner Family; ATTEND Nurse Practitioner Acute Care
PROC: 5A1955Z Respiratory Ventilation, Greater than 96 Consecutive Hours (ICD-10-PCS; principal; 2023-01-24)
PROC: 05HA33Z Insertion of Infusion Device into Left Brachial Vein, Percutaneous Approach (ICD-10-PCS; 2023-01-24)
DX: K94.29 Other complications of gastrostomy (principal); G93.41 Metabolic encephalopathy; J96.20 Acute and chronic respiratory failure, unspecified whether with hypoxia or hypercapnia; K92.2 Gastrointestinal hemorrhage, unspecified; J96.10 Chronic respiratory failure, unspecified whether with hypoxia or hypercapnia; I69.354 Hemiplegia and hemiparesis following cerebral infarction affecting left non-dominant side; Z99.11 Dependence on respirator [ventilator] status; D68.59 Other primary thrombophilia; J98.11 Atelectasis; J90 Pleural effusion, not elsewhere classified; I42.9 Cardiomyopathy, unspecified; I48.20 Chronic atrial fibrillation, unspecified; C78.01 Secondary malignant neoplasm of right lung; C79.82 Secondary malignant neoplasm of genital organs; K94.23 Gastrostomy malfunction; Y83.3 Surgical operation with formation of external stoma as the cause of abnormal reaction of the patient, or of later complication, without mention of misadventure at the time of the procedure; Y92.129 Unspecified place in nursing home as the place of occurrence of the external cause; Z20.822 Contact with and (suspected) exposure to COVID-19; I50.9 Heart failure, unspecified; I11.0 Hypertensive heart disease with heart failure; E78.00 Pure hypercholesterolemia, unspecified; E03.9 Hypothyroidism, unspecified; Z17.0 Estrogen receptor positive status [ER+]; Z90.11 Acquired absence of right breast and nipple; Z88.1 Allergy status to other antibiotic agents; Z91.040 Latex allergy status; Z88.0 Allergy status to penicillin; Z91.09 Other allergy status, other than to drugs and biological substances; Z79.01 Long term (current) use of anticoagulants; Z79.82 Long term (current) use of aspirin; Z79.51 Long term (current) use of inhaled steroids; D25.9 Leiomyoma of uterus, unspecified; D64.9 Anemia, unspecified; Z74.09 Other reduced mobility; E11.9 Type 2 diabetes mellitus without complications; I25.10 Atherosclerotic heart disease of native coronary artery without angina pectoris; Z79.899 Other long term (current) drug therapy; R13.10 Dysphagia, unspecified; Z86.711 Personal history of pulmonary embolism; K80.20 Calculus of gallbladder without cholecystitis without obstruction; K76.89 Other specified diseases of liver; G40.909 Epilepsy, unspecified, not intractable, without status epilepticus; I25.2 Old myocardial infarction; N85.8 Other specified noninflammatory disorders of uterus
CPT/HCPCS: 31720; 36410; 36415; 71045-TC; 71260-TC; 76641-TC; 80048-TC; 80076-TC; 82272-TC; 82378; 82607-TC; 82728-TC; 82784; 82962-TC; 83540-TC; 83690-TC; 83735-TC; 84100-TC; 84155; 84165; 84443-TC; 84484-TC; 85025-TC; 85610-TC; 85730-TC; 86300; 86304; 86334; 87081-TC; 94002-TC; 94003-TC; 94760-TC; 94762-TC; 94799-TC; A4223; A6253; A6403; A7526; C9113; C9803; G0378; J1815; J1940; J1953; J2270; J2765; J3490; J7030; J7040; J7050; Q9967

== ENCOUNTER 2023-08-03 14:26 | Inpatient (IN) | payer MEDICARE, OTHER ==
[~2023-08-03] VITALS: Ht 152.4 cm; Wt 80.7 kg
[~2023-08-03 14:26] MED LIST changes: +AMIN30LI2 GT; +ANAS1TAB50 GT; +APIX2.5T GT; -ASCO500C17 GT; +ASCO500T10 GT; -CRAN400C GT; +CRAN425C6 GT; +FERR300L GT; -FURO40TA5 GT; +LACT10SO3 GT; +LACT1CAP71 GT; -LORA-259 GT; +MULT-447 GT; +NALO0.4D4 IV; -NALO1DIS2 IJ; +OMEG1CAP GT; +OMEP40CA21 GT; +OXIC30CR3 TP; +POLY17PO4 GT; +POTA10CA43 GT; -POTA20PA3 GT; +SOD62.5V IV; +TRAM50TA2 GT
[2023-08-03] MEDS ORDERED: CEFEPIME 1 GM in IV D5W 50 ML IV ONE (15:00)
[2023-08-03] MEDS ORDERED: CEFEPIME 1 GM VIAL ONE ×2 (15:00→22:20)
[2023-08-03] MEDS ORDERED: IV NS 0.9% 1,000 ML BAG IV ONE (15:00)
[2023-08-03] MEDS ORDERED: CRAN3875 GT (15:04)
[2023-08-03] MEDS ORDERED: HYDR-4303 GT (15:04)
[2023-08-03] MEDS ORDERED: FURO-144 PO (15:04)
[2023-08-03] MEDS ORDERED: LACT10SO3 GT (15:04)
[2023-08-03] MEDS ORDERED: ZINC56.713 TP (15:04)
[2023-08-03] MEDS ORDERED: ACET-868 GT (15:04)
[2023-08-03] MEDS ORDERED: PETR113O TP (15:04)
[2023-08-03] MEDS ORDERED: POTA40LI17 GT (15:04)
[2023-08-03 15:30] LABS: BASOPHILS # (AUTO) 0.1 K/uL (0.0-0.2); BASOPHILS % (AUTO) 0.3 % (0.0-2.0); EOSINOPHILS # (AUTO) 0.6 K/uL (0.0-0.7); EOSINOPHILS % (AUTO) 3.2 % (0.0-6.0); HEMATOCRIT 25 % (33-45); HEMOGLOBIN 8.2 g/dL (11.5-14.8); LYMPHOCYTES # (AUTO) 1.1 K/uL (0.8-4.8); LYMPHOCYTES % (AUTO) 6.4 % (20.0-44.0); MEAN CORPUSCULAR HEMOGLOBIN 27 PG (26.0-33.0); MEAN CORPUSCULAR HGB CONC 33 g/dl (31.0-36.0); MEAN CORPUSCULAR VOLUME 83 fL (82-100); MONOCYTES # (AUTO) 1.4 K/uL (0.1-1.30); MONOCYTES % (AUTO) 8.1 % (2.0-12.0); NEUTROPHILS # (AUTO) 14.3 K/uL (1.8-8.9); PLATELET COUNT (AUTO) 408 K/uL (150-450); RED BLOOD CELL COUNT(AUTO) 3.06 MIL/uL (4.0-5.2); RED CELL DISTRIBUTION WIDTH 14.1 % (11.5-15.0); WHITE BLOOD COUNT (AUTO) 17.4 K/uL (4.3-11.0)
[2023-08-03 15:43] LABS: ALANINE AMINOTRANSFERASE 12 U/L (12-78); ALBUMIN 2.2 g/dL (3.4-5.0); ALKALINE PHOSPHATASE 107 U/L (46-116); ASPARTATE AMINOTRANSFERASE 30 U/L (15-37); BILIRUBIN,DIRECT 0.1 mg/dL (0.0-0.2); BILIRUBIN,TOTAL 0.3 mg/dL (0.2-1.0); CALCIUM, SERUM 8.8 mg/dL (8.5-10.1); CARBON DIOXIDE 30 mmol/L (21-32); CHLORIDE 96 mmol/L (98-107); CREATININE 0.6 mg/dL (0.6-1.3); GLUCOSE 175 mg/dL (74-106); POTASSIUM 4.3 mmol/L (3.5-5.1); SODIUM SERUM 133 mmol/L (136-145); TOTAL PROTEIN, SERUM 8.1 g/dL (6.4-8.2); UREA NITROGEN, BLOOD 19 mg/dL (7-18)
[2023-08-03 15:48] LABS: INR 1.08 (0.91-1.10); PARTIAL THROMBOPLASTIN TIME 33.6 SEC (24.3-34.3); PROTHROMBIN TIME 11.4 SECS (9.2-11.1)
[2023-08-03 15:50] LABS: LACTIC ACID 1.3 mmol/L (0.4-2.0)
[2023-08-03 16:53] LABS: APPEARANCE,URINE SLIGHTLY CLOUDY (CLEAR); BILIRUBIN,URINE NEGATIVE (NEGATIVE); BLOOD, URINE NEGATIVE Ery/uL (NEGATIVE); COLOR,URINE YELLOW (YELLOW); KETONES,URINE NEGATIVE (NEGATIVE); LEUKOCYTE ESTERASE ,URINE NEGATIVE (NEGATIVE); NITRITE, URINE NEGATIVE (NEGATIVE); PH,URINE 5.5 (5.0-8.0); PROTEIN,URINE NEGATIVE (NEGATIVE); UGLUCOSE NEGATIVE (NEGATIVE); UROBILINOGEN,URINE 0.2 EU/dL (0.2)
[2023-08-03 18:07] LABS: ADD URINE CULTURE YES; BACTERIA,URINE 3+ /HPF (None Seen); RBC,URINE 0-2 /HPF (0-2); SQUAMOUS EPITHELIAL CELL,UR 0-2 /HPF (None Seen); WBC,URINE 0-2 /HPF (0-3)
[2023-08-03 18:17] LABS: ANISOCYTOSIS 1+; BAND % (MANUAL) 2 % (0.0-5.0); EOSINOPHILS % (MANUAL) 3 % (0-4); LYMPHOCYTES % (MANUAL) 13 % (16-48); MONOCYTES % (MANUAL) 3 % (0-11.0); NEUTROPHILS % (MANUAL) 79 (42-76); PLATELET ESTIMATE ADEQUATE
[2023-08-03] MEDS ORDERED: HYDROCODONE/APAP 5/325MG TABLET GT ONE (18:30)
[2023-08-03] MEDS ORDERED: HYDROCODONE/APAP 5/325MG TABLET PO ONE (18:30)
[2023-08-03] MEDS ORDERED: ALBUTEROL FS 2.5 MG/3 ML VIAL.NEB IH PRN (19:00)
[2023-08-03] MEDS ORDERED: MAGNESIUM HYDROXIDE 30 ML UDC PO PRN (19:00)
[2023-08-03] MEDS ORDERED: MAG HYDROX/AL HYDROX/SIMETH 30 ML UDC PO PRN (19:00)
[2023-08-03] MEDS ORDERED: ONDANSETRON HCL/PF 4 MG/2 ML VIAL IVP PRN (19:00)
[2023-08-03] MEDS ORDERED: ACETAMINOPHEN 325 MG TABLET PO PRN (19:00)
[2023-08-03] MEDS ORDERED: ACETAMINOPHEN 325 MG TABLET MC PRN (19:00)
[2023-08-03] MEDS ORDERED: HYDROCODONE/APAP 5/325MG TABLET ONE (19:24)
[2023-08-03] MEDS ORDERED: LACTULOSE 10 G/15 ML UDC (PYXIS) GT PRN (19:30)
[2023-08-03 20:00] VITALS: BP 143/55; TEMP 98.8; O2SAT 99
[2023-08-03] MEDS ORDERED: ONDANSETRON 4 MG TAB.RAPDIS GT PRN (20:00)
[2023-08-03 20:15] VITALS: BP 143/62; TEMP 98.8; O2SAT 99
[2023-08-03] MEDS: CEFEPIME 1 GM in IV D5W 50 ML IV SCH (22:53)
[2023-08-03] MEDS: LEVETIRACETAM SOL (5 ML) 100 MG/ML UDC GT SCH (22:54)
[2023-08-03] MEDS: CHLORHEXIDINE GLUCONATE 15 ML UDC MM SCH (22:54)
[2023-08-04] VITALS: BP 140/53; TEMP 98.1; O2SAT 100
[2023-08-04 04:00] VITALS: BP 140/64; TEMP 99.5; O2SAT 98
[2023-08-04] MEDS: HYDROCODONE/APAP 5/325MG TABLET PO PRN ×2 (04:01→16:12)
[2023-08-04] MEDS ORDERED: CEFEPIME 1 GM VIAL ONE (04:29)
[2023-08-04] MEDS: CEFEPIME 1 GM in IV D5W 50 ML IV SCH (04:42)
[2023-08-04 06:49] LABS: BASOPHILS # (AUTO) 0.1 K/uL (0.0-0.2); BASOPHILS % (AUTO) 0.4 % (0.0-2.0); EOSINOPHILS # (AUTO) 0.4 K/uL (0.0-0.7); EOSINOPHILS % (AUTO) 3.1 % (0.0-6.0); HEMATOCRIT 22 % (33-45); HEMOGLOBIN 7.2 g/dL (11.5-14.8); LYMPHOCYTES # (AUTO) 1.2 K/uL (0.8-4.8); LYMPHOCYTES % (AUTO) 9.9 % (20.0-44.0); MEAN CORPUSCULAR HEMOGLOBIN 27 PG (26.0-33.0); MEAN CORPUSCULAR HGB CONC 32 g/dl (31.0-36.0); MEAN CORPUSCULAR VOLUME 84 fL (82-100); MONOCYTES # (AUTO) 1.1 K/uL (0.1-1.30); MONOCYTES % (AUTO) 9.8 % (2.0-12.0); NEUTROPHILS % (AUTO) 76.8 % (43.0-81.0); PLATELET COUNT (AUTO) 373 K/uL (150-450); RED BLOOD CELL COUNT(AUTO) 2.65 MIL/uL (4.0-5.2); WHITE BLOOD COUNT (AUTO) 11.7 K/uL (4.3-11.0)
[2023-08-04] MEDS ORDERED: ACETAMINOPHEN 650 MG/20.3 ML UDC GT PRN (07:00)
[2023-08-04 07:57] LABS: CALCIUM, SERUM 8.3 mg/dL (8.5-10.1); CREATININE 0.5 mg/dL (0.6-1.3); MAGNESIUM 2.1 mg/dL (1.8-2.4); PHOSPHORUS 3.4 mg/dL (2.5-4.9); POTASSIUM 3.4 mmol/L (3.5-5.1)
[2023-08-04 08:00] VITALS: BP 120/67; TEMP 99.3; O2SAT 100
[2023-08-04] MEDS ORDERED: GLUCERNA 1.2 1,000 ML BOTTLE NG PRN (08:30)
[2023-08-04] MEDS: POLYETHYLENE GLYCOL 3350 17 GM POWD.PACK GT SCH (08:32)
[2023-08-04] MEDS: FERROUS SULFATE UDC 300 MG/5 ML UDC GT SCH ×3 (08:33→16:11)
[2023-08-04] MEDS: PANTOPRAZOLE 40 MG/PACK PACK GT SCH (08:33)
[2023-08-04] MEDS: CHLORHEXIDINE GLUCONATE 15 ML UDC MM SCH ×2 (08:33→21:49)
[2023-08-04] MEDS: LEVOTHYROXINE SODIUM 75 MCG TABLET GT SCH (08:34)
[2023-08-04] MEDS: CARVEDILOL 12.5 MG TABLET GT SCH ×2 (08:34→17:00)
[2023-08-04] MEDS: DOCUSATE SODIUM 100 MG CAPSULE PO SCH ×2 (08:34→16:11)
[2023-08-04] MEDS: Z GUARD REMEDY 4 OZ OINT TP PRN (08:52)
[2023-08-04] MEDS: LEVETIRACETAM SOL (5 ML) 100 MG/ML UDC GT SCH ×2 (08:58→21:49)
[2023-08-04] MEDS: ASPIRIN 81 MG TAB.CHEW GT SCH (08:58)
[2023-08-04] MEDS: ZINC OXIDE 56.7 GM TUBE TP SCH (08:59)
[2023-08-04] MEDS ORDERED: POTASSIUM CHLORIDE 20 MEQ TAB.PRT.SR PO ONE (09:00)
[2023-08-04] MEDS: FUROSEMIDE 40 MG/4 ML VIAL IV SCH ×2 (09:04→15:11)
[2023-08-04] MEDS: ANASTROZOLE 1 MG TABLET GT SCH (09:47)
[2023-08-04 12:00] VITALS: BP 122/48; TEMP 100.6; O2SAT 98
[2023-08-04] MEDS: CEFEPIME 2 GM in IV D5W 100 ML IV SCH ×2 (12:05→21:48)
[2023-08-04 16:00] VITALS: BP 112/56; TEMP 98.8; O2SAT 99
[2023-08-04 16:20] LABS: IRON, SERUM 15 ug/dl (50-175); TOTAL IRON BINDING CAPACITY 159 ug/dl (250-450)
[2023-08-04 18:11] LABS: FERRITIN 838 ng/mL (8-388)
[2023-08-04 20:00] VITALS: BP 121/46; TEMP 97.3; O2SAT 97
[2023-08-05] VITALS: BP 126/54; TEMP 97.7; O2SAT 98
[2023-08-05] MEDS: HYDROCODONE/APAP 5/325MG TABLET PO PRN (01:12)
[2023-08-05 04:00] VITALS: BP 120/40; TEMP 98.2; O2SAT 99
[2023-08-05] MEDS: CEFEPIME 2 GM in IV D5W 100 ML IV SCH ×3 (04:59→20:43)
[2023-08-05 08:00] VITALS: BP 124/54; TEMP 98.6; O2SAT 99
[2023-08-05 08:07] LABS: CANCER AG, 15-3 23.3 U/mL (0.0-25.0); FOLIC ACID > 20.0 ng/mL (>3.0); IMMUNOGLOBULIN A, SERUM 445 mg/dL (87-352); IMMUNOGLOBULIN G, SERUM 1755 mg/dL (586-1602); IMMUNOGLOBULIN M, SERUM 101 mg/dL (26-217)
[2023-08-05] MEDS: DOCUSATE SODIUM LIQ 100 MG/10 ML UDC GT SCH ×2 (08:20→17:39)
[2023-08-05] MEDS: LEVOTHYROXINE SODIUM 75 MCG TABLET GT SCH (08:20)
[2023-08-05] MEDS: LEVETIRACETAM SOL (5 ML) 100 MG/ML UDC GT SCH ×2 (08:20→20:43)
[2023-08-05] MEDS: FERROUS SULFATE UDC 300 MG/5 ML UDC GT SCH ×3 (08:20→17:39)
[2023-08-05] MEDS: CHLORHEXIDINE GLUCONATE 15 ML UDC MM SCH ×2 (08:20→20:43)
[2023-08-05] MEDS: POLYETHYLENE GLYCOL 3350 17 GM POWD.PACK GT SCH (08:21)
[2023-08-05] MEDS: PANTOPRAZOLE 40 MG/PACK PACK GT SCH (08:21)
[2023-08-05] MEDS: ASPIRIN 81 MG TAB.CHEW GT SCH (08:21)
[2023-08-05] MEDS: CARVEDILOL 12.5 MG TABLET GT SCH ×2 (08:22→17:39)
[2023-08-05] MEDS: ZINC OXIDE 56.7 GM TUBE TP SCH (08:23)
[2023-08-05] MEDS: Z GUARD REMEDY 4 OZ OINT TP PRN (08:23)
[2023-08-05 08:32] LABS: BASOPHILS # (AUTO) 0.1 K/uL (0.0-0.2); EOSINOPHILS # (AUTO) 0.5 K/uL (0.0-0.7); EOSINOPHILS % (AUTO) 5.7 % (0.0-6.0); HEMATOCRIT 24 % (33-45); HEMOGLOBIN 7.5 g/dL (11.5-14.8); LYMPHOCYTES # (AUTO) 1.2 K/uL (0.8-4.8); LYMPHOCYTES % (AUTO) 14.3 % (20.0-44.0); MEAN CORPUSCULAR HEMOGLOBIN 27 PG (26.0-33.0); MEAN CORPUSCULAR HGB CONC 32 g/dl (31.0-36.0); MEAN CORPUSCULAR VOLUME 85 fL (82-100); MONOCYTES # (AUTO) 1.3 K/uL (0.1-1.30); MONOCYTES % (AUTO) 15.5 % (2.0-12.0); NEUTROPHILS # (AUTO) 5.3 K/uL (1.8-8.9); NEUTROPHILS % (AUTO) 63.5 % (43.0-81.0); PLATELET COUNT (AUTO) 365 K/uL (150-450); RED CELL DISTRIBUTION WIDTH 14.5 % (11.5-15.0); WHITE BLOOD COUNT (AUTO) 8.3 K/uL (4.3-11.0)
[2023-08-05 08:51] LABS: CALCIUM, SERUM 8.7 mg/dL (8.5-10.1); CREATININE 0.4 mg/dL (0.6-1.3); POTASSIUM 3.8 mmol/L (3.5-5.1)
[2023-08-05 10:07] LABS: *SPE A/G RATIO 0.5 (0.7-1.7); *SPE ALBUMIN 2.1 g/dL (2.9-4.4); *SPE ALPHA-1-GLOBULIN 0.5 g/dL (0.0-0.4); *SPE ALPHA-2-GLOBULIN 1.2 g/dL (0.4-1.0); *SPE BETA GLOBULIN 1.2 g/dL (0.7-1.3); *SPE GLOBULIN, TOTAL 4.6 g/dL (2.2-3.9); *SPE M-SPIKE Not Observed g/dL (Not Observed); *SPE PROTEIN TOTAL 6.7 g/dL (6.0-8.5); *SPEGAMMA GLOBULIN 1.7 g/dL (0.4-1.8)
[2023-08-05] MEDS: ANASTROZOLE 1 MG TABLET GT SCH (11:43)
[2023-08-05] MEDS ORDERED: GLUCERNA 1.2 1,000 ML BOTTLE NG PRN (12:00)
[2023-08-05 16:03] VITALS: BP 138/64; TEMP 98.8; O2SAT 96
[2023-08-05 20:00] VITALS: BP 115/67; TEMP 98.4; O2SAT 100
[2023-08-05] MEDS: HYDROCODONE/APAP 5/325MG TABLET GT PRN (20:44)
[2023-08-05 20:51] LABS: OCCULT BLOOD STOOL NEGATIVE (NEGATIVE)
[2023-08-06] VITALS: BP 135/41; TEMP 98.8; O2SAT 100
[2023-08-06] MEDS: HYDROCODONE/APAP 5/325MG TABLET GT PRN ×2 (02:43→18:04)
[2023-08-06 04:00] VITALS: BP 133/51; TEMP 97.9; O2SAT 100
[2023-08-06] MEDS: CEFEPIME 2 GM in IV D5W 100 ML IV SCH ×2 (04:37→20:29)
[2023-08-06 07:04] LABS: BASOPHILS # (AUTO) 0.1 K/uL (0.0-0.2); EOSINOPHILS # (AUTO) 0.5 K/uL (0.0-0.7); EOSINOPHILS % (AUTO) 5.2 % (0.0-6.0); HEMATOCRIT 24 % (33-45); HEMOGLOBIN 7.8 g/dL (11.5-14.8); LYMPHOCYTES # (AUTO) 1.2 K/uL (0.8-4.8); LYMPHOCYTES % (AUTO) 13.2 % (20.0-44.0); MEAN CORPUSCULAR HEMOGLOBIN 28 PG (26.0-33.0); MEAN CORPUSCULAR HGB CONC 33 g/dl (31.0-36.0); MEAN CORPUSCULAR VOLUME 84 fL (82-100); MONOCYTES # (AUTO) 1.3 K/uL (0.1-1.30); NEUTROPHILS # (AUTO) 6.1 K/uL (1.8-8.9); NEUTROPHILS % (AUTO) 66.6 % (43.0-81.0); PLATELET COUNT (AUTO) 430 K/uL (150-450); RED BLOOD CELL COUNT(AUTO) 2.82 MIL/uL (4.0-5.2); RED CELL DISTRIBUTION WIDTH 14.1 % (11.5-15.0); WHITE BLOOD COUNT (AUTO) 9.2 K/uL (4.3-11.0)
[2023-08-06] MEDS: LEVETIRACETAM SOL (5 ML) 100 MG/ML UDC GT SCH ×2 (08:46→20:29)
[2023-08-06] MEDS: DOCUSATE SODIUM LIQ 100 MG/10 ML UDC GT SCH ×2 (08:46→18:04)
[2023-08-06] MEDS: CHLORHEXIDINE GLUCONATE 15 ML UDC MM SCH ×2 (08:46→20:29)
[2023-08-06] MEDS: FERROUS SULFATE UDC 300 MG/5 ML UDC GT SCH ×3 (08:46→18:04)
[2023-08-06] MEDS: POLYETHYLENE GLYCOL 3350 17 GM POWD.PACK GT SCH (08:47)
[2023-08-06] MEDS: PANTOPRAZOLE 40 MG/PACK PACK GT SCH (08:47)
[2023-08-06] MEDS: ASPIRIN 81 MG TAB.CHEW GT SCH (08:47)
[2023-08-06] MEDS: ANASTROZOLE 1 MG TABLET GT SCH (08:47)
[2023-08-06] MEDS: LEVOTHYROXINE SODIUM 75 MCG TABLET GT SCH (08:47)
[2023-08-06] MEDS: CARVEDILOL 12.5 MG TABLET GT SCH ×2 (08:47→16:48)
[2023-08-06] MEDS: ZINC OXIDE 56.7 GM TUBE TP SCH (08:48)
[2023-08-06 16:00] VITALS: BP 105/53; TEMP 98.9; O2SAT 94
[2023-08-06 20:00] VITALS: BP 102/48; TEMP 98.8; O2SAT 100
[2023-08-07] VITALS: BP 128/48; TEMP 99.1; O2SAT 100
[2023-08-07] MEDS: HYDROCODONE/APAP 5/325MG TABLET GT PRN ×3 (00:40→22:00)
[2023-08-07 04:00] VITALS: BP 129/49; TEMP 97.6; O2SAT 100
[2023-08-07 06:55] LABS: BASOPHILS # (AUTO) 0.1 K/uL (0.0-0.2); BASOPHILS % (AUTO) 1.4 % (0.0-2.0); EOSINOPHILS # (AUTO) 0.5 K/uL (0.0-0.7); EOSINOPHILS % (AUTO) 6.9 % (0.0-6.0); HEMATOCRIT 25 % (33-45); HEMOGLOBIN 7.9 g/dL (11.5-14.8); LYMPHOCYTES # (AUTO) 1.6 K/uL (0.8-4.8); LYMPHOCYTES % (AUTO) 20.1 % (20.0-44.0); MEAN CORPUSCULAR HEMOGLOBIN 27 PG (26.0-33.0); MEAN CORPUSCULAR HGB CONC 32 g/dl (31.0-36.0); MEAN CORPUSCULAR VOLUME 86 fL (82-100); MONOCYTES # (AUTO) 1.3 K/uL (0.1-1.30); MONOCYTES % (AUTO) 16.4 % (2.0-12.0); NEUTROPHILS # (AUTO) 4.4 K/uL (1.8-8.9); NEUTROPHILS % (AUTO) 55.2 % (43.0-81.0); PLATELET COUNT (AUTO) 427 K/uL (150-450); RED BLOOD CELL COUNT(AUTO) 2.91 MIL/uL (4.0-5.2); RED CELL DISTRIBUTION WIDTH 14.3 % (11.5-15.0)
[2023-08-07 07:11] LABS: CALCIUM, SERUM 8.9 mg/dL (8.5-10.1); CREATININE 0.4 mg/dL (0.6-1.3); MAGNESIUM 2.4 mg/dL (1.8-2.4); PHOSPHORUS 4.1 mg/dL (2.5-4.9); POTASSIUM 4.2 mmol/L (3.5-5.1)
[2023-08-07] MEDS: CHLORHEXIDINE GLUCONATE 15 ML UDC MM SCH ×2 (08:18→21:38)
[2023-08-07] MEDS: ANASTROZOLE 1 MG TABLET GT SCH (08:18)
[2023-08-07] MEDS: ASPIRIN 81 MG TAB.CHEW GT SCH (08:18)
[2023-08-07] MEDS: PANTOPRAZOLE 40 MG/PACK PACK GT SCH (08:18)
[2023-08-07] MEDS: FERROUS SULFATE UDC 300 MG/5 ML UDC GT SCH ×3 (08:18→16:24)
[2023-08-07] MEDS: LEVETIRACETAM SOL (5 ML) 100 MG/ML UDC GT SCH ×2 (08:18→21:39)
[2023-08-07] MEDS: POLYETHYLENE GLYCOL 3350 17 GM POWD.PACK GT SCH (08:18)
[2023-08-07] MEDS: DOCUSATE SODIUM LIQ 100 MG/10 ML UDC GT SCH ×2 (08:18→16:23)
[2023-08-07] MEDS: LEVOTHYROXINE SODIUM 75 MCG TABLET GT SCH (08:18)
[2023-08-07] MEDS: CARVEDILOL 12.5 MG TABLET GT SCH ×2 (08:19→16:24)
[2023-08-07] MEDS: ZINC OXIDE 56.7 GM TUBE TP SCH (08:20)
[2023-08-07] MEDS: CEFEPIME 2 GM in IV D5W 100 ML IV SCH (08:22)
[2023-08-07 08:26] VITALS: BP 140/48; TEMP 98.2; O2SAT 97
[2023-08-07] MEDS ORDERED: MERO500V23 IV (11:55)
[2023-08-07 12:11] VITALS: BP 118/43; TEMP 98.6; O2SAT 100
[2023-08-07 16:02] VITALS: BP 127/50; TEMP 98.4; O2SAT 100
[2023-08-07] MEDS: MEROPENEM 1 G in IV NS 0.9% 100 ML IV SCH (17:07)
[2023-08-07 20:00] VITALS: BP_SYST 132; BP_DIAS 49; BP_DIAS 69; TEMP 98.6; O2SAT 100
[2023-08-08] VITALS: BP 125/63; TEMP 97.9; O2SAT 95
[2023-08-08] MEDS: MEROPENEM 1 G in IV NS 0.9% 100 ML IV SCH ×3 (01:29→18:17)
[2023-08-08 04:00] VITALS: BP 138/46; TEMP 98.7; O2SAT 100
[2023-08-08] MEDS: HYDROCODONE/APAP 5/325MG TABLET GT PRN (04:14)
[2023-08-08 07:23] LABS: APPEARANCE,URINE SLIGHTLY CLOUDY (CLEAR); BILIRUBIN,URINE NEGATIVE (NEGATIVE); BLOOD, URINE NEGATIVE Ery/uL (NEGATIVE); COLOR,URINE DARK YELLOW (YELLOW); KETONES,URINE 1+ mg/dL (NEGATIVE); LEUKOCYTE ESTERASE ,URINE NEGATIVE (NEGATIVE); NITRITE, URINE NEGATIVE (NEGATIVE); PH,URINE 6.5 (5.0-8.0); PROTEIN,URINE 1+ mg/dl (NEGATIVE); UGLUCOSE NEGATIVE (NEGATIVE); UROBILINOGEN,URINE 0.2 EU/dL (0.2)
[2023-08-08 07:37] LABS: RBC,URINE 0-2 /HPF (0-2); WBC,URINE 0-2 /HPF (0-3)
[2023-08-08 07:38] LABS: ADD URINE CULTURE NO; BACTERIA,URINE Rare /HPF (None Seen); SQUAMOUS EPITHELIAL CELL,UR Few /HPF (None Seen)
[2023-08-08 08:00] VITALS: BP 111/51; TEMP 97.3; O2SAT 100
[2023-08-08] MEDS: CARVEDILOL 12.5 MG TABLET GT SCH ×2 (09:00→18:04)
[2023-08-08] MEDS: CHLORHEXIDINE GLUCONATE 15 ML UDC MM SCH ×2 (09:35→20:31)
[2023-08-08] MEDS: ASPIRIN 81 MG TAB.CHEW GT SCH (09:35)
[2023-08-08] MEDS: LEVETIRACETAM SOL (5 ML) 100 MG/ML UDC GT SCH ×2 (09:35→20:31)
[2023-08-08] MEDS: DOCUSATE SODIUM LIQ 100 MG/10 ML UDC GT SCH ×2 (09:35→18:04)
[2023-08-08] MEDS: PANTOPRAZOLE 40 MG/PACK PACK GT SCH (09:35)
[2023-08-08] MEDS: FERROUS SULFATE UDC 300 MG/5 ML UDC GT SCH ×3 (09:35→18:04)
[2023-08-08] MEDS: ANASTROZOLE 1 MG TABLET GT SCH (09:35)
[2023-08-08] MEDS: POLYETHYLENE GLYCOL 3350 17 GM POWD.PACK GT SCH (09:36)
[2023-08-08] MEDS: LEVOTHYROXINE SODIUM 75 MCG TABLET GT SCH (09:36)
[2023-08-08] MEDS: ZINC OXIDE 56.7 GM TUBE TP SCH (09:40)
[2023-08-08 16:00] VITALS: BP 148/80; TEMP 98.3; O2SAT 100
[2023-08-08 20:00] VITALS: BP 139/42; TEMP 98.7; O2SAT 100
[2023-08-09] VITALS: BP 128/65; TEMP 98; O2SAT 100
[2023-08-09] MEDS: MEROPENEM 1 G in IV NS 0.9% 100 ML IV SCH ×3 (01:07→17:30)
[2023-08-09 04:00] VITALS: BP 118/55; TEMP 99; O2SAT 100
[2023-08-09 08:30] VITALS: BP 110/45; TEMP 98.8; O2SAT 98
[2023-08-09] MEDS: CARVEDILOL 12.5 MG TABLET GT SCH ×2 (09:00→17:00)
[2023-08-09] MEDS: PANTOPRAZOLE 40 MG/PACK PACK GT SCH (10:01)
[2023-08-09] MEDS: POLYETHYLENE GLYCOL 3350 17 GM POWD.PACK GT SCH (10:01)
[2023-08-09] MEDS: LEVOTHYROXINE SODIUM 75 MCG TABLET GT SCH (10:01)
[2023-08-09] MEDS: ANASTROZOLE 1 MG TABLET GT SCH (10:01)
[2023-08-09] MEDS: ASPIRIN 81 MG TAB.CHEW GT SCH (10:01)
[2023-08-09] MEDS: CHLORHEXIDINE GLUCONATE 15 ML UDC MM SCH ×2 (10:01→20:33)
[2023-08-09] MEDS: FERROUS SULFATE UDC 300 MG/5 ML UDC GT SCH ×3 (10:02→17:26)
[2023-08-09] MEDS: DOCUSATE SODIUM LIQ 100 MG/10 ML UDC GT SCH ×2 (10:02→17:26)
[2023-08-09] MEDS: LEVETIRACETAM SOL (5 ML) 100 MG/ML UDC GT SCH ×2 (10:02→20:33)
[2023-08-09 12:11] VITALS: BP 135/47; TEMP 98.7; O2SAT 100
[2023-08-09 14:53] LABS: BASOPHILS # (AUTO) 0.2 K/uL (0.0-0.2); BASOPHILS % (AUTO) 3.2 % (0.0-2.0); EOSINOPHILS # (AUTO) 0.2 K/uL (0.0-0.7); HEMATOCRIT 26 % (33-45); HEMOGLOBIN 8.1 g/dL (11.5-14.8); LYMPHOCYTES # (AUTO) 1.3 K/uL (0.8-4.8); LYMPHOCYTES % (AUTO) 25.8 % (20.0-44.0); MEAN CORPUSCULAR HEMOGLOBIN 26 PG (26.0-33.0); MEAN CORPUSCULAR HGB CONC 32 g/dl (31.0-36.0); MEAN CORPUSCULAR VOLUME 83 fL (82-100); MONOCYTES # (AUTO) 0.6 K/uL (0.1-1.30); MONOCYTES % (AUTO) 12.7 % (2.0-12.0); NEUTROPHILS # (AUTO) 2.7 K/uL (1.8-8.9); NEUTROPHILS % (AUTO) 54.3 % (43.0-81.0); PLATELET COUNT (AUTO) 557 K/uL (150-450); RED BLOOD CELL COUNT(AUTO) 3.09 MIL/uL (4.0-5.2); RED CELL DISTRIBUTION WIDTH 14.3 % (11.5-15.0)
[2023-08-09 15:04] LABS: CREATININE 0.3 mg/dL (0.6-1.3); POTASSIUM 3.4 mmol/L (3.5-5.1)
[2023-08-09 15:58] LABS: ANISOCYTOSIS 1+; BAND % (MANUAL) 2 % (0.0-5.0); EOSINOPHILS % (MANUAL) 1 % (0-4); LYMPHOCYTES % (MANUAL) 10 % (16-48); MONOCYTES % (MANUAL) 3 % (0-11.0); NEUTROPHILS % (MANUAL) 84 (42-76); PLATELET ESTIMATE INCREASED
[2023-08-09 16:00] VITALS: BP 103/49; TEMP 98.4; O2SAT 100
[2023-08-09] MEDS: ZINC OXIDE 56.7 GM TUBE TP SCH (17:31)
[2023-08-09 20:00] VITALS: BP 150/63; TEMP 97.4; O2SAT 100; O2SAT 99
[2023-08-09] MEDS ORDERED: POTASSIUM CHLORIDE 20 MEQ POWDER PACKET GT ONE (21:00)
[2023-08-10] VITALS (7 sets, daily range): BP systolic 128–181; BP diastolic 53–69; TEMP 97.3–98.6; O2SAT 98–100
[2023-08-10] MEDS: MEROPENEM 1 G in IV NS 0.9% 100 ML IV SCH ×3 (00:38→16:47)
[2023-08-10] MEDS: LEVETIRACETAM SOL (5 ML) 100 MG/ML UDC GT SCH (08:14)
[2023-08-10] MEDS: POLYETHYLENE GLYCOL 3350 17 GM POWD.PACK GT SCH (08:14)
[2023-08-10] MEDS: FERROUS SULFATE UDC 300 MG/5 ML UDC GT SCH ×3 (08:15→16:47)
[2023-08-10] MEDS: CHLORHEXIDINE GLUCONATE 15 ML UDC MM SCH (08:15)
[2023-08-10] MEDS: ASPIRIN 81 MG TAB.CHEW GT SCH (08:15)
[2023-08-10] MEDS: ANASTROZOLE 1 MG TABLET GT SCH (08:15)
[2023-08-10] MEDS: LEVOTHYROXINE SODIUM 75 MCG TABLET GT SCH (08:15)
[2023-08-10] MEDS: PANTOPRAZOLE 40 MG/PACK PACK GT SCH (08:15)
[2023-08-10] MEDS: CARVEDILOL 12.5 MG TABLET GT SCH ×2 (08:15→16:47)
[2023-08-10] MEDS: DOCUSATE SODIUM LIQ 100 MG/10 ML UDC GT SCH ×2 (08:15→16:47)
[2023-08-10] MEDS: ZINC OXIDE 56.7 GM TUBE TP SCH (08:16)
[2023-08-10] MEDS ORDERED: CLONIDINE HCL 0.1 MG TABLET PO ONE (13:30)
[2023-08-10] MEDS ORDERED: CLONIDINE HCL 0.1 MG TABLET GT ONE ×2 (14:00→18:30)
[2023-08-10] MEDS: HYDROCODONE/APAP 5/325MG TABLET GT PRN (17:24)
[2023-08-10] MEDS ORDERED: hydrALAZINE HCL IV 20 MG VIAL IV ONE (18:30)
== END 2023-08-10 20:00 | DRG 207 ==
LOC: ER 14:35 → TELE 19:13
PROVIDERS: ADMIT Internal Medicine; ATTEND Internal Medicine
PROC: 5A1955Z Respiratory Ventilation, Greater than 96 Consecutive Hours (ICD-10-PCS; principal; 2023-08-03)
PROC: 05H533Z Insertion of Infusion Device into Right Subclavian Vein, Percutaneous Approach (ICD-10-PCS; 2023-08-06)
PROC: B546ZZA Ultrasonography of Right Subclavian Vein, Guidance (ICD-10-PCS; 2023-08-06)
PROC: 05H633Z Insertion of Infusion Device into Left Subclavian Vein, Percutaneous Approach (ICD-10-PCS; 2023-08-07)
PROC: B547ZZA Ultrasonography of Left Subclavian Vein, Guidance (ICD-10-PCS; 2023-08-07)
DX: J96.21 Acute and chronic respiratory failure with hypoxia (principal); E43 Unspecified severe protein-calorie malnutrition; G93.41 Metabolic encephalopathy; I50.23 Acute on chronic systolic (congestive) heart failure; N39.0 Urinary tract infection, site not specified; I69.351 Hemiplegia and hemiparesis following cerebral infarction affecting right dominant side; Z99.11 Dependence on respirator [ventilator] status; D68.69 Other thrombophilia; C78.02 Secondary malignant neoplasm of left lung; C78.01 Secondary malignant neoplasm of right lung; C79.89 Secondary malignant neoplasm of other specified sites; R65.10 Systemic inflammatory response syndrome (SIRS) of non-infectious origin without acute organ dysfunction; J90 Pleural effusion, not elsewhere classified; Z16.12 Extended spectrum beta lactamase (ESBL) resistance; I42.9 Cardiomyopathy, unspecified; I11.0 Hypertensive heart disease with heart failure; E11.9 Type 2 diabetes mellitus without complications; E03.9 Hypothyroidism, unspecified; E88.09 Other disorders of plasma-protein metabolism, not elsewhere classified; G40.909 Epilepsy, unspecified, not intractable, without status epilepticus; I48.0 Paroxysmal atrial fibrillation; I25.10 Atherosclerotic heart disease of native coronary artery without angina pectoris; R13.10 Dysphagia, unspecified; Z79.82 Long term (current) use of aspirin; Z88.0 Allergy status to penicillin; Z93.1 Gastrostomy status; Z20.822 Contact with and (suspected) exposure to COVID-19; D50.9 Iron deficiency anemia, unspecified; Z85.3 Personal history of malignant neoplasm of breast; Z86.711 Personal history of pulmonary embolism; Z79.899 Other long term (current) drug therapy; Z90.11 Acquired absence of right breast and nipple; E78.5 Hyperlipidemia, unspecified; Z68.34 Body mass index [BMI] 34.0-34.9, adult; Z17.0 Estrogen receptor positive status [ER+]; B96.20 Unspecified Escherichia coli [E. coli] as the cause of diseases classified elsewhere
CPT/HCPCS: 31720; 36415; 71045-TC; 80048-TC; 80076-TC; 81001; 82272-TC; 82378; 82607-TC; 82728-TC; 82784; 82962-TC; 83540-TC; 83605-TC; 83735-TC; 83880; 84100-TC; 84155; 84165; 84484-TC; 85025-TC; 85730-TC; 86300; 86334; 87040-TC; 87081-TC; 87086-TC; 94002-TC; 94003-TC; 94799-TC; A4223; A4623; A6253; A7526; G0378; J0360; J0692; J1940; J1953; J2185; J7030; J7040; J7050; J7060

== ENCOUNTER 2024-07-14 13:16 | Inpatient (IN) | payer MEDICARE, BC ==
[~2024-07-14] VITALS: Ht 160 cm; Wt 68.0 kg
[~2024-07-14 13:16] MED LIST changes: +ACET-868 JT; -APIX2.5T GT; -ASCO500T10 GT; -ATOR20TA GT; +ATOR20TA JT; +CRAN3875 GT; -DOCU-141 GT; +DOCU-141 JT; +FURO-144 PO; +HYDR-4303 JT; +LACT10SO3 JT; -LACT1CAP71 GT; -LEVE100S GT; +LEVE100S JT; +MERO500V23 IV; -MULT-447 GT; +MULT-447 JT; -ONDA4TAB5 GT; +ONDA4TAB5 JT; -OXIC30CR3 TP; +PETR113O TP; -POTA10CA43 GT; +POTA40LI17 JT; -SOD62.5V IV; -TRAM50TA2 GT; +ZINC56.713 TP
[2024-07-14 14:41] LABS: BASOPHILS # (AUTO) 0.1 K/uL (0.0-0.2); BASOPHILS % (AUTO) 0.8 % (0.0-2.0); EOSINOPHILS # (AUTO) 0.5 K/uL (0.0-0.7); EOSINOPHILS % (AUTO) 3.3 % (0.0-6.0); HEMATOCRIT 23 % (33-45); HEMOGLOBIN 7.7 g/dL (11.5-14.8); LYMPHOCYTES # (AUTO) 1.1 K/uL (0.8-4.8); LYMPHOCYTES % (AUTO) 7.7 % (20.0-44.0); MEAN CORPUSCULAR HEMOGLOBIN 28 PG (26.0-33.0); MEAN CORPUSCULAR HGB CONC 33 g/dl (31.0-36.0); MEAN CORPUSCULAR VOLUME 86 fL (82-100); MONOCYTES # (AUTO) 1.2 K/uL (0.1-1.30); MONOCYTES % (AUTO) 8.7 % (2.0-12.0); NEUTROPHILS # (AUTO) 11.1 K/uL (1.8-8.9); NEUTROPHILS % (AUTO) 79.5 % (43.0-81.0); PLATELET COUNT (AUTO) 574 K/uL (150-450); RED CELL DISTRIBUTION WIDTH 18.8 % (11.5-15.0)
[2024-07-14 14:57] LABS: CALCIUM, SERUM 8.3 mg/dL (8.5-10.1); CREATININE 0.4 mg/dL (0.6-1.3); POTASSIUM 4.5 mmol/L (3.5-5.1)
[2024-07-14 15:11] LABS: ALBUMIN 1.9 g/dL (3.4-5.0); BILIRUBIN,DIRECT 0.1 mg/dL (0.0-0.2); BILIRUBIN,TOTAL 0.2 mg/dL (0.2-1.0); TOTAL PROTEIN, SERUM 7.3 g/dL (6.4-8.2)
[2024-07-14 15:17] LABS: APPEARANCE,URINE CLEAR (CLEAR); BILIRUBIN,URINE NEGATIVE (NEGATIVE); BLOOD, URINE NEGATIVE Ery/uL (NEGATIVE); COLOR,URINE YELLOW (YELLOW); KETONES,URINE NEGATIVE (NEGATIVE); LEUKOCYTE ESTERASE ,URINE NEGATIVE (NEGATIVE); NITRITE, URINE NEGATIVE (NEGATIVE); PH,URINE 7.5 (5.0-8.0); PROTEIN,URINE NEGATIVE (NEGATIVE); UGLUCOSE NEGATIVE (NEGATIVE)
[2024-07-14 15:21] LABS: ADD URINE CULTURE NO; BACTERIA,URINE Few /HPF (None Seen); RBC,URINE 0-2 /HPF (0-2); SQUAMOUS EPITHELIAL CELL,UR Few /HPF (None Seen)
[2024-07-14] MEDS ORDERED: IOHEXOL-300 100 ML VIAL IV ONE (15:54)
[2024-07-14] MEDS ORDERED: IV NS 0.9% 250 ML IV ONE (15:54)
[2024-07-14] MEDS ORDERED: METO5TAB2 JT (16:48)
[2024-07-14] MEDS ORDERED: HONE44PA TP (16:48)
[2024-07-14] MEDS ORDERED: TRIA80CR12 TP (16:48)
[2024-07-14] MEDS ORDERED: HYDR-4076 JT (16:48)
[2024-07-14] MEDS ORDERED: MAGN400O6 JT (16:48)
[2024-07-14] MEDS ORDERED: NA P133E RC (16:48)
[2024-07-14] MEDS ORDERED: BISA10SU11 RC (16:48)
[2024-07-14] MEDS ORDERED: LACT-209 JT (16:48)
[2024-07-14] MEDS ORDERED: MORP10SU RC (16:48)
[2024-07-14] MEDS ORDERED: PANT40SU2 JT (16:48)
[2024-07-14] MEDS ORDERED: NALO4SPR NS (16:48)
[2024-07-14] MEDS ORDERED: CARV6.252 JT (16:48)
[2024-07-14] MEDS ORDERED: HEPA50008 SQ (16:48)
[2024-07-14] MEDS ORDERED: FURO40TA5 JT (16:48)
[2024-07-14] MEDS ORDERED: AMIO200T5 JT (16:48)
[2024-07-14] MEDS ORDERED: LACT1CAP7 JT (16:48)
[2024-07-14] MEDS ORDERED: ASCO500T21 JT (16:48)
[2024-07-14] MEDS ORDERED: ACET-637 JT (16:48)
[2024-07-14] MEDS ORDERED: LOSA50TA39 JT (16:48)
[2024-07-14] MEDS ORDERED: LEVO150T8 JT (16:48)
[2024-07-14 18:00] VITALS: BP 123/47; TEMP 97.9; O2SAT 97
[2024-07-14] MEDS ORDERED: ONDANSETRON HCL/PF 4 MG/2 ML VIAL IVP PRN (19:30)
[2024-07-14] MEDS: IV NS 0.9% 1,000 ML IV PRN (19:56)
[2024-07-14 20:00] VITALS: BP 110/86; TEMP 98.1; O2SAT 96
[2024-07-14] MEDS: PANTOPRAZOLE 40 MG VIAL IV SCH (20:03)
[2024-07-14] MEDS: ZOSYN IVPB 3.375 G in IV D5W 50ml IV SCH (20:03)
[2024-07-14] MEDS ORDERED: DEXTROSE 50%-WATER 50 ML DISP.SYRIN IV PRN (21:30)
[2024-07-15] VITALS: BP 129/84; TEMP 99; O2SAT 97
[2024-07-15] MEDS: BLOOD SUGAR DIAGNOSTIC 1 EACH STRIP IN SCH (00:15)
[2024-07-15 04:00] VITALS: BP 150/72; TEMP 99.7; O2SAT 98
[2024-07-15] MEDS: ACETAMINOPHEN 650 MG/SUPP.RECT RC PRN (04:51)
[2024-07-15 07:27] LABS: BASOPHILS # (AUTO) 0.1 K/uL (0.0-0.2); BASOPHILS % (AUTO) 1.1 % (0.0-2.0); EOSINOPHILS # (AUTO) 0.1 K/uL (0.0-0.7); EOSINOPHILS % (AUTO) 1.2 % (0.0-6.0); HEMATOCRIT 23 % (33-45); HEMOGLOBIN 7.2 g/dL (11.5-14.8); LYMPHOCYTES # (AUTO) 1.1 K/uL (0.8-4.8); LYMPHOCYTES % (AUTO) 10.8 % (20.0-44.0); MEAN CORPUSCULAR HEMOGLOBIN 27 PG (26.0-33.0); MEAN CORPUSCULAR HGB CONC 32 g/dl (31.0-36.0); MEAN CORPUSCULAR VOLUME 86 fL (82-100); MONOCYTES # (AUTO) 1.1 K/uL (0.1-1.30); MONOCYTES % (AUTO) 10.3 % (2.0-12.0); NEUTROPHILS # (AUTO) 8.1 K/uL (1.8-8.9); NEUTROPHILS % (AUTO) 76.6 % (43.0-81.0); PLATELET COUNT (AUTO) 598 K/uL (150-450); RED BLOOD CELL COUNT(AUTO) 2.63 MIL/uL (4.0-5.2); RED CELL DISTRIBUTION WIDTH 18.2 % (11.5-15.0); WHITE BLOOD COUNT (AUTO) 10.5 K/uL (4.3-11.0)
[2024-07-15 07:48] LABS: CALCIUM, SERUM 8.7 mg/dL (8.5-10.1); CREATININE 0.4 mg/dL (0.6-1.3); MAGNESIUM 2.5 mg/dL (1.8-2.4); POTASSIUM 3.4 mmol/L (3.5-5.1)
[2024-07-15 08:00] VITALS: BP 122/51; TEMP 98.3; O2SAT 96
[2024-07-15] MEDS ORDERED: PANTOPRAZOLE 40 MG/PACK PACK JT SCH (09:30)
[2024-07-15] MEDS ORDERED: JEVITY 1.2 CAL 1,000 ML BOTTLE JT SCH (09:30)
[2024-07-15] MEDS: LEVOTHYROXINE SODIUM 75 MCG TABLET PO SCH (09:49)
[2024-07-15] MEDS: ASCORBIC ACID 500 MG TABLET GT SCH (09:49)
[2024-07-15] MEDS: DOCUSATE SODIUM 100 MG CAPSULE PO SCH (09:49)
[2024-07-15] MEDS: LEVETIRACETAM SOL (5 ML) 100 MG/ML UDC JT SCH (09:49)
[2024-07-15] MEDS: ZINC OXIDE 56.7 GM TUBE TP SCH (09:50)
[2024-07-15] MEDS: POTASSIUM CHLORIDE 20 MEQ POWDER PACKET GT SCH (09:50)
[2024-07-15] MEDS: MULTIVITAMIN/LUTEIN/MINERALS 1 TAB PO SCH (09:50)
[2024-07-15] MEDS: hydrALAZINE HCL 25 MG TABLET JT SCH (09:50)
[2024-07-15] MEDS: AMIODARONE HCL 200 MG TABLET GT SCH (09:50)
[2024-07-15] MEDS: FUROSEMIDE 40 MG TABLET GT SCH (09:50)
[2024-07-15] MEDS: CARVEDILOL 6.25 MG TABLET JT SCH (09:50)
[2024-07-15 11:10] LABS: BAND % (MANUAL) 2 % (0.0-5.0); EOSINOPHILS % (MANUAL) 2 % (0-4); LYMPHOCYTES % (MANUAL) 11 % (16-48); MONOCYTES % (MANUAL) 6 % (0-11.0); NEUTROPHILS % (MANUAL) 79 (42-76); PLATELET ESTIMATE INCREASED
[2024-07-15 11:11] LABS: ANISOCYTOSIS 1+; STOMATOCYTES 1+
[2024-07-15] MEDS: JEVITY 1.2 CAL 1,000 ML BOTTLE JT SCH (11:37)
[2024-07-15 12:00] VITALS: BP 125/72; TEMP 98.3; O2SAT 96
[2024-07-15] MEDS: IPRATROPIUM NEB FS 0.5 MG/2.5 ML AMPUL.NEB NEB SCH (12:00)
[2024-07-15] MEDS: HEPARIN SODIUM, PORCINE 5000 UNITS/1 ML VIAL SQ SCH (12:10)
[2024-07-15] MEDS: ALBUTEROL FS 2.5 MG/3 ML VIAL.NEB NEB SCH (13:41)
[2024-07-15] MEDS ORDERED: MORPHINE SULFATE SR 15 MG TABLET.SA PO SCH ×2 (14:30→21:00)
[2024-07-15 16:00] VITALS: BP 122/58; TEMP 98; O2SAT 98
[2024-07-15] MEDS: LACTOBACILLUS RHAMNOSUS GG 1 EACH CAP.SPRINK PO SCH (17:15)
[2024-07-15] MEDS: MORPHINE SULFATE INJ 2 MG/ML DISP.SYRIN IV PRN (17:20)
[2024-07-15 20:00] VITALS: BP 125/54; TEMP 98; O2SAT 98
[2024-07-15] MEDS: ATORVASTATIN 10 MG TABLET PO SCH (22:05)
[2024-07-15] MEDS: LOSARTAN POTASSIUM 50 MG TABLET JT SCH (22:05)
[2024-07-16] VITALS (9 sets, daily range): BP systolic 100–140; BP diastolic 49–69; TEMP 97–98.4; O2SAT 97–98
[2024-07-16] MEDS: INSULIN REGULAR, HUMAN 100 UNIT/ML 3 ML VIAL SQ PRN (00:32)
[2024-07-16 08:23] LABS: BASOPHILS # (AUTO) 0.1 K/uL (0.0-0.2); EOSINOPHILS # (AUTO) 0.3 K/uL (0.0-0.7)
[2024-07-16 08:44] LABS: EOSINOPHILS % (AUTO) 2.5 % (0.0-6.0); LYMPHOCYTES # (AUTO) 1.1 K/uL (0.8-4.8); LYMPHOCYTES % (AUTO) 9.2 % (20.0-44.0); MEAN CORPUSCULAR HEMOGLOBIN 28 PG (26.0-33.0); MEAN CORPUSCULAR HGB CONC 32 g/dl (31.0-36.0); MEAN CORPUSCULAR VOLUME 87 fL (82-100); MONOCYTES # (AUTO) 1.2 K/uL (0.1-1.30); MONOCYTES % (AUTO) 10.1 % (2.0-12.0); NEUTROPHILS # (AUTO) 9.1 K/uL (1.8-8.9); NEUTROPHILS % (AUTO) 77.2 % (43.0-81.0); PLATELET COUNT (AUTO) 526 K/uL (150-450); RED BLOOD CELL COUNT(AUTO) 2.32 MIL/uL (4.0-5.2); RED CELL DISTRIBUTION WIDTH 18.6 % (11.5-15.0); WHITE BLOOD COUNT (AUTO) 11.7 K/uL (4.3-11.0)
[2024-07-16 09:00] LABS: HEMATOCRIT 20 % (33-45); HEMOGLOBIN 6.4 g/dL (11.5-14.8)
[2024-07-16 09:03] LABS: CALCIUM, SERUM 8.1 mg/dL (8.5-10.1); CREATININE 0.4 mg/dL (0.6-1.3); MAGNESIUM 2.2 mg/dL (1.8-2.4); PHOSPHORUS 4.5 mg/dL (2.5-4.9); POTASSIUM 3.6 mmol/L (3.5-5.1)
[2024-07-16 09:06] LABS: NEUTROPHILS % (MANUAL) 82 (42-76)
[2024-07-16 09:07] LABS: ANISOCYTOSIS 1+; BASOPHILS % (MANUAL) 0 % (0.0-2.0); EOSINOPHILS % (MANUAL) 3 % (0-4); LYMPHOCYTES % (MANUAL) 8 % (16-48); MONOCYTES % (MANUAL) 7 % (0-11.0); PLATELET ESTIMATE INCREASED
[2024-07-16] MEDS: PANTOPRAZOLE 40 MG/PACK PACK JT SCH (09:43)
[2024-07-16] MEDS: PROSOURCE / PROSTAT (PYXIS) 30 ML UDC GT SCH (09:53)
[2024-07-16] MEDS: LACTOBACILLUS RHAMNOSUS GG 1 EACH CAP.SPRINK GT SCH (09:55)
[2024-07-17] VITALS: BP 115/52; TEMP 98.4
[2024-07-17 04:00] VITALS: BP 131/53; TEMP 98.1; O2SAT 97
[2024-07-17 07:47] LABS: BASOPHILS # (AUTO) 0.1 K/uL (0.0-0.2); BASOPHILS % (AUTO) 0.9 % (0.0-2.0); EOSINOPHILS # (AUTO) 0.4 K/uL (0.0-0.7); EOSINOPHILS % (AUTO) 4.1 % (0.0-6.0); HEMATOCRIT 27 % (33-45); HEMOGLOBIN 8.8 g/dL (11.5-14.8); LYMPHOCYTES # (AUTO) 0.9 K/uL (0.8-4.8); LYMPHOCYTES % (AUTO) 9.5 % (20.0-44.0); MEAN CORPUSCULAR HEMOGLOBIN 28 PG (26.0-33.0); MEAN CORPUSCULAR HGB CONC 32 g/dl (31.0-36.0); MEAN CORPUSCULAR VOLUME 86 fL (82-100); MONOCYTES # (AUTO) 1.1 K/uL (0.1-1.30); MONOCYTES % (AUTO) 10.8 % (2.0-12.0); NEUTROPHILS # (AUTO) 7.3 K/uL (1.8-8.9); NEUTROPHILS % (AUTO) 74.7 % (43.0-81.0); PLATELET COUNT (AUTO) 571 K/uL (150-450); RED BLOOD CELL COUNT(AUTO) 3.14 MIL/uL (4.0-5.2); RED CELL DISTRIBUTION WIDTH 17.8 % (11.5-15.0); WHITE BLOOD COUNT (AUTO) 9.8 K/uL (4.3-11.0)
[2024-07-17 07:51] LABS: CREATININE 0.4 mg/dL (0.6-1.3); MAGNESIUM 2.2 mg/dL (1.8-2.4); POTASSIUM 3.4 mmol/L (3.5-5.1)
[2024-07-17 08:00] VITALS: BP 119/72; TEMP 98.4; O2SAT 98
[2024-07-17] MEDS: LACTULOSE 10 G/15 ML UDC (PYXIS) JT SCH (08:55)
[2024-07-17] MEDS: POTASSIUM CHLORIDE 20 MEQ POWDER PACKET NG SCH (10:16)
[2024-07-17 12:00] VITALS: BP 121/59; TEMP 97.7; O2SAT 97
[2024-07-17 16:00] VITALS: BP 113/53; TEMP 98.1; O2SAT 96
== END 2024-07-17 17:07 | DRG 393 ==
LOC: ER 13:24 → MEDSG1 15:46 → TELE1 15:48
PROVIDERS: ADMIT Nurse Practitioner Acute Care; ATTEND Nurse Practitioner Acute Care
PROC: 5A1945Z Respiratory Ventilation, 24-96 Consecutive Hours (ICD-10-PCS; principal; 2024-07-14)
PROC: 30233N1 Transfusion of Nonautologous Red Blood Cells into Peripheral Vein, Percutaneous Approach (ICD-10-PCS; 2024-07-16)
DX: K94.21 Gastrostomy hemorrhage (principal); R53.2 Functional quadriplegia; C78.7 Secondary malignant neoplasm of liver and intrahepatic bile duct; D68.59 Other primary thrombophilia; R40.3 Persistent vegetative state; E44.0 Moderate protein-calorie malnutrition; D62 Acute posthemorrhagic anemia; J96.10 Chronic respiratory failure, unspecified whether with hypoxia or hypercapnia; C79.51 Secondary malignant neoplasm of bone; G93.49 Other encephalopathy; Z99.11 Dependence on respirator [ventilator] status; C78.02 Secondary malignant neoplasm of left lung; C78.01 Secondary malignant neoplasm of right lung; K31.6 Fistula of stomach and duodenum; C77.2 Secondary and unspecified malignant neoplasm of intra-abdominal lymph nodes; R65.10 Systemic inflammatory response syndrome (SIRS) of non-infectious origin without acute organ dysfunction; C56.1 Malignant neoplasm of right ovary; D72.829 Elevated white blood cell count, unspecified; E03.9 Hypothyroidism, unspecified; E11.9 Type 2 diabetes mellitus without complications; E88.09 Other disorders of plasma-protein metabolism, not elsewhere classified; I48.91 Unspecified atrial fibrillation; R13.10 Dysphagia, unspecified; Z17.0 Estrogen receptor positive status [ER+]; Z79.899 Other long term (current) drug therapy; Z86.711 Personal history of pulmonary embolism; Z86.73 Personal history of transient ischemic attack (TIA), and cerebral infarction without residual deficits; Z88.0 Allergy status to penicillin; Z90.11 Acquired absence of right breast and nipple; Z93.0 Tracheostomy status; Y83.8 Other surgical procedures as the cause of abnormal reaction of the patient, or of later complication, without mention of misadventure at the time of the procedure; Y73.8 Miscellaneous gastroenterology and urology devices associated with adverse incidents, not elsewhere classified; Y92.129 Unspecified place in nursing home as the place of occurrence of the external cause; I10 Essential (primary) hypertension; C50.911 Malignant neoplasm of unspecified site of right female breast; Z93.3 Colostomy status; Z68.26 Body mass index [BMI] 26.0-26.9, adult
CPT/HCPCS: 31720; 36415; 80048-TC; 80076-TC; 81001; 82962-TC; 83690-TC; 83735-TC; 84100-TC; 85025-TC; 85027-TC; 86850-TC; 94003-TC; 94760-TC; 94762-TC; 94799-TC; A4223; A4623; A7526; G0378; J1644; J1815; J1953; J2270; J2470; J2543; J7030; J7050; J7060; P9016; Q9967